=== PATIENT | female | born 1945 | race Caucasian/White ===

== ENCOUNTER → 2021-12-31 14:41 | Outpatient (CLI) | payer MEDICARE, SELFPAY ==
--- NOTE | ~2021-12-31 | MM_ITS ---
EXAMINATION: MM screening darcy BI w eulalio HISTORY: Screening TECHNIQUE: Craniocaudal and mediolateral oblique 3-D tomosynthesis images were obtained and synthetic 2-D images were generated. CAD analysis was submitted and interpreted. COMPARISON: No prior mammogram is available for comparison at this institution. BREAST PARENCHYMAL COMPOSITION: The breasts are heterogeneously dense, which may obscure small masses . FINDINGS: There are bilateral scattered asymmetries which are partially obscured by fibroglandular ti ssue. There are benign bilateral breast calcifications. No suspicious area of architectural distortio n is identified. IMPRESSION: 1. Bilateral breast asymmetries 2. Comparison to previous outside mammograms recommended to assess stability. BI-RADS Category 0: Incomplete: Needs additional imaging evaluation. Reviewed, dictated and finalized at location A.
--- NOTE | ~2021-12-31 | DEXA_ITS ---
Bone Density Report Name: FABIÁN HENRIQUEZ Age: 76 Sex: Female Ethnicity: White Date of : 1945 Indication: postmenopausal; screening for osteoporosis; height loss; hysterectomy; Referring Provider: TalAnnmarie Study: Bone densitometry was performed. Exam Date: December 31, 2021 Accession number: [id number] Bone Density: Region BMD T-score Z-score Classification AP Spine (L1-L4) 1.375 3.0 5.3 Normal Femoral Neck (Left) 0.912 0.6 2.6 Normal Total Hip (Left) 0.938 0.0 1.7 Normal Femoral Neck (Right) 1.004 1.4 3.4 Normal Total Hip (Right) 0.976 0.3 2.0 Normal Total Hip Mean 0.957 0.2 1.9 Normal World Health Organization criteria for BMD impression classify patients as: Normal (T-score at or above -1.0), Osteopenia (T-score between -1.0 and -2.5), or Osteoporosis (T-score at or below -2.5). 10-year Fracture Risk: FRAX not reported because: All T-scores for Spine Total, Hip Total, Femoral Neck at or above -1.0 Clinical Information Provided by Patient: Has the following medical conditions: Hysterectomy Patient maximum height was 70.5 Menopause Age: 30 Does not regularly consume dairy products Drinks caffeinated beverages Onset of menses at age 15 Number of children 0 Impression: The patient has normal bone mass. Discussion: BONE DENSITY IS ABOVE THE MINIMUM DESIRABLE LEVEL AT ALL SKELETAL SITES TESTED. This patient?s bone mineral density is above the minimum desirable level (T-score -1.0 or better) at all sites measured. The patient should follow a healthful lifestyle (good nutrition with adequate calcium and vitamin D, and appropriate weight-bearing exercise). Follow-Up: Consider repeating this study in 5 years or sooner if there is some new clinical indication. Reported by: GEOFFREY on 12/31/2021 3:03:00 PM. Reviewed, dictated and finalized at location AJennifer RAPP
== END ==
PROVIDERS: PCP Internal Medicine; Visit Provider Internal Medicine
DX: Z12.31 Encounter for screening mammogram for malignant neoplasm of breast (principal); Z78.0 Asymptomatic menopausal state; R92.8 Other abnormal and inconclusive findings on diagnostic imaging of breast
CPT/HCPCS: 77063; 77067; 77080

== ENCOUNTER → 2022-02-03 08:44 | Outpatient (CLI) | payer MEDICARE, SELFPAY ==
--- NOTE | ~2022-02-03 | MMUS_ITS ---
EXAMINATION: MM diagnostic darcy BI w eulalio, US breast BI complete HISTORY: Follow-up breast asymmetries TECHNIQUE: Additional 3-D tomosynthesis images of the breasts were performed and synthetic 2-D images were generated. CAD analysis was submitted and interpreted. High resolution bilateral complete breas t ultrasound was performed. COMPARISON: Comparison to multiple prior studies sequentially, with oldest reviewed study dated 09/26. BREAST PARENCHYMAL COMPOSITION: The breasts are heterogenously dense, which may obscure small masses FINDINGS: MAMMOGRAPHIC FINDINGS: There are benign bilateral breast calcifications. No suspicious masses, calcifications or architectur al distortion in either breast to suggest malignancy. ULTRASOUND: Complete bilateral US of all 4 quadrants of the breasts and retroareolar region was reviewed. Right breast: At 12:00, 5 cm from the nipple there is an oval hypoechoic mass with parallel orientati on, no posterior features and no internal vascularity measuring 3 mm, likely benign. Left breast: Normal heterogeneous echotexture without focal solid or cystic mass. IMPRESSION: 1. Probable benign right breast mass at 12:00, 5 cm from the nipple. 2. Recommend 6 month follow-up limited right breast ultrasound BI-RADS category 3, probably benign findings. Reviewed, dictated and finalized at location A. IMPRESSION: 1. Probable benign right breast mass at 12:00, 5 cm from the nipple. 2. Recommend 6 month follow-up limited right breast ultrasound BI-RADS category 3, probably benign findings.
== END ==
PROVIDERS: PCP Internal Medicine; Visit Provider Internal Medicine
DX: R92.8 Other abnormal and inconclusive findings on diagnostic imaging of breast (principal)
CPT/HCPCS: 76641; 77062; 77066; G0279

== ENCOUNTER 2022-06-10 10:19 | Emergency (ER) | payer MEDICARE, SELFPAY ==
--- NOTE | ~2022-06-10 | XR_ITS ---
EXAMINATION: XR ankle LT min 3V DATE: 06/10/2022 10:55 INDICATION: Left ankle pain. Fall. TECHNIQUE: 4 views of left ankle were obtained. COMPARISON: None. FINDINGS: Bone alignment is normal. No fracture. There is mild midfoot osteoarthritis. There is an en thesophyte at lateral aspect of calcaneal tuberosity. There is ankle soft tissue swelling. IMPRESSION: 1. No acute fracture. Reviewed, dictated and finalized at location A. NT SEARCHER IMPRESSION: 1. No acute fracture.
--- NOTE | ~2022-06-10 | XR_ITS ---
EXAMINATION: XR knee LT 3V DATE: 06/10/2022 10:55 INDICATION: Left knee injury and pain. TECHNIQUE: 3 views of left knee were obtained. COMPARISON: None. FINDINGS: Bone alignment is normal. No fracture. There is severe osteoarthritis of medial compartment and moderate osteoarthritis of lateral and patellofemoral compartments. There is a moderate-sized kn ee joint effusion. IMPRESSION: 1. Severe left knee osteoarthritis. 2. Moderate-sized left knee joint effusion. Reviewed, dictated and finalized at location A. TOR TECHNICIAN
--- NOTE | 2022-06-10 10:27 | ED.LOWEXIN ---
HPI - Extremity Injury (Lower) General Chief Complaint: Extremity Injury, Lower Stated Complaint: FALL/INJURED L KNEE/L ANKLE Time Seen by Provider: 06/10/22 11:01 Source: patient, RN notes reviewed and old records reviewed Mode of arrival: ambulatory Limitations: no limitations History of Present Illness HPI Narrative: 76-year-old female presents to the [facility] after tripping and falling with complaints of left knee and left ankle pain. Patient states that she was caring too much stuff last night about 1930 and fell onto her knee but also having pain to her ankle. No bruising noted. Minor swelling noted to the anterior knee. Decreased range of motion secondary to pain Has taken Tylenol. Has a history of diabetes, neuropathy and elevated blood pressure Related Data Home Medications Medication Instructions Recorded Confirmed metoprolol succinate 25 mg 25 mg PO DAILY 12/23/19 06/10/22 tablet,extended release 24 hr valsartan 80 mg tablet 80 mg PO DAILY 03/30/20 06/10/22 atorvastatin 20 mg tablet 20 mg DIRECTED 06/10/22 06/10/22 pantoprazole 40 mg tablet,delayed 40 mg PO DIRECTED 06/10/22 06/10/22 release Allergies Allergy/AdvReac Type Severity Reaction Status Date / Time prednisone Allergy Unknown Unknown Verified 07/08/21 09:36 Review of Systems Review of Systems: All systems reviewed & are unremarkable except as noted in HPI and below Constitutional: Constitutional: Reports no additional constitutional complaints, Denies chills and Denies fever(s) Eyes: Eyes: Reports no additional eye complaints ENT: Reports system reviewed and no additional complaints, except as documented Cardiovascular: Cardiovascular: Reports no additional cardiovascular complaints Respiratory: Respiratory: Reports no additional respiratory complaints Gastrointestinal: Gastrointestinal: Reports no additional gastrointestinal complaints Musculoskeletal: Musculoskeletal: Reports as per HPI, Reports arthralgias (Left knee, left ankle) and Reports joint swelling (Left knee, left ankle) Integumentary/Breasts: Skin/Breast: Reports system reviewed and no additional complaints, except as docu Neurologic: Reports system reviewed and no additional complaints, except as documented Psychiatric: Psychiatric: Reports no additional psychiatric complaints Allergic/Immunologic: Allergic/Immunologic: Reports no additional allergic/immunologic complaints [facility] Past Medical History Medical History (Updated 06/10/22 @ 11:14 by Tara Kim APRN) Diabetes mellitus HTN (hypertension) Family History Family History Sibling Diabetes mellitus Malignant neoplasm of prostate Mother Diabetes mellitus, Onset Age: 67 Acute myocardial infarction, Onset Age: 67 Father Diabetes mellitus, Onset Age: 71 Cerebrovascular accident, Onset Age: 71 Social History Social History Smoking status: Never smoker Alcohol intake: never Comments At the time of my signature, I reviewed and agree with the nursing past medical, surgical, social, and family history. There is no relevant family history pertinent to the patient complaint. Exam Const: General: healthy appearing, comfortable, no acute distress, well developed, alert and well nourished Nutritional Appearance: well nourished Orientation/consciousness: patient oriented x3 Limitations: no limitations HENMT: Head: normal to inspection Ears: external ears normal Eyes: General: appearance normal, both eyes and all related structures Pupils: Equal, round and reactive pupils present Neck: Neck: normal visual inspection, full ROM, no lymphadenopathy and no meningeal signs Chest: Chest palpation & inspection: normal inspection of the chest Resp: Effort & Inspection: normal respiratory effort and no use of accessory muscles Cardio: Rate: regular rate Rhy
[2022-06-10 10:33] VITALS: BP 180/86; PULSE 79; RESP 16; TEMP 36.1; O2SAT 99
== END 2022-06-10 11:30 | disposition home or self-care (01) ==
PROVIDERS: Emergency Provider Nurse Practitioner; PCP Internal Medicine
DX: M17.12 Unilateral primary osteoarthritis, left knee (principal); S93.402A Sprain of unspecified ligament of left ankle, initial encounter; M25.462 Effusion, left knee; E11.9 Type 2 diabetes mellitus without complications; I10 Essential (primary) hypertension; W01.0XXA Fall on same level from slipping, tripping and stumbling without subsequent striking against object, initial encounter
CPT/HCPCS: 73562; 73610; 99214; G0463

== ENCOUNTER 2022-09-04 05:56 | Emergency (ER) | payer MEDICARE, SELFPAY ==
[2022-09-04 05:59] VITALS: BP 122/68; PULSE 88; RESP 16; TEMP 36.7; O2SAT 98
--- NOTE | 2022-09-04 07:33 | ED.GENADULT ---
HPI - General Adult General Chief complaint: Back Pain/Injury Stated complaint: hip and back pain Time Seen by Provider: 09/04/22 07:04 History of Present Illness HPI narrative: 77-year-old female presented emerged department for evaluation of pain in her left lower back and left buttock. Patient states she is in the process of having follow-up with Ortho to have bilateral hip replacements. Patient states yesterday that she started having increased pain in her left hip. Patient did take some Tylenol for pain control but states she started to get upset stomach so she has not taken any pain since. Patient denies any specific falls or injuries. Patient denies any fevers. Patient denies any associated numbness or weakness. Patient describes a sharp pain in posterior left buttock that does radiate just down the the side of her leg. Patient denies any associated numbness or weakness of the left lower leg and denies any radiation of the pain to her feet. Patient does have a history of diabetes, hypertension and neuropathy Related Data Home Medications Medication Instructions Recorded Confirmed metoprolol succinate 25 mg 25 mg PO DAILY 12/23/19 06/10/22 tablet,extended release 24 hr valsartan 80 mg tablet 80 mg PO DAILY 03/30/20 06/10/22 atorvastatin 20 mg tablet 20 mg DIRECTED 06/10/22 06/10/22 pantoprazole 40 mg tablet,delayed 40 mg PO DIRECTED 06/10/22 06/10/22 release Allergies Allergy/AdvReac Type Severity Reaction Status Date / Time prednisone Allergy Unknown Unknown Verified 07/08/21 09:36 Review of Systems Review of Systems: CONSTITUTIONAL: Denies fever, chills, or sweats. EYES: Denies visual changes, redness, or discharge. ENT: Denies rhinorrhea, congestion, sore throat, or otalgia. CARDIOVASCULAR: Denies chest pain, palpitations, or edema. RESPIRATORY: Denies cough or dyspnea. GASTROINTESTINAL: Denies abdominal pain, nausea, vomiting, or diarrhea. GENITOURINARY: Denies dysuria or hematuria. SKIN: Denies rash or itching. MUSCULOSKELETAL: See HPI NEUROLOGIC: Denies headache, numbness, or weakness. [facility] Past Medical History Medical History (Updated 09/04/22 @ 07:39 by Braden Gutierrez MD) Diabetes mellitus HTN (hypertension) Family History Family History Sibling Diabetes mellitus Malignant neoplasm of prostate Mother Diabetes mellitus, Onset Age: 67 Acute myocardial infarction, Onset Age: 67 Father Diabetes mellitus, Onset Age: 71 Cerebrovascular accident, Onset Age: 71 Social History Social History Smoking status: Never smoker Alcohol intake: never Exam Narrative: APPEARANCE: Well appearing, no pain, no distress, well-nourished. HEAD: normocephalic, atraumatic. EYES: PERRLA/EOMI, conjunctivae clear. NOSE: Normal no drainage NECK: Supple. No adenopathy, no masses. RESPIRATORY: Airway patent, respirations nonlabored. Clear to auscultation bilaterally, no rales, rhonchi, wheezing. CARDIOVASCULAR: Regular rate and rhythm without murmurs rubs or gallops. ABDOMINAL: Soft, nontender, nondistended, normal bowel sounds MUSCULOSKELETAL: No midline spinal tenderness to palpation. Some tenderness over the left buttock. Normal strength of the left lower leg NEURO: Alert. Cranial nerves II through XII intact. Grossly intact. SKIN: Warm, dry. Normal Color Course Course Emergency Course: Suspect sciatic nerve issue. Patient will be treated with IM Toradol, p.o. Norflex and p.o. [place]. Patient and were updated on the results of the exam and plan for treatment. Patient was encouraged of close follow-up with her primary care physician as well. Patient was educated on reasons to return to the emergency room. All questions concerns were addressed. Vital Signs Vital signs: Vital Signs Temperature 98.0 F 09/04/22 05:59 Pulse Rate 88
[2022-09-04] MEDS: KETOROLAC 30 MG/ML VIAL (*BKC) IM (07:41)
[2022-09-04] MEDS: HYDROcodone/acetaminophen (*CRX) 5-325 MG TABLET 1 TAB PO (07:41)
[2022-09-04] MEDS: CYCLOBENZAPRINE HCL 10 MG TABLET PO (07:46)
== END 2022-09-04 07:54 | disposition home or self-care (01) ==
PROVIDERS: Emergency Provider Emergency Medicine; PCP Internal Medicine
DX: M54.42 Lumbago with sciatica, left side (principal); I10 Essential (primary) hypertension; E11.40 Type 2 diabetes mellitus with diabetic neuropathy, unspecified
CPT/HCPCS: 96372; 99283; A9270; J1885

== ENCOUNTER 2023-08-31 13:43 | Outpatient (CLI) | payer MEDICARE, SELFPAY ==
--- NOTE | ~2023-08-31 | MR_ITS ---
MRI of the lumbar spine Clinical History: Spinal stenosis Technique: Axial T2-weighted images, and sagittal T1-weighted, T2-weighted, and and T2 fat-sat images were acquired. Findings: There is no fracture or subluxation lumbar spine. There is straightening of the normal lumb ar lordosis. There is an intraosseous hemangioma of the L3 vertebral body. No suspicious marrow signa l abnormality seen. At L1-L2, there is diffuse disc bulge and moderate to advanced facet arthropathy. There is minimal ce ntral canal stenosis. There is moderate to advanced bilateral neural foraminal narrowing. At L2-L3, there is degenerative disc narrowing. Mild disc bulge and severe facet arthropathy result m inimal central canal stenosis. There is mild right neural foraminal narrowing. Left neural foramen pr eserved. At L3-L4, there is degenerative disc narrowing. Disc bulge and severe facet arthropathy result in mil d to moderate central canal stenosis. There is moderate left neural foraminal narrowing. Right neural foramen preserved. At L4-L5, there is degenerative disc narrowing with mild disc bulge and severe facet arthropathy. The re is mild central canal stenosis. There is minimal right neural foraminal narrowing. Left neural for amen preserved. At L5-S1, there is severe degenerative disc narrowing. There is disc osteophyte complex and moderate to advanced facet arthropathy, with mild to moderate central canal stenosis. There is mild left neura l foraminal narrowing. Right neural foramen preserved. Paravertebral soft tissues are unremarkable. Impression: Moderate degenerative spondylosis, as above. Reviewed, dictated and finalized at location . RACTIVE MARKETING STRATEGIST Impression: Moderate degenerative spondylosis, as above.
== END 2023-08-31 13:44 ==
PROVIDERS: PCP Orthopaedic Surgery; Visit Provider Orthopaedic Surgery
DX: M48.07 Spinal stenosis, lumbosacral region (principal); M43.06 Spondylolysis, lumbar region; M47.817 Spondylosis without myelopathy or radiculopathy, lumbosacral region
CPT/HCPCS: 72148

== ENCOUNTER 2024-03-30 09:58 | Outpatient (CLI) | payer MEDICARE, SELFPAY ==
--- NOTE | 2024-03-30 11:00 | NEURO_ITS ---
Impression: # Complains of numbness of right hand. # Severe right Carpal Tunnel Syndrome. # No ulnar neuropathy. # Needle/EMG exam mildly abnormal in right APB. Nerve Conduction Studies Anti Sensory Summary Table Stim Site NR Peak (ms) P-T Amp (?V) Site1 Site2 Delta-P (ms) Dist (cm) Yasmani (m/s) Left Median Anti Sensory (2-3nd Digit) Wrist 3.7 48.8 Wrist 2-3nd Digit 3.7 14.0 38 Wrist 3.7 63.7 Wrist 2-3nd Digit 3.7 14.0 38 Right Median Anti Sensory (2-3nd Digit) Wrist 6.4 8.1 Wrist 2-3nd Digit 6.4 14.0 22 Wrist 8.8 32.8 Wrist 2-3nd Digit 6.4 14.0 22 Left Radial Anti Sensory (Base 1st Digit) Wrist 2.8 18.6 Wrist Base 1st Digit 2.8 0.0 Right Radial Anti Sensory (Base 1st Digit) Wrist 2.6 21.0 Wrist Base 1st Digit 2.6 0.0 Left Ulnar Anti Sensory (5th Digit) Wrist 2.7 25.2 Wrist 5th Digit 2.7 14.0 52 Right Ulnar Anti Sensory (5th Digit) Wrist 2.8 21.6 Wrist 5th Digit 2.8 14.0 50 Motor Summary Table Stim Site NR Onset (ms) O-P Amp (mV) Site1 Site2 Delta-0 (ms) Dist (cm) Yasmani (m/s) Left Median Motor (Abd Poll Brev) Wrist 4.1 3.2 Elbow Wrist 5.6 33.0 59 Elbow 9.7 3.7 Right Median Motor (Abd Poll Brev) Wrist 8.4 5.1 Elbow Wrist 5.7 31.0 54 Elbow 14.1 4.7 Left Ulnar Motor (Abd Dig Minimi) Wrist 2.6 4.9 A Elbow Wrist 5.4 31.0 57 A Elbow 8.0 4.4 Right Ulnar Motor (Abd Dig Minimi) Wrist 2.8 5.2 A Elbow Wrist 5.7 32.0 56 A Elbow 8.5 3.8 F Wave Studies NR F-Lat (ms) L-R F-Lat (ms) Left Median (Mrkrs) (Abd Poll Brev) 29.53 3.80 Right Median (Mrkrs) (Abd Poll Brev) 33.33 3.80 Left Ulnar (Mrkrs) (Abd Dig Min) 29.77 1.17 Right Ulnar (Mrkrs) (Abd Dig Min) 28.60 1.17 EMG Side Muscle Nerve Root Ins Act Fibs Amp Dur Recrt Comment Right 1stDorInt Ulnar C8-T1 Nml Nml Nml Nml Nml Right Ext Indicis Radial (Post Int) C7-8 Nml Nml Nml Nml Nml Right Ext Digitorum Radial (Post Int) C7-8 Nml Nml Nml Nml Nml Right PronatorTeres Median C6-7 Nml Nml Nml Nml Nml Right ABD Dig Min Ulnar C8-T1 Nml Nml Nml Nml Nml Left Ext Indicis Radial (Post Int) C7-8 Nml Nml Nml Nml Nml Left Ext Digitorum Radial (Post Int) C7-8 Nml Nml Nml Nml Nml Left BrachioRad Radial C5-6 Nml Nml Nml Nml Nml Left PronatorTeres Median C6-7 Nml Nml Nml Nml Nml Right Abd Poll Brev Median C8-T1 Nml Nml Nml >12ms +1 MTDD
== END 2024-03-30 09:59 | disposition home or self-care (01) ==
PROVIDERS: PCP Internal Medicine; Visit Provider Orthopaedic Surgery
DX: G56.01 Carpal tunnel syndrome, right upper limb (principal)
CPT/HCPCS: 95886; 95911

== ENCOUNTER 2024-05-05 00:24 | Day surgery (SDC) | payer MEDICARE, SELFPAY ==
[2024-04-28 14:33] VITALS: BMI 23.9
--- NOTE | 2024-04-28 14:41 | PC.NURSE ---
Report to the Outpatient Waiting Room, entrance under the green pavilion located off [facility], at time _0930_ on date _[id number]_. Planned Procedure Time: _1130_.? Time changes happen often and if your time is changed the preop area will call you the afternoon before. - You and your visitor will be asked to self-screen and do not enter if you have any COVID symptoms. Please call surgeon if you need to reschedule. - A mask is optional within the hospital at this time. Patients may have clear liquids (water, carbonated beverages, clear teas, apple juice) until 3 hours prior to surgery with a maximum of 20 ounces. - No food from midnight until time of surgery and no smoking Take only the following medications with a SIP of water on the morning of surgery: __Metoprolol and Pregabalin DO NOT STOP ANY OF YOUR OTHER PRESCRIPTION MEDICATIONS PRIOR TO SURGERY EXCEPT THE FOLLOWING Medications to discontinue per physician __Probiotic stop 05-02-2024, Eliquis stop [phone] Please no make-up, nail kinyarwanda, hairspray, perfume, deodorant, or body powder the day of surgery.? No jewelry (including any body piercings) or valuables the day of surgery, leave them at home.? Please take a shower or bath the night before, or the morning of, surgery with an antibacterial soap.? Wear comfortable, loose fitting clothing.? - Jewelry must be removed prior to entering the operating room.? Rings and piercings that are not removed may be cut off. - The hospital will not accept responsibility for valuables.? - Please leave all valuables, including medications, at home the day of surgery. If you are going home after surgery, a licensed car pick up driver must drive you home.? - NO public transportation without another adult if you receive anesthesia. - We recommend that an adult stay with you for 24 hours following discharge. - We also recommend that you do not drive, make important decision, drink alcoholic beverages, or take any drugs that were not prescribed by your health care provider for at least 24 hours after your discharge time. Follow any additional instructions given to you from your surgeon. Telephone instructions given to __Emmy___and asked if any additional questions and then verbalized understanding. Patient advised to call surgeon office or pre surgery nurse liaison [phone] if any additional questions.
--- NOTE | 2024-05-02 12:27 | PM.IMHP ---
H&P: HPI History of Present Illness Date/Time: 05/02/24 12:27 Chief Complaint: Right carpal tunnel syndrome Narrative: 78-year-old female who presents today for a right carpal tunnel release. She has been having symptoms in the right hand that started in September or October of this year. Patient been waking up at night with her hand sleep. She has also been experiencing numbness through the day. Her numbness predominantly affects the thumb index and long finger. She is having no numbness in the 5th finger. 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 At this point patient has continued symptoms in the hand. Option of surgical release was discussed with her and patient would like to proceed with that. Review of Systems Review of Systems: All systems reviewed & are unremarkable except as noted in HPI and below PMFSH Past Medical History Medical History A-fib Diabetes mellitus History of myocardial infarction HTN (hypertension) Surgical History Surgical History H/O: hysterectomy History of back surgery Family History Family History (Updated 02/17/24 @ 16:11 by Kristin Colbert [facility]) Sibling Diabetes mellitus Malignant neoplasm of prostate Mother Diabetes mellitus, Onset Age: 67 Acute myocardial infarction, Onset Age: 67 Father Diabetes mellitus, Onset Age: 71 Cerebrovascular accident, Onset Age: 71 Social History Social History (Updated 04/04/24 @ 14:38 by Stefanie Fan CMA) Smoking status: Never smoker Second hand tobacco smoke exposure: Yes Alcohol intake: current Substance use: never Substance use type: does not use Do You Feel Safe in your Home?: Yes Lack of Transportation: No Lack of Food: Never True Current Housing: I Have Housing Concerned About Future Housing: No Difficulty Paying Gas/Electric Bills: No Difficulty Paying for Meds: No Currently Unemployed: No Education: Bachelor's Degree Difficulty w/ Childcare or Family Care: No Living arrangements: with family Occupation/Education: retired 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 Gender identity (if verbalized by the patient): Female Spiritual care concerns: No Meds Home Medications and Allergies Home Medications Medication Instructions Recorded Confirmed Type metoprolol succinate 25 mg 25 mg PO DAILY 12/23/19 04/28/24 History tablet,extended release 24 hr pregabalin 150 mg capsule 150 mg PO TID #90 caps 08/12/21 04/28/24 Rx pantoprazole 40 mg tablet,delayed 40 mg PO DIRECTED 06/10/22 04/28/24 History release acetaminophen 500 mg capsule 500 mg PO Q6H PRN Pain 02/17/24 04/28/24 History apixaban 5 mg tablet (Eliquis) 5 mg PO BID 02/17/24 04/28/24 History atorvastatin 40 mg tablet 40 mg PO DAILY 02/17/24 04/28/24 History famotidine 20 mg tablet 20 mg PO BID 02/17/24 04/28/24 History glipizide 5 mg tablet 5 mg PO DAILY 02/17/24 04/28/24 History valsartan 320 1 tablet PO DAILY 02/17/24 04/28/24 History mg-hydrochlorothiazide 12.5 mg tablet Lactobacillus 40-Bifidobact 1 cap PO DAILY 04/28/24 04/28/24 History 3-S.thermophilus 100 billion cell capsule (Probiotic) magnesium 500 mg tablet 500 mg PO BID 04/28/24 04/28/24 History Allergies Allergy/AdvReac Type Severity Reaction Status Date / Time prednisone AdvReac Intermediate Unknown Verified 04/28/24 14:28 pneumonia vaccine AdvReac Intermediate Swelling Uncoded 04/28/24 14:28 Exam Narrative: 78-year-old female alert pleasant. She has full range of motion of the right wrist fingers and elbow. She has a very positive Tinel's over the median nerve which causes or tingling in the long finger. There is normal thenar eminence in bulk. Normal interosseous strength. 2+ radial pulse. Positive carpal t
[2024-05-05] VITALS (9 sets, daily range): BP systolic 114–146; BP diastolic 62–86; PULSE 65–69; RESP 12–20; TEMP 36.3; O2SAT 99–100
[2024-05-05] MEDS: ACETAMINOPHEN 500 MG TABLET 1000 MG PO (10:27)
[2024-05-05] MEDS: LACTATED RINGERS 1,000 ML 30 ML IV CONT (10:45)
[2024-05-05 10:49] LABS: Glucose Point of Care 125 mg/dl (65-105)
[2024-05-05] MEDS: KETOROLAC 15 MG/ML VIAL (*BKC) IV PUSH (11:19)
--- NOTE | 2024-05-05 11:47 | WPDHPUPDATE1 ---
History and Physical Update Update Date/Time: 05/05/24 11:47 History and Physical has been reviewed, including an updated exam of the patient. There are NO changes in the patient's condition. Risks, benefits, and alternatives have been discussed and questions answered. Patient agrees to proceed with procedure.
--- NOTE | 2024-05-05 12:03 | P.PNAN_ITS ---
Anes - Eval Final PreProcedure Day of Procedure 05/05/24 12:03 Patient weight: normal Heart: regular rate and rhythm Lungs: clear to auscultation and normal air movement Airway: Mallampati scale class III Neurological: alert and oriented Last oral intake: >/= 8 hours ASA classification: III Emergent: no Anesthetic plan: proceed Anesthesia type and monitoring: general LMA Results Review: All pre-operative results and documents have been reviewed as part of the pre- operative evaluation. Informed Consent: The patient's anesthetic plan and its attendant risks and benefits were discussed with the patient/family/POA. Questions were solicited and answers provided to the satisfaction of the patient/family/POA.
--- NOTE | 2024-05-05 12:03 | WPDANESEPPF ---
Anes - Initial Pre Proc Eval Procedure: Operation Date: 05/05/24 11:30 Proposed Procedures p Right Carpal Tunnel Release - Steffen Ceballos MD Date/Time: 05/05/24 12:03 Surgeon: Steffen Ceballos MD Pre Op Diagnosis: right carpal tunnel syndrome Patient Data Age: 78 Gender: F Height: 1.77 m Weight: 76.7 kg Last Vital Signs Temp 36.3 C L 05/05/24 10:59 Pulse 65 05/05/24 10:59 Resp 16 05/05/24 10:59 BP 137/70 05/05/24 10:59 Pulse Ox 100 05/05/24 10:59 O2 Del Method Room Air 05/05/24 10:59 Allergies Allergy/AdvReac Type Severity Reaction Status Date / Time prednisone AdvReac Intermediate Unknown Verified 05/05/24 10:59 pneumonia vaccine AdvReac Intermediate Swelling Uncoded 05/05/24 10:59 Home Medications Medication Instructions Recorded Confirmed Type metoprolol succinate 25 mg 25 mg PO DAILY 12/23/19 04/28/24 History tablet,extended release 24 hr pregabalin 150 mg capsule 150 mg PO TID #90 caps 08/12/21 04/28/24 Rx pantoprazole 40 mg tablet,delayed 40 mg PO DIRECTED 06/10/22 04/28/24 History release acetaminophen 500 mg capsule 500 mg PO Q6H PRN Pain 02/17/24 04/28/24 History apixaban 5 mg tablet (Eliquis) 5 mg PO BID 02/17/24 04/28/24 History atorvastatin 40 mg tablet 40 mg PO DAILY 02/17/24 04/28/24 History famotidine 20 mg tablet 20 mg PO BID 02/17/24 04/28/24 History glipizide 5 mg tablet 5 mg PO DAILY 02/17/24 04/28/24 History valsartan 320 1 tablet PO DAILY 02/17/24 04/28/24 History mg-hydrochlorothiazide 12.5 mg tablet Lactobacillus 40-Bifidobact 1 cap PO DAILY 04/28/24 04/28/24 History 3-S.thermophilus 100 billion cell capsule (Probiotic) magnesium 500 mg tablet 500 mg PO BID 04/28/24 04/28/24 History Laboratory Tests 05/05/24 10:46 POC Capillary Glucose 125 H mg/dl (65-105) Patient hx anesthesia problems: none Family hx anesthesia problems: none Results Review: All pre-operative results and documents have been reviewed as part of the pre-operative evaluation. [facility] Past Medical History Medical History A-fib Diabetes mellitus History of myocardial infarction HTN (hypertension) Surgical History Surgical History H/O: hysterectomy History of back surgery Family History Family History Sibling Diabetes mellitus Malignant neoplasm of prostate Mother Diabetes mellitus, Onset Age: 67 Acute myocardial infarction, Onset Age: 67 Father Diabetes mellitus, Onset Age: 71 Cerebrovascular accident, Onset Age: 71 Social History Social History Smoking status: Never smoker Second hand tobacco smoke exposure: Yes Alcohol intake: current Substance use: never Substance use type: does not use Do You Feel Safe in your Home?: Yes Lack of Transportation: No Lack of Food: Never True Current Housing: I Have Housing Concerned About Future Housing: No Difficulty Paying Gas/Electric Bills: No Difficulty Paying for Meds: No Currently Unemployed: No Education: Bachelor's Degree Difficulty w/ Childcare or Family Care: No Living arrangements: with family Occupation/Education: retired 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
[2024-05-05] MEDS: ceFAZolin 2 GM/D5W 50 ML 2 GM/50 ML BAG IVPB (12:14)
[2024-05-05] MEDS: LIDOCAINE HCL 1% LOCAL INJ 10 ML VIAL INFILTRATE (12:14)
--- NOTE | 2024-05-05 12:54 | W.PM.PROC2 ---
Procedure Note - Detailed Date of Procedure 05/05/24 Pre-op Diagnosis right carpal tunnel syndrome Post-op Diagnosis Same Procedure Performed Right carpal tunnel release Surgeon Steffen Ceballos MD [employer] Director Cruz Souza Anesthesia General Description of Procedure Patient was brought to the operating room and general anesthesia was administered. The right arm was prepped draped usual fashion. She received 2 g of Ancef preoperatively. Limb was exsanguinated and tourniquet elevated to 220 mmHg. Local anesthesia was administered with 5 cc of 1% plain lidocaine A 2 cm longitudinal incision was made at the base of the palm in line with the radial border of the 4th ray. Dissection was carried down through the superficial palmar fascia to the transverse carpal ligament which was longitudinally incised. Complete release was achieved distally. Proximally a subcutaneous fat was elevated off the distal volar forearm fascia and a [place] elevator pass underneath the fascia to from the underlying nerve the fascia was split for a distance of 3 cm proximal to the flexor crease of the wrist completed decompression. The nerve was inspected. It was somewhat hyperemic and I perceived a slight indentation corresponding to the level of the transverse carpal ligament. Tourniquet was released and hemostasis was achieved wound irrigated with saline and closed with 5 0 nylon suture soft bulky dressing applied the patient transferred postop recovery room stable condition. Estimated Blood Loss 1 [facility] Billing Surgery - Charge Forward: Surgery Billing (Right carpal tunnel release)
[2024-05-05 13:09] LABS: Glucose Point of Care 97 mg/dl (65-105)
== END 2024-05-05 14:34 | disposition home or self-care (01) ==
PROVIDERS: PCP Internal Medicine; Visit Provider Orthopaedic Surgery
PROC: (CPT 64721; principal; 2024-05-05 11:30)
DX: G56.01 Carpal tunnel syndrome, right upper limb (principal); I10 Essential (primary) hypertension; E11.9 Type 2 diabetes mellitus without complications; I48.91 Unspecified atrial fibrillation; I25.2 Old myocardial infarction; Z79.01 Long term (current) use of anticoagulants; Z79.84 Long term (current) use of oral hypoglycemic drugs; Z98.890 Other specified postprocedural states; Z98.1 Arthrodesis status; Z80.42 Family history of malignant neoplasm of prostate; Z82.49 Family history of ischemic heart disease and other diseases of the circulatory system
CPT/HCPCS: 64721; 82948; A9270; J0690; J1100; J1596; J1885; J2003; J2405; J2704; J3010; J7120

== ENCOUNTER 2024-11-24 08:44 | Outpatient (NON) | payer MEDICARE, SELFPAY ==
--- OUTSIDE RECORDS SUMMARY | 2024-11-25 08:48 | XMS_ITS | Encounter Summary ---
Author Organization [facility] Address [address] [place] [address] Care Team Providers Care Process Development Engineer Name Role Phone Jose Maria Hernandez MD Primary Care Provider [phone] Annmarie Parada MD Primary Care Provider [phone] Madison Oakley RN Unavailable [phone] Encounter Details Date Type Department Care Team (Late st Contact Info) Description 09/25/2021 Abstract [facility], [address] [address] Abner Yin MA Social History Tobacco Use Types Packs/Day Years Used Date Smoking Tobacco: Never Smokeless Tobacco: Never Alcohol Use Standard Drinks/Week Comments Yes 1 (1 standard drink = 0.6 oz pur e alcohol) PHQ-2 Answer Date Recorded PHQ-2 Score - If the patient scores above 3, please move on to questions 3-9 0 09/26/2021 Comments Unknown Sex and Gender Information Value Date Recorded Sex Assigned at Female 09/23/2024 11:35 AM CRAWLER TRACTOR OPERATOR Legal Sex Female 1:27 PM CDT Gender Identity Female 09/23/2024 11:35 AM CRAWLER TRACTOR OPERATOR Sexual Orientation Straight 09/23/2024 11 :35 AM CRAWLER TRACTOR OPERATOR COVID-19 Exposure Response Date Recorded In the last 10 days, have yo u been in contact with someone who was confirmed or suspected to have Coronavirus/COVID-19? No / Unsure 09/25/2021 3:11 PM CRAWLER TRACTOR OPERATOR documented as of this encounter Plan of Treatment Upcoming Encounters Date Type Department Care Team (Late st Contact Info) Description 04/07/2025 9:00 AM CDT Office Visit [facility] Multispecialty Care [place] [address] [place] [address] [address] [place] [address] Annmarie Parada MD [address] [facility] [address] [place] [address] 06/19/2025 11:45 AM CRAWLER TRACTOR OPERATOR Office Visit [facility] [place] [address] Slim Florence MD Three [facility], [address] [place] [address] documented as of this encounter Procedures Procedure Name Priority Date/Time Associated Diagnosis Comments COMPREHENSIVE METABOLIC PANEL Routine 05/28/2021 documented in this encounter Results * COMPREHENSIVE METABOLIC PANEL (05/28/2021) SODIUM S/P/B 143 POTASSIUM S/P/B 4.8 CHLORIDE S/P/B 107 CALCIUM S/P/B 8.2 BUN 12 CREATININE S/P/B 0.6 0.5 - 1.0 ALKALINE PHOSPHATASE S/P/B 117 ALT 11 AST 13 BILIRUBIN TOTAL S/P/B 0.6 ALBUMIN S/P/B 3.8 3.5 - 5.0 TOTAL PROTEIN S/P/B 6.3 05/28/2021 us Doc [facility] Abstract LABORATORY Final Result documented in this encounter Visit Diagnoses Not on filedocumented in this encounter Care Teams Process Development Engineer Relationship Specialty Start Date End Date Jose Maria Hernandez MD [address] [place] [address] PCP - General INTERNAL MEDICINE 05/01/21 09/25/21 Annmarie Parada MD [address] [facility] [address] [place] [address] PCP - General INTERNAL MEDICINE 09/26/21 Madison Oakley, RN [address] [place] [address] Digital Composer (Ambulatory) REGISTERED NURSE 03/05/23 04/05/23 documented as of this encounter
--- OUTSIDE RECORDS SUMMARY | 2024-11-25 08:48 | XMS_ITS | Encounter Summary ---
Author Organization [facility] Address [facility] [place] [address] Care Team Providers Care Monogram And Letter Paster Name Role Phone Annmarie Parada MD Primary Care Provider [phone] Encounter Details Date Type Department Care Team (Late st Contact Info) Description 12/23/2023 Busap Message Enc [facility] - [address] [place] [address] [facility] Provider 6-Month Follow Up Social History Tobacco Use Types Packs/Day Years Used Date Smoking Tobacco: Never Smokeless Tobacco: Never Comments:counseled by Dr Doris owens Alcohol Use Standard Drinks/Week Comments Yes 1 (1 standard drink = 0.6 oz pur e alcohol) weekly PHQ-2 Answer Date Recorded PHQ-2 Score - If the patient scores above 3, please move on to questions 3-9 0 05/09/2022 Comments No Sex and Gender Information Value Date Recorded Sex Assigned at Female 09/23/2024 11:35 AM MACHINE SNELLER Legal Sex Female 1:27 PM CDT Gender Identity Female 09/23/2024 11:35 AM MACHINE SNELLER Sexual Orientation Straight 09/23/2024 11 :35 AM MACHINE SNELLER documented as of this encounter Plan of Treatment Upcoming Encounters Date Type Department Care Team (Late st Contact Info) Description 04/07/2025 9:00 AM CDT Office Visit [facility] - [place] [address] [address] [place] [address] Annmarie Parada MD [facility] [address] 06/19/2025 11:45 AM MACHINE SNELLER Office Visit [facility] [address] Slim Florence MD [facility], [address] [place] [address] documented as of this encounter Visit Diagnoses Not on filedocumented in this encounter Additional Health Concerns Assessment Noted Time PHQ-9 Depression Total Score: 0 09/27/19 22 8:56 AM MACHINE SNELLER documented as of this encounter Care Teams Monogram And Letter Paster Relationship Specialty Start Date End Date Annmarie Parada MD [address] [place] [address] PCP - General INTERNAL MEDICINE 09/26/21 documented as of this encounter
--- OUTSIDE RECORDS SUMMARY | 2024-11-25 08:48 | XMS_ITS | Encounter Summary ---
Author Organization [facility] Address [facility] [place] [address] Care Team Providers Care Aeronautical Inspector Name Role Phone Annmarie Parada MD Primary Care Provider [phone] Madison Oakley RN Unavailable [phone] Encounter Details Date Type Department Care Team (Late st Contact Info) Description 10/30/2022 Prep for Procedure [facility] [address] [place] [address] Dennys Lara MD [address] [place] [id number] Social History Tobacco Use Types Packs/Day Years [...] Sex Assigned at Female 09/23/2024 11:35 AM PROCUREMENT MANAGER Legal Sex Female 1:27 PM CDT Gender Identity Female 09/23/2024 11:35 AM PROCUREMENT MANAGER Sexual Orientation Straight 09/23/2024 11 :35 AM PROCUREMENT MANAGER COVID-19 Exposure Response Date Recorded In the last 10 days, have yo u been in contact with someone who was confirmed or suspected to have Coronavirus/COVID-19? No / Unsure 10/30/2022 2:57 PM CDT documented as of this encounter Plan of Treatment Upcoming Encounters Date Type Department Care Team (Late st Contact Info) Description 04/07/2025 9:00 AM CDT Office Visit [facility] Multispecialty Care - [address] [place] [address] Annmarie Parada MD [address] [facility] [address] [place], [place] [address] 06/19/2025 11:45 AM PROCUREMENT MANAGER Office Visit [facility] [address] [place] [address] [address] [place], [place] [id number] Slim Florence MD [facility], [address] [place] [address] documented as of this encounter Results * ECG 12-Lead (10/30/2022 3:19 PM CDT) 10/30/2022 3:19 PM CDT Narrative [facility] ([facility]) RAD - 10/30/2022 9:01 PM CDT [facility] Test Date: 2022-10-30 Pat Name: FABIÁN BILLINGS Department: 85 Room: Gender: Female Coin Wrapping Machine Operator: : 1945 Requested By: DENNYS LARA Order Number: [id number] Jeff BALTAZAR: Blake Langston Measurements Intervals [place] Rate: 66 P: 47 NC: 113 QRS: 34 QRSD: 97 T: 28 QT: 410 QTc: 432 Interpretive Statements SINUS RHYTHM WITH SHORT NC INTERVAL Compared to ECG 06/03/2021 13:16:44 Short NC interval now present Sinus arrhythmia no longer present Procedure Note Blake Langston MD - 10/30/2022 [facility] Test Date: 2022-10-30 Pat Name: FABIÁN BILLINGS Department: 85 Room: Gender: Female Coin Wrapping Machine Operator: : 1945 Requested By: DENNYS LARA Order Number: [id number] Reading MD: Blake Langston Measurements Intervals [place] Rate: 66 P: 47 NC: 113 QRS: 34 QRSD: 97 T: 28 QT: 410 QTc: 432 Interpretive Statements SINUS RHYTHM WITH SHORT NC INTERVAL Compared to ECG 06/03/2021 13:16:44 Short NC interval now present Sinus arrhythmia no longer present us Dennys Lara MD ECG ORDERABLES Final Result [facility]) [facility] documented in this encounter Visit Diagnoses Diagnosis Preop testing- Primary Preoperative examination, unspecified Preop testing Preoperative examination, unspecified documented in this encounter Additional Health Concerns Assessment Noted Time PHQ-9 Depression Total Score: 0 09/27/19 22 8:56 AM PROCUREMENT MANAGER documented as of this encounter Care Teams Aeronautical Inspector Relationship Specialty Start Date End Date Annmarie Parada MD [address] [facility] [address] [place] [address] PCP - General INTERNAL MEDICINE 09/26/21 Madison Oakley, RN [address] [place] [address] Auto Finance Sales Rep (Ambulatory) REGISTERED NURSE 03/05/23 documented as of this encounter
--- OUTSIDE RECORDS SUMMARY | 2024-11-25 08:48 | XMS_ITS | Encounter Summary ---
Author Organization [facility] Address [address] [place] [address] Care Team Providers Care Geriatric Physical Therapist Name Role Phone Annmarie Parada MD Primary Care Provider [phone] Madison Oakley RN Unavailable [phone] Encounter Details Date Type Department Care Team (Latest Contact Info) Description 05/02/2022 GlycoPurehart Message Enc [facility] Medical Group Multispecialty Care - [place] [address] [address] [place] [address] Annmarie Parada MD [address] [place] [address] [address] [place] [address] Feosol iron tablets Social History Tobacco Use Types Packs/Day Years Used Date Smoking Tobacco: Never Smokeless Tobacco: Never Comments:counseled by Dr Doris owens Alcohol Use Standard Drinks/Week Comments Yes 1 (1 standard drink = 0.6 oz pur e alcohol) PHQ-2 Answer Date Recorded PHQ-2 Score - If the patient scores above 3, please move on to questions 3-9 0 09/26/2021 Comments No Sex and Gender Information Value Date Recorded Sex Assigned at Female 09/23/2024 11:35 AM PHOTOGRAPHER'S MODEL Legal Sex Female 1:27 PM CDT Gender Identity Female 09/23/2024 11:35 AM PHOTOGRAPHER'S MODEL Sexual Orientation Straight 09/23/2024 11 :35 AM PHOTOGRAPHER'S MODEL COVID-19 Exposure Response Date Recorded In the last 10 days, have yo u been in contact with someone who was confirmed or suspected to have Coronavirus/COVID-19? No / Unsure 05/05/2022 11:02 AM CDT documented as of this encounter Plan of Treatment Upcoming Encounters Date Type Department Care Team (Late st Contact Info) Description 04/07/2025 9:00 AM CDT Office Visit [facility] Multispecialty Care - [place] [address] [address] [place] [address] Annmarie Parada MD [address] [place] [address] 06/19/2025 11:45 AM PHOTOGRAPHER'S MODEL Office Visit [facility] [address] Slim Florence MD [facility], [address] [place] [address] documented as of this encounter Visit Diagnoses Not on filedocumented in this encounter Additional Health Concerns Assessment Noted Time PHQ-9 Depression Total Score: 0 09/27/19 22 8:56 AM PHOTOGRAPHER'S MODEL documented as of this encounter Care Teams Geriatric Physical Therapist Relationship Specialty Start Date End Date Annmarie Parada MD [address] [place] [address] PCP - General INTERNAL MEDICINE 09/26/21 Madison Oakley, RN [address] [place] [address] Fur Tanner (Ambulatory) REGISTERED NURSE 03/05/23 documented as of this encounter
--- OUTSIDE RECORDS SUMMARY | 2024-11-25 08:48 | XMS_ITS | Encounter Summary ---
Author Organization [facility] Address [address] [place] [address] Phone Care Team Providers Care Fish And Game Club Manager Name Role Phone Jose Maria Hernandez MD Primary Care Provide r Encounter Details Date Type Department Care Team (Latest Contact Info) Description 07/10/2020 Orders Only [facility] Scanning, Provider Social History Tobacco Use Types Packs/Day Years Used Date Smoking Tobacco: Never Smokeless Tobacco: Never Alcohol Use Standard Drinks/Week Comments Yes 0 (1 standard drink = 0.6 oz pur e alcohol) Comments Unknown Sex and Gender Information Value Date Recorded Sex Assigned at Not on file Legal Sex Female 11:31 PM PRODUCT PROMOTER SALES PERSON Gender Identity Female 11/10/2019 9:28 AM CDT Sexual Orientation Not on file documented as of this encounter Progress Notes * Lorena Rowe MD - 07/10/2020 11:59 PM CST I am resent the same copy of labs that is still not all legible. My comments are same as 07/09: Labs are not all legible. She should discuss the results with Dr. Hernandez who may have a more legible copy. UCT PROMOTER SALES PERSON * Tara Wallace RN - 07/10/2020 11:59 PM CST 2/: spoke w/ pt informing her. She will discuss w/ PCP. UCT PROMOTER SALES PERSON documented in this encounter Plan of Treatment Not on file documented as of this encounter Procedures Procedure Name Priority Date/Time Associated Diagnosis Comments SCAN - LABS 07/10/2020 documented in this encounter Results * SCAN - LABS (07/10/2020) us Provider Scanning Final Result documented in this encounter Visit Diagnoses Not on filedocumented in this encounter Care Teams Fish And Game Club Manager Relationship Specialty Start Date End Date Jose Maria Hernandez MD [address] [place] [address] PCP - General 11/10/16 documented as of this encounter
--- OUTSIDE RECORDS SUMMARY | 2024-11-25 08:48 | XMS_ITS | Clinical Summary ---
Author Organization [facility] Address [address] [place] [address] Care Team Providers Care Machine Try Out Setter Name Role Phone Jose Maria Hernandez MD Primary Care Provide r Allergies No known active allergies Medications meloxicam (MOBIC) 7.5 mg tablet take 1 tablet (7.5MG) by oral route every day 0 3 Active Additional Information Patient not taking.Reported on 11/14/2019 allopurinol (ZYLOPRIM) 100 mg tablet take 1 tablet (100MG) by oral route 3 times every day 0 3 Active Additional Information Patient not taking.Reported on 11/14/2019 colchicine (COLCRYS) 0.6 mg tablet take 2 tablet (1.2MG) by oral route initially, then take 1 tablet in 1 hour 0 3 Active Additional Information Patient not taking.Reported on 02/16/2020 pregabalin (LYRICA) 150 mg capsule Take 1 capsule (150 mg total) by mouth 3 (three) times a day. 90 capsule 7 Active aspirin 81 mg tablet Take 1 tablet by mouth daily. 1 8 Active metFORMIN (GLUCOPHAGE) 500 mg tablet Take 1 tablet by mouth 2 (two) times a day. 1 8 Active traMADol (ULTRAM) 50 mg tablet Take 100 mg by mouth nightly. 1 8 Active hydroCHLOROthiaz eliza (HYDRODIURIL) 25 mg tablet TAKE 1 TABLET BY MOUTH DAILY 90 tablet 1 9 Active Additional Information Patient not taking.Reported on 11/14/2019 Lactobacillus acidophilus (PROBIOTIC ORAL) Take by mouth Active isosorbide mononitrate ER (IMDUR) 30 mg 24 hr tabletIndication s:prevention of anginal pain in coronary artery disease Take 1 tablet (30 mg total) by mouth daily 30 tablet 11 0 Active nitroglycerin (Nitrostat) 0.4 mg SL tabletIndication s:acute episode of anginal pain Place 1 tablet (0.4 mg total) under the tongue every 5 (five) minutes as needed for chest pain Up to 3 times , if pain persists call 911 50 tablet 1 0 Active metoprolol XL (TOPROL-XL) 25 mg extended release tablet Take 1 tablet (25 mg total) by mouth daily 90 tablet 1 Active valsartan (DIOVAN) 80 mg tablet TAKE 1 TABLET BY MOUTH EVERY DAY 30 tablet 1 Active atorvastatin (LIPITOR) 80 mg tablet Take 1 tablet (80 mg total) by mouth daily 30 tablet 1 1 Active Active Problems Problem Noted Date Diagnosed Date Dyspnea 02/16/2020 Coronary artery disease invo lving [place] coronary artery of [place] heart without angina pectoris 02/16/2020 Sensorineural hearing loss ( SNHL) of left ear with restricted hearing of right ear 10/15/2018 Mixed conductive and sensori neural hearing loss of right ear with restricted hearing of left ear 10/15/2018 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 Lumbosacral radiculopathy 12/10/2012 Overview (10/23/2016): Lumbosacral radiculopathy Hyperlipidemia 10/13/2010 Hypertension 10/13/2010 Medical History Medical History Date Comments Personal history of other sp ecified conditions History of fibrocystic disea se of breast - (Added by TW Conv) Benign neoplasm of breast Fibroa denoma of breast - (Added by TW Conv) Hyperuricemia without signs of inflammatory arthritis and tophaceous disease Asymptomatic hyperuricemia - (Added by TW Conv) 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 - (Added by TW Conv) Female climacteric state [place] mehnaz symptoms - (Added by TW Conv) HL (hearing loss) Family History Medical History Relation Name Comments Diabetes Brother 1 Diabetes Mellit us - (Added by TW Conv) Diabetes Brother 2 Diabetes Mellit us - (Added by TW Conv) Coronary artery disease Father Marcell nary Artery Disease - (Added by TW Conv) Diabetes Father Diabetes mellit us; /Diabetes Mellitus - (Added by TW Conv) Hypertension Father Hypertension - (Added by TW Conv) Stroke Father Stroke Syndrome - (Added by TW Conv) Coronary artery disease Mother Marcell nary Artery Disease - (Added by TW Conv) Diabetes Mother Diabetes mellit us; /Diabetes Mellitus - (Added by TW Conv) Heart attack Mother Family history of heart attack - (Added by TW Conv) Hypertension Mother Hypertension - (Added by TW Conv) Sudden Cardiac Mother Family history of sudden cardiac - (Added by TW Conv) Diabetes Other 1 Diabetes Mellit us - (Added by TW Conv) Hypertension Other 2 Hypertension - (Added by TW Conv) Coronary artery disease Other 3 Marcell nary Artery Disease - (Added by TW Conv) Stroke Other 4 Stroke Syndrome - (Added by TW Conv) Diabetes Sister Diabetes Mellit us - (Added by TW Conv) Relation Name Status Comments Brother 1 Brother 2 Father Mother Other 1 Other 2 Other 3 Other 4 Sister Social History Tobacco Use Types Packs/Day Years Used Date Smoking Tobacco: Never Smokeless Tobacco: Never Alcohol Use Standard Drinks/Week Comments Yes 0 (1 standard drink = 0.6 oz pur e alcohol) Comments Unknown Sex and Gender Information Value Date Recorded Sex Assigned at Not on file Legal Sex Female 11:31 PM SAFETY ADMINISTRATOR Gender Identity Female 11/10/2019 9:28 AM CDT Sexual Orientation Not on file Obstetrics History Last Filed Vital Signs Vital Sign Reading Time Taken Comments Blood Pressure 131/68 07/17/2020 11:24 AM SAFETY ADMINISTRATOR Pulse 73 07/17/2020 11:24 AM SAFETY ADMINISTRATOR Temperature 36.3 C (97.3 F) 02/16/2020 9:49 AM CDT Respiratory Rate - - Oxygen Saturation 100% 02/16/2020 9:49 AM CDT Inhaled Oxygen Concentration - - Weight 76.7 kg (169 lb) 07/17/2020 11:24 AM SAFETY ADMINISTRATOR Height 180.3 cm (5' 11 ) 07/17/2020 11:24 AM SAFETY ADMINISTRATOR Body Mass Index 23.57 07/17/2020 11:24 AM SAFETY ADMINISTRATOR Plan of Treatment Not on file Insurance [facility] MEDICARE ADVANTAGE [facility] MEDIC[facility] Address: [address] [place], [place] [id number] [facility] MEDICARE ADVANTAGE [facility]IC[facility] Address: [address] [place] [address] Care Teams Machine Try Out Setter Relationship Specialty Start Date End Date Jose Maria Hernandez MD [address] [place] [address] PCP - General 11/10/16
--- OUTSIDE RECORDS SUMMARY | 2024-11-25 08:48 | XMS_ITS | Clinical Summary ---
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 Documents Scanned SCANNING Final Result from Last 3 Months or Most Recently Relevant to Health Maintenance Insurance [employer] Care Teams Instructional Design Technologist Relationship Specialty Start Date End Date Annmarie Parada MD [address] [facility] [address] [place] [address] PCP - General INTERNAL MEDICINE 09/26/21
--- OUTSIDE RECORDS SUMMARY | 2024-11-25 08:48 | XMS_ITS | Encounter Summary ---
Author Organization [facility] - [facility] Address [facility] [place] [address] Care Team Providers Care Aviation Technician Aircraft Name Role Phone Annmarie Parada MD Primary Care Provider [phone] Madison Oakley RN Unavailable [phone] Encounter Details Date Type Department Care Team (Late st Contact Info) Description 04/29/2022 LaunchKey Message Enc [facility] Medical Group Multispecialty Care - [address] [place] [address] Gecko TVt, [facility] Provider Lab Results Social History Tobacco Use Types Packs/Day Years [...] Sex Assigned at Female 09/23/2024 11:35 AM RECREATION THERAPY AIDE Legal Sex Female 1:27 PM CDT Gender Identity Female 09/23/2024 11:35 AM RECREATION THERAPY AIDE Sexual Orientation Straight 09/23/2024 11 :35 AM RECREATION THERAPY AIDE COVID-19 Exposure Response Date Recorded In the last 10 days, have yo u been in contact with someone who was confirmed or suspected to have Coronavirus/COVID-19? No / Unsure 04/28/2022 8:58 AM CDT documented as of this encounter Plan of Treatment Upcoming Encounters Date Type Department Care Team (Late st Contact Info) Description 04/07/2025 9:00 AM CDT Office Visit [facility] Medical Group Multispecialty Care - [address] [address] [address] [place] [address] Annmarie Parada MD [address] [place] [address] 06/19/2025 11:45 AM RECREATION THERAPY AIDE Office Visit [facility] [address] lSim Florence MD [facility], [address] [place] [address] documented as of this encounter Visit Diagnoses Not on filedocumented in this encounter Additional Health Concerns Assessment Noted Time PHQ-9 Depression Total Score: 0 09/27/19 22 8:56 AM RECREATION THERAPY AIDE documented as of this encounter Care Teams Aviation Technician Aircraft Relationship Specialty Start Date End Date Annmarie Parada MD [address] [place] [address] PCP - General INTERNAL MEDICINE 09/26/21 Madison Oakley, RN [address] [place] [address] Shorer (Ambulatory) REGISTERED NURSE 03/05/23 documented as of this encounter
--- OUTSIDE RECORDS SUMMARY | 2024-11-25 08:48 | XMS_ITS | Referral Summary ---
Author Organization [facility] Address [address] [place] [address] Care Team Providers Care Surgical Supplies Sterilizer Name Role Phone Jose Maria Hernandez MD [...] Dyspnea 02/16/2020 Coronary artery disease invo lving [place] coronary artery of [place] heart without angina pectoris 02/16/2020 Sensorineural hearing loss ( SNHL) of left ear with restricted hearing of right ear 10/15/2018 Mixed conductive and sensori neural hearing loss of right ear with restricted hearing of left ear 10/15/2018 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 Lumbosacral radiculopathy 12/10/2012 Overview (10/23/2016): Lumbosacral radiculopathy Hyperlipidemia 10/13/2010 Hypertension 10/13/2010 Social History Tobacco Use Types Packs/Day Years Used Date Smoking Tobacco: Never Smokeless Tobacco: Never Alcohol Use Standard Drinks/Week Comments Yes 0 (1 standard drink = 0.6 oz pur e alcohol) Comments Unknown Sex and Gender Information Value Date Recorded Sex Assigned at Not on file Legal Sex Female 11:31 PM STATUE CARVER Gender Identity Female 11/10/2019 9:28 AM CDT Sexual Orientation Not on file Last Filed Vital Signs Vital Sign Reading Time Taken Comments Blood Pressure 131/68 07/17/2020 11:24 AM STATUE CARVER Pulse 73 07/17/2020 11:24 AM STATUE CARVER Temperature 36.3 C (97.3 F) 02/16/2020 9:49 AM CDT Respiratory Rate - - Oxygen Saturation 100% 02/16/2020 9:49 AM CDT Inhaled Oxygen Concentration - - Weight 76.7 kg (169 lb) 07/17/2020 11:24 AM STATUE CARVER Height 180.3 cm (5' 11 ) 07/17/2020 11:24 AM STATUE CARVER Body Mass Index 23.57 07/17/2020 11:24 AM STATUE CARVER Plan of Treatment Not on file Insurance * Guarantor: Fabián Billings Account Type Relation to Patient Date of Phone Billing Address Personal/Family Self 1945 [id number] MEDICARE ADVANTAGE [facility] MEDICARE ADVANTAGE Care Teams Surgical Supplies Sterilizer Relationship Specialty Start Date End Date Jose Maria Hernandez MD [address] [place] [address] PCP - General 11/10/16
--- OUTSIDE RECORDS SUMMARY | 2024-11-25 08:48 | XMS_ITS | Encounter Summary ---
Author Organization [facility] - [facility] Address [facility] [place] [address] Care Team Providers Care Tribal Judge Name Role Phone Annmarie Parada MD Primary Care Provider [phone] Madison Oakley RN Unavailable [phone] Encounter Details Date Type Department Care Team (Late st Contact Info) Description 01/10/2022 REGEN Energy Message Enc [facility] Medical Group Multispecialty Care - [address] [place] [address] Neuralieve, [facility] Provider Test Result Social History Tobacco Use Types Packs/Day Years [...] Sex Assigned at Female 09/23/2024 11:35 AM INSIDE SOLAR SALES CONSULTANT Legal Sex Female 1:27 PM CDT Gender Identity Female 09/23/2024 11:35 AM INSIDE SOLAR SALES CONSULTANT Sexual Orientation Straight 09/23/2024 11 :35 AM INSIDE SOLAR SALES CONSULTANT COVID-19 Exposure Response Date Recorded In the last 10 days, have yo u been in contact with someone who was confirmed or suspected to have Coronavirus/COVID-19? No / Unsure 01/06/2022 9:52 AM CDT documented as of this encounter Plan of Treatment Upcoming Encounters Date Type Department Care Team (Late st Contact Info) Description 04/07/2025 9:00 AM CDT Office Visit [facility] Medical Group Multispecialty Care - [address] [address] [address] [place] [address] Annmarie Parada MD [address] [place] [address] 06/19/2025 11:45 AM INSIDE SOLAR SALES CONSULTANT Office Visit [facility] [address] Slim Florence MD [facility], [address] [place] [address] documented as of this encounter Visit Diagnoses Not on filedocumented in this encounter Additional Health Concerns Assessment Noted Time PHQ-9 Depression Total Score: 0 09/27/19 22 8:56 AM INSIDE SOLAR SALES CONSULTANT documented as of this encounter Care Teams Tribal Judge Relationship Specialty Start Date End Date Annmarie Parada MD [address] [place] [address] PCP - General INTERNAL MEDICINE 09/26/21 Madison Oakley, RN [address] [place] [address] Early Childhood Education Specialist (Ambulatory) REGISTERED NURSE 03/05/23 documented as of this encounter
--- OUTSIDE RECORDS SUMMARY | 2024-11-25 08:48 | XMS_ITS | Encounter Summary ---
Author Organization [facility] - [facility] Address [facility] [place] [address] Care Team Providers Care Woodyard Operator Name Role Phone Annmarie Parada MD Primary Care Provider [phone] Madison Oakley RN Unavailable [phone] Encounter Details Date Type Department Care Team (Late st Contact Info) Description 01/08/2022 Vinveli Message Enc [facility] Medical Group Multispecialty Care - [address] [place] [address] Stat Doctors, [facility] Provider test results Social History Tobacco Use Types Packs/Day Years [...] Sex Assigned at Female 09/23/2024 11:35 AM SCANNING CLERK Legal Sex Female 1:27 PM CDT Gender Identity Female 09/23/2024 11:35 AM SCANNING CLERK Sexual Orientation Straight 09/23/2024 11 :35 AM SCANNING CLERK COVID-19 Exposure Response Date Recorded In the last 10 days, have yo u been in contact with someone who was confirmed or suspected to have Coronavirus/COVID-19? No / Unsure 01/06/2022 9:52 AM CDT documented as of this encounter Plan of Treatment Upcoming Encounters Date Type Department Care Team (Late st Contact Info) Description 04/07/2025 9:00 AM CDT Office Visit [facility] Medical Group Multispecialty Care - [address] [address] [address] [place] [address] Annmarie Parada MD [address] [place] [address] 06/19/2025 11:45 AM SCANNING CLERK Office Visit [facility] [address] Slim Florence MD [facility], [address] [place] [address] documented as of this encounter Visit Diagnoses Not on filedocumented in this encounter Additional Health Concerns Assessment Noted Time PHQ-9 Depression Total Score: 0 09/27/19 22 8:56 AM SCANNING CLERK documented as of this encounter Care Teams Woodyard Operator Relationship Specialty Start Date End Date Annmarie Parada MD [address] [place] [address] PCP - General INTERNAL MEDICINE 09/26/21 Madison Oakley, RN [address] [place] [address] Stock Worker And Deliverer (Ambulatory) REGISTERED NURSE 03/05/23 documented as of this encounter
--- OUTSIDE RECORDS SUMMARY | 2024-11-25 08:48 | XMS_ITS | Encounter Summary ---
Author Organization [facility] Address [facility] [place] [address] Care Team Providers Care Narcotics And/Or Vice Detective Name Role Phone Annmarie Parada MD Primary Care Provider [phone] Encounter Details Date Type Department Care Team (Late st Contact Info) Description 10/20/2024 Prep for Procedure [facility] [address] [place], [place] [id number] Dennys Lara MD [address] [place] [address] Social History Tobacco Use Types Packs/Day Years Used Date Smoking Tobacco: Never Smokeless Tobacco: Never Comments:counseled by Dr Doris owens Alcohol Use Standard Drinks/Week Comments Not Currently 0 (1 standard drink = 0.6 oz pur e alcohol) 0 PHQ-2 Answer Date Recorded Patient Health Questionnaire-2 Score 0 09/23/2024 Comments No Sex and Gender Information Value Date Recorded Sex Assigned at Female 09/23/2024 11:35 AM CONE RUNNER Legal Sex Female 1:27 PM CDT Gender Identity Female 09/23/2024 11:35 AM CONE RUNNER Sexual Orientation Straight 09/23/2024 11 :35 AM CONE RUNNER documented as of this encounter Plan of Treatment Upcoming Encounters Date Type Department Care Team (Late st Contact Info) Description 04/07/2025 9:00 AM CDT Office Visit [facility] Medical [facility] Multispecialty Care - [address] [address] [address] [place] [address] Annmarie Parada MD [address] [facility] [address] [place] [address] 06/19/2025 11:45 AM CONE RUNNER Office Visit [facility] [address] [place] [address] [address] [place] [address] Slim Florence MD [facility], [address] [place] [address] documented as of this encounter Results * ECG 12-Lead (10/21/2024 1:37 PM CDT) 10/21/2024 1:37 PM CDT Narrative [facility] RAD - 10/24/2024 10:59 AM CDT [facility] Test Date: 2024-10-21 Pat Name: FABIÁN BILLINGS Department: 85 Room: Gender: Female Lard Maker: : 1945 Requested By: DENNYS LARA Order Number: [id number] Reading MD: Uli Way Measurements Intervals Brogue Rate: 51 P: 87 HI: 192 QRS: 40 QRSD: 91 T: 49 QT: 426 QTc: 396 Interpretive Statements SINUS BRADYCARDIA WITH SINUS ARRHYTHMIA Compared to ECG 04/04/2024 11:53:07 Sinus bradycardia is present Procedure Note Uli Way MD - 10/24/2024 [facility] Test Date: 2024-10-21 Pat Name: FABIÁN BILLINGS Department: 85 Room: Gender: Female Lard Maker: : 1945 Requested By: DENNYS LARA Order Number: [id number] Reading MD: Uli Way Measurements Intervals Brogue Rate: 51 P: 87 HI: 192 QRS: 40 QRSD: 91 T: 49 QT: 426 QTc: 396 Interpretive Statements SINUS BRADYCARDIA WITH SINUS ARRHYTHMIA Compared to ECG 04/04/2024 11:53:07 Sinus bradycardia is present us Dennys Lara MD ECG ORDERABLES Final Result Performing Organization Address City/[facility] Co de Phone Number [facility]) [facility] documented in this encounter Visit Diagnoses Diagnosis History of AR (myocardial infarction)- Primary Old myocardial infarction History of AR (myocardial infarction) Old myocardial infarction documented in this encounter Additional Health Concerns Assessment Noted Time PHQ-9 Depression Total Score: 0 09/24/19 25 6:57 PM CONE RUNNER documented as of this encounter Care Teams Narcotics And/Or Vice Detective Relationship Specialty Start Date End Date Annmarie Parada MD [address] [address] PCP - General INTERNAL MEDICINE 09/26/21 documented as of this encounter
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
--- OUTSIDE RECORDS SUMMARY | 2024-11-25 08:48 | XMS_ITS | Continuity of Care Document ---
Author Organization [facility] Address [address] [facility] utigil [place] [address] [place] [id number] Phone Care Team Providers Care Band Saw Operator Name Role Phone Tracy Álvarez OD Unavailable Unavailable Allergies, Adverse Reactions, Alerts Substance Reaction Status Criticality No Known Allergies Active No Inform ation Medications Medication Instructions Dosage Effective Dates (start - stop) Status Comments losartan 50 mg tablet take 1 tablet by o ral route every day 50 MG - Active metformin 500 mg tablet take 1 tablet by oral route 2 times every day with morning and evening meals 500 MG - Active tramadol 50 mg tablet take one tablet daily - Active Lyrica 150 mg capsule take 1 capsule by oral route 2 times every day 150 MG - Active lisinopril 20 mg tablet take 1 tablet by oral route every day 20 MG - Active metoprolol succinate ER 25 mg tablet,extended release 24 hr take 1 tablet by oral route every day 25 MG - Active Aspirin Low Dose 81 mg tablet,delayed release take 1 tablet (81MG) by oral route every day 81 MG - Active atorvastatin 80 mg tablet take 1 tablet (80MG) by oral route every day 80 MG - Active Procedures Procedure Date SCODI, Retina No Charge Optomap Fundus Photos Office/outpatient Visit, Est No Charge Optomap Fundus Photos SCODI, Retina Eye Exam & Treatment SCODI, Retina No Charge Optomap Fundus Photos 023 Office/outpatient Visit, Est Fundus Photography W/ Report Eye Exam & Treatment No Charge Refraction No Charge Optomap Fundus Photos 022 Eye Exam & Treatment Eye Exam & Treatment Post-op Follow-up Visit After Cataract Laser Surgery No Charge Refraction Office/outpatient Visit, Est No Charge Refraction No Charge Refraction Post-op Follow-up Visit After Cataract Laser Surgery No Charge Refraction No Charge Refraction Eye Exam & Treatment Post-op Follow-up Visit Post-op Follow-up Visit Remove Cataract, Insert Lens Post-op Follow-up Visit No Charge Refraction Post-op Follow-up Visit Remove Cataract, Insert Lens Office/outpatient Visit, Est No Charge Refraction IOLMaster IOLMaster Fundus Photography W/ Report Eye Exam & Treatment Eye Exam, New Patient Refraction Advance Directives Directive Yes / No Effective Date File Name Other Directive No N/A N/A WARNING:The information contained in this section is historical and is provided for information only and does not constitute a legal document or any assurance that the information is still accurate. Please verify the information with the cedillo of the legal document before using it for clinical purposes. Encounters Encounter Description Practice Location Reason(s) For Visit Diagnoses Date Provider Providers Copied on Encounter Office/outpa tient Visit, Est [facility], [address] [facility] [place], [place], [address], [place] tel:[phone] SEC [place] Professional Follow up visit (chief complaint) Stable hemispheric branch retinal vein occlusion (BRVO) of left eyeType 2 diabetes mellitus without complications Presence of intraocular lensCME (cystoid macular edema), left 4 Preeti OD Tracy. [address], [address], [place], [place], [address], [place]. tel:[phone] Referring Provider: Alfredo Romano, [address], [place], [address] . tel:[phone] [facility], [facility] [email or web address], [place], [place], [address], [place] [phone] SEC [facility] Professional diabetic eye exam (chief complaint) Presence of intraocular lensType 2 diabetes mellitus without complications Stable hemispheric branch retinal vein occlusion (BRVO) of left eyeVitreous degeneration, bilateralCME (cystoid macular edema), left 4 Preeti OD Tracy. [address], [address], [place], [place], [address], [place]. tel:[phone] Referring Provider: Alfredo Romano, [address], [place], [address] . tel:[phone] Office/outpa tient Visit, Est [facility], [facility] [email or web address], [place], [place], [address], [place] [phone] SEC [facility] Professional Follow up visit (chief complaint) Branch retinal vein occlusion of left eye with macular edema 3 Duarte Fuentes. [address], [address], [place], [place], [address], [place]. tel:[phone] Referring Provider: Alfredo Romano, [address], [place], [address] . tel:[phone] [facility], [facility] [email or web address], [place], [place], [address], [place] tel:[phone] SEC [place] Professional Diabetic eye exam (chief complaint) Bilateral artificial lens implantType 2 diabetes mellitus without complications Dry eye syndrome, leftHemispher ic branch retinal vein occlusion (BRVO) of left eye 3 Duarte Fuentes. [address], [address], [place], [place], [address], [place]. tel:[phone] Referring Provider: Alfredo Romano, [address], [place], [address] . tel:[phone] 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 [address], [address], [place], [place], [address], [place]. tel:[phone] Referring Provider: Alfredo Romano, [address], [place], [address] . tel:[phone] [facility], [address], [place], [place], [address], [place] tel:[phone] SEC [place] Professional No Information - 0 Rubi West. [address] [place] [address], [address] [facility], [place], [address], [place]. tel:[phone] [facility], [address], [place], [place], [address], [place] tel:[phone] SEC [place] Professional diabetic eye exam (chief complaint) Type 2 diabetes mellitus without complications Presence of intraocular lens 2 0-201 9 Rubi West. [facility], [address] [facility], [place], [address], [place]. tel:[phone] Referring Provider: Brett Crooks, [address] [place] [address] [facility], [place], [address]. tel:[phone] [facility], [address], [place], [place], [address], [place] tel:[phone] SEC Lani Rm No Information 9 Rubi OD Brett. [address] [facility], [address] [facility], [place], [address], [place]. tel:[phone] [facility], [address] [place] [address] [address], [place], [place], [address], [place] tel:[phone] [place] Professional 1 mo YAG PC PO (chief complaint) Encounter for examination following surgery 7 Emely Sánchez. [address], [place], [place], [address], [place]. tel:[phone] Referring Provider: Gonzalo Spears, [address], [place], [address] . tel:[phone] Office/outpa tient Visit, [facility], [address] [place] [address] [address], [place], [place], [address], [place] tel:[phone] [place] Professional Blurry/decr eased vision (chief complaint) No Information 7 Emely Sánchez. [address], [place], [place], [address], [place]. tel:[phone] Referring Provider: Gonzalo Spears, [address], [place], [address] . tel:[phone] [facility], [address] [place] [address] [address], [place], [place], [address], [place] [phone] [place] Professional 1 mo PO (chief complaint) No Information 6 Emely Sánchez. [address], [address] [place], [address], [place]. tel:[phone] Referring Provider: Gonzalo Spears, [address] [facility] [address], [place], [address] . tel:[phone] [facility], [address], [place], [place], [address], [place] tel:[phone] SEC [place] K[place] Professional Procedure (chief complaint) No Information Nov-0 9-201 6 Emely Sánchez. [address] [facility], [address] [place], [address], [place]. tel:[phone] Referring Provider: Gonzalo Spears, [address] [facility] [address], [place], [address] . tel:[phone] [facility], [address], [place], [place], [address], [place] tel:[phone] SEC [place] KRIST[place] Professional No Information Sep-3 0-201 6 Duarte Fuentes. [address] [facility], [address], [address], [place]. tel:[phone] [facility], [address], [place], [place], [address], [place] tel:[phone] SEC [place] K[place]ST[place] Professional diabetic eye exam (chief complaint) No Information Sep-2 7-201 6 Emely Sánchez. [address] [facility], [address], [address], [place]. tel:[phone] Referring Provider: Gonzalo Spears, [address] [facility] [address], [place], [address] . tel:[phone] [facility], [address], [place], [place], [address], [place] tel:[phone] [place] Professional 2 week post op OS (chief complaint) No Information Oct-2 9-201 5 Emely Sánchez. [address], [address], [place], [place], [address], . tel:[phone] Referring Provider: Gonzalo Spears, [address], [place], [address] . tel:[phone] [facility], [address] [address], [place], [place], [address], tel:[phone] [place] Professional 1 day post op (chief complaint) No Information Oct-1 6- 5 Duarte Fuentes. [address], [place], [place], [address], . tel:[phone] Referring Provider: Gonzalo Spears, [address], [place], [address] . tel:[phone] [facility], [address], [place], [place], [address], [place] tel:[phone] [facility] No Information Oct-1 5- 5 Hernán Kay. [address], [address], [place], [place], [address], [place]. tel:[phone] Referring Provider: Gonzalo Spears, [address], [place], [address] . tel:[phone] [facility], [address] [address], [place], [address], [place] tel:[phone] [place] Professional 2 week P/O in the right eye (chief complaint) No Information Oct-0 1-201 5 Emely Sánchez. [address], [address], [place], [address], [place]. tel:[phone] Referring Provider: Gonzalo Spears, [address], [place], [address] . tel:[phone] [facility], [address], [place], [place], [address], [place] tel:[phone] [place] Professional 1 day P/O OD (chief complaint) No Information 5 Duarte Fuentes. [address] [facility] [employer], [address], [place], [place], [address], [place]. tel:[phone] Referring Provider: Gonzalo Spears, [address] [facility], [place], [address] . tel:[phone] [facility], [address], [place], [place], [address], [place] [phone] [facility] No Information 5 Hernán Kay. [address], [address], [place], [place], [address], [place]. tel:[phone] Referring Provider: Gonzalo Spears, [address] [facility] [address], [place], [address] . tel:[phone] Office/outpa tient Visit, [facility], [address], [place], [place], [address], [place] [phone] [place] Professional Cataract Evaluation (chief complaint) No Information 5 Hernán Kay. [address], [address], [place], [place], [address], [place]. tel:[phone] Referring Provider: Gonzalo Spears, [address] [facility] [address], [place], [address] . tel:[phone] [facility], [address], [place], [place], [address], [place] [phone] SEC [place] Professional Diabetic eye exam (chief complaint) No Information 8 5 Emely Sánchez. [address] [facility], [address], [place], [place], [address], . tel:[phone] Referring Provider: Gonzalo Spears, [address] [facility] [address], [place], [address] . tel:[phone] [facility] [email or web address] [facility], [address] [address], [place], [place], [address], tel:[phone] SEC [place] [employer] No Information 5 Hernán Rahul. [facility] [address], [address], [place], [place], [address], . tel:[phone] [employer] [facility], [address] [address], [place], [place], [address], [phone] SEC [place] Professional No Information 3 Emely Sánchez. [address] [facility], [address], [place], [address], . tel:[phone] Referring Provider: Gonzalo Spears, [address] [facility] [address], [place], [address] . tel:[phone] [employer] [address] [employer] [facility], [facility] [address], [place], [place], [address], [phone] SEC [place] [employer] No Information 3 Hernán Rahul. [facility] [address], [address], [place], [place], [address], . tel:[phone] Family History Family Member Type Diagnosis Age At Onset Multiple Problem (finding) Diabetes mellitus Payers Payer name Insurance type Covered alliance party ID Authoriza tion(s) [employer] Mdcr Gold Adv Prime CI [id number] Social History Type Description Quantity Date Captured Comments Alcohol Use Details 1 drink weekly Caffeine Use Details coffee 24 oz per day Tobacco Use Status Current non-smoker Smoking Status Never smoker Non-Smoking Tobacco Use Details : No Details Available : No Details Available Sex Female Chief Complaint And Reason For Visit From encounter dated '03/08/2024 10:15'. Follow up visit (chief complaint). Description: The 78 year old patient presents for evaluation of 6 month BRVO Follow up visit in the right eye and left eye. Pt states she has been using her Amsler grid almost daily and has noticed no change. Pt denies any new floaters or flashes. Pt denies changeto vision. Reason For Referral Reason For Referral No Information Plan Of Treatment Date Type Action Status Appointment Emmy Billings BOOKED Patient Education Learning About Retinal Vein Occlusion completed Patient Education Learning About Vitreous Detachment completed Patient Education Type 2 Diabetes: Care I nstructions completed Patient Education Type 2 Diabetes: Care I nstructions completed History Of Present Illness Encounter Date Complaint History Of Prese nt Illness Follow up visit The 78 year old patient presents for evaluation of 6 month BRVO Follow up visit in the right eye and left eye. Pt states she has been using her Amsler grid almost daily and has noticed no change. Pt denies any new floaters or flashes. Pt denies change to vision. diabetic eye exam The 78 year ol d patient presents for a complete Type II diabetic exam ou. Patient is pseudo ou with yag caps ou. Patient has hx of BRVO OS. Patient doesn't check BS but last A1C was 6.8. PCP treats DM Patient denies any changes in vision ou. Patient wears reading glasses. Follow up visit The 77 year old patient presents for a 3 month follow up. Patient has hx of BRVO OS. Patient denies any changes in vision since last visit. Patient is pseudo ou with yag caps ou. Patient is a Type II diabetic and did not check BS today. Diabetic eye exam The 77 year ol d patient presents for evaluation of Diabetic eye exam in the right eye and left eye. Patient denies any changes with her VA. Patient uses an ART prn OU. Patient is a Diab, doesn't check BS, a1c 6.8, and PCP treats her diab. Complete Exam The 76 year old female presents for evaluation of Complete Exam in the right eye and left eye. Hx of PCIOL OU and YAG PC OU. Pt is NIDDM II x 6 yrs, followed by PCP, pt hasn't checked BS but A1C was 6.7 in June. Pt reports she doesn't use any gtts, OU. Pt reports she has noticed she can't see the writing that scrolls on the bottom of the TV, OU, x 6+ mos. diabetic eye exam The 73 year ol d female presents for a complete Type II diabetic eye exam ou. Patient is pseudo ou with yag caps ou. Patient doesn't check BS. Patient wears OTC reading glasses. Patient denies any changes in vision ou. 1 mo YAG PC PO The 71 year old female presents for 1 mo YAG PC PO in the right eye. Hx of PCIOL OU and YAG PC OU. Pt is NIDDM II. Pt reports VA is much better since YAG, OD. Pt reports no pain, irriation, or discomfort today OU. Pt denies any flashes of light. Pt reports she doesn't use any gtts, OU. Blurry/decreased vision The 71 y ear old female presents for a YAG PC OD evaluation. Patient c/o blurry vision OD and c/o a film over OD. Patient c/o doesn't like to drive at night due to glare. 1 mo PO The 70 year old female presents for 1 mo PO after Yag PC in the left eye. Pt states no VA, pain or discomfort complaints OU. Procedure The 70 year old female presents for a YAG PC OS. Patient c/o harder to read small print. diabetic eye exam The 70 year ol d female presents for diabetic eye exam. Patient has hx of PCIOL OU, NIDDMII. She states that she does not check BS daily but last AIC was 6.3. Patient states that she is having difficulty with near VA OU. Patient denies flashes and floaters OU. She denies pain, discomfort or irritation OU. 2 week post op OS The 69 year ol d female presents for evaluation of 2 week post op in the OS. (phaco w/IOL) Patient states she is doing great, VA is wonderful. Patient occ sees an image of rays on the side of her VA. Patient still using Pred as I directed. 1 day post op The 69 year old female presents for 1 day post op Phaco w/IOL OS. Patient has no complaints. Post op instructions discussed with patient. Patient will start Pred QID OS, Poly QID OS and Diclofenac TID OS today. 2 week P/O in the right eye The 69 year old female presents for a 2 week P/O in the right eye. Patient states VA is really good with OD, patient scheduled to have OS done. C/O with OS is difficulties doing very fine close up work and some trouble seeing road signs at a distance. 1 day P/O OD The 69 year old female presents for a 1 day P/O in the right eye. (phaco w/IOL) Patient states she is doing good no problems with the right eye. Patient came in with gtts Poly, Pred, and Dic to use as directed. Cataract Evaluation The 69 year old female presents for Cataract Evaluation. Patient Hx Type II Diabetes and Moderate Nuclear Sclerosis OU. Patient reports OU vision has gradually been getting more cloudy. Patient is having difficult seeing the words on the television and has to use a magnifying glass to thread a needle. Patient has also recently been bothered by glare while driving at night. Diabetic eye exam The 69 year ol d female presents for Complete Exam. 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 Pt recently has tearing that she thinks is from pollen. Pt has problems with road signs and threading a needle. Pt has not checked DM BS recently. Functional Status Date Functional Assessmen t No Information Instructions Date Instruction Additional Infor lillian Impression/Plan Impression/Plan Impression/Plan Impression/Plan Impression/Plan Impression/Plan Follow up - Return in 1 year Impression/Plan - Go od result after YAG, will continue to monitor pt. Return to clinic in 1 year for complete DM exam or sooner with any problems. Presence of intraocu lar lens - Educational material given Related to Presence of intraocular lens Follow up - Return i n 1 month with Gonzalo Han M.D. for post op exam. Impression/Plan - Di scussed diagnosis in detail with patient. IOL's in good position, pcf OD, open OS. Patient tolerated procedure well, open pc. Return to clinic in 1 month for post op visit or sooner with any problems. Follow up - Return i n 1 year with Gonzalo Han M.D. for Complete Exam. Impression/Plan - Go od result after YAG, will continue to monitor pt. Return to clinic in 1 year for complete diabetic exam or sooner with any problems. After-cataract of le ft eye with vision obscured - Educational material given Related to After-cataract of left eye with vision obscured Impression/Plan - Pr oceed with Yag PC as scheduled. Patient tolerated procedure well. Return to clinic in 1 months for post op visit or sooner with any problems. Follow up - Return i n 1 month with Gonzalo Han M.D. for post op exam. Impression/Plan - IO L's in good position. Discussed PCF formation with pt, discussed YAG PC for treatment. R/a/b explained. Pt understands and will schedule. Diabetes type II: no background retinopathy, no signs of neovascularization noted. Discussed ocular and systemic benefits of blood sugar control. DM letter sent to Dr Hernandez. Schedule Yag PC OS Follow up - Schedule Yag PC OS Bilateral artificial lens implant - Educational material given Related to Bilateral artificial lens implant Impression/Plan - Go od post op results after CE OS. Taper post op drops. Return in 6 months for IOL check or sooner with any problems. Related to Encounter for examination following surgery Follow up - Return i n 6 months with Gonzalo Han M.D. for IOL Check. Related to Encounter for examination following surgery Impression/Plan - On e day s/p phaco with IOL OS. IOL in good position. Medication instillation and post op instructions reviewed. Pt understands shield use. Pt will call the office immediately with any symptoms of flashes and floaters. RTC as scheduled or sooner if problems. Follow up - RTC as scheduled Proceed with CE OS Related to Po stoperative visit Impression/Plan - Go od post op results after CE OD, Continue to taper post op drops. Proceed with CE OS Related to Postoperative visit Follow up - Proceed with CE OS R elated to Postoperative visit Follow up - RTC as s cheduled or sooner if problems. Impression/Plan - On e day s/p phaco with IOL OD. IOL in good position. Trace edema; 2+ cell. Medication instillation and post op instructions reviewed. Pt understands shield use. RTC as scheduled or sooner if problems. - Cataracts account for the patient's complaints. Discussed all risks, benefits, procedures and recovery. Patient understands changing glasses will not improve vision. Patient desires to have surgery, recommend phacoemulsification with intraocular lens. No diabetic changes in either eye. Rec good blood sugar control. Discussed lifestyle IOLs and the tendency for these to be inaccurate when her blood sugars fluctuate. 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 Related to SENILE NUCLEAR CATARACT - Diabetes, no backg round retinopathy, no signs of neovascularization noted. Discussed ocular and systemic benefits of blood sugar control. DM letter sent to Dr Hernandez. Cataracts account for the patient's complaints. Discussed all risks, benefits, procedures and recovery. Patient understands changing glasses will not improve vision. Patient desires to have surgery, schedule cataract evaluation. Related to See list of assessments above - schedule cataract evaluation R elated to See list of assessments above SENILE NUCLEAR CATAR ACT - Educational material given Related to SENILE NUCLEAR CATARACT - 1yr Related to Diabe elisa Mellitus Type 2, Uncomplicated no comber setter - Educational materials provided to patient.dm letter Related to Diabetes Mellitus Type 2, Uncomplicated early nsc ou - observation Relat ed to SENILE NUCLEAR CATARACT Assessments Type Assessment Date assessment Stable hemispheric b ranch retinal vein occlusion (BRVO) of left eye assessment Type 2 diabetes mellitus without complications assessment Presence of intraocular lens Feb assessment CME (cystoid macular edema), lef t Patient Care Teams Name Effective Dates (start - stop) Status Members No Information
--- OUTSIDE RECORDS SUMMARY | 2024-11-25 08:48 | XMS_ITS | Encounter Summary ---
Author Organization [facility] Address [facility] [place] [address] Care Team Providers Care Production Cost Estimator Name Role Phone Annmarie Parada MD Primary Care Provider [phone] Encounter Details Date Type Department Care Team (Late st Contact Info) Description 02/22/2024 Zivity Message Enc [address] [place] [address] [place], [facility] Provider lab results Social History Tobacco Use Types Packs/Day Years Used Date Smoking Tobacco: Never Smokeless Tobacco: Never Comments:counseled by Dr Doris owens Alcohol Use Standard Drinks/Week Comments Yes 1 (1 standard drink = 0.6 oz pur e alcohol) weekly PHQ-2 Answer Date Recorded Patient Health Questionnaire-2 Score 0 02/15/2024 Comments No Sex and Gender Information Value Date Recorded Sex Assigned at Female 09/23/2024 11:35 AM OPEN HEARTH STOCKYARD SUPERVISOR Legal Sex Female 1:27 PM CDT Gender Identity Female 09/23/2024 11:35 AM OPEN HEARTH STOCKYARD SUPERVISOR Sexual Orientation Straight 09/23/2024 11 :35 AM OPEN HEARTH STOCKYARD SUPERVISOR documented as of this encounter Plan of Treatment Upcoming Encounters Date Type Department Care Team (Late st Contact Info) Description 04/07/2025 9:00 AM CDT Office Visit [address] [place] [address] Annmarie Parada MD [address] [address] 06/19/2025 11:45 AM OPEN HEARTH STOCKYARD SUPERVISOR Office Visit [facility] [address] [address] Slim Florence MD Three [facility], [address] [place] [address] documented as of this encounter Visit Diagnoses Not on filedocumented in this encounter Additional Health Concerns Assessment Noted Time PHQ-9 Depression Total Score: 0 02/15/20 24 6:18 PM CDT documented as of this encounter Care Teams Production Cost Estimator Relationship Specialty Start Date End Date Annmarie Parada MD [address] [place] [address] PCP - General INTERNAL MEDICINE 09/26/21 documented as of this encounter
--- OUTSIDE RECORDS SUMMARY | 2024-11-25 08:48 | XMS_ITS | Encounter Summary ---
Author Organization [facility] Address [facility] [place] [address] Care Team Providers Care Steel Loader Name Role Phone Annmarie Parada MD Primary Care Provider [phone] Encounter Details Date Type Department Care Team (Late st Contact Info) Description 02/18/2024 Plyfe Message Enc [address] [place] [address] [facility] Provider results Social History Tobacco Use Types Packs/Day [...] Sex Assigned at Female 09/23/2024 11:35 AM API ARCHITECT Legal Sex Female 1:27 PM CDT Gender Identity Female 09/23/2024 11:35 AM API ARCHITECT Sexual Orientation Straight 09/23/2024 11 :35 AM API ARCHITECT documented as of this encounter Plan of Treatment Upcoming Encounters Date Type Department Care Team (Late st Contact Info) Description 04/07/2025 9:00 AM CDT Office Visit [address] [place] [address] Annmarie Parada MD [address] [address] 06/19/2025 11:45 AM API ARCHITECT Office Visit [facility] [address] [address] Slim Florence MD Three [facility], [address] [place] [address] documented as of this encounter Visit Diagnoses Not on filedocumented in this encounter Additional Health Concerns Assessment Noted Time PHQ-9 Depression Total Score: 0 02/15/20 24 6:18 PM CDT documented as of this encounter Care Teams Steel Loader Relationship Specialty Start Date End Date Annmarie Parada MD [address] [address] PCP - General INTERNAL MEDICINE 09/26/21 documented as of this encounter
== END 2024-11-24 08:45 | disposition home or self-care (01) ==
PROVIDERS: PCP Internal Medicine; Visit Provider Plastic Surgery
DX: C44.712 Basal cell carcinoma of skin of right lower limb, including hip (principal)
CPT/HCPCS: 88305

== ENCOUNTER 2025-02-06 11:15 | Inpatient (IN) | payer MEDICARE, SELFPAY ==
[2025-02-06] VITALS (33 sets, daily range): BP systolic 93–151; BP diastolic 49–100; PULSE 57–102; RESP 13–31; TEMP 35.6–36.9; O2SAT 86–100; BMI 24.7
--- NOTE | ~2025-02-06 | XR_ITS ---
EXAMINATION: XR chest 1V portable 02/06/2025 12:36 INDICATION: Shortness of breath and leg weakness. PROCEDURE: AP portable chest COMPARISON: 04/30/2011 FINDINGS: The lungs are clear. The cardiomediastinal silhouette is within normal limits. There are no pleural effusions. There is no pneumothorax suspected. There are degenerative changes of the isaiah ulders with multiple corticated ossific densities inferior to the left glenohumeral joint, consistent with synovial osteochondromatosis. IMPRESSION: 1: NO ACUTE CARDIOPULMONARY DISEASE. Reviewed, dictated and finalized at location A.
--- NOTE | ~2025-02-06 | US_ITS ---
EXAMINATION:US venous doppler LE BI INDICATION:Bilateral lower extremity edema TECHNIQUE: Multiple grayscale, color flow and Doppler images of the right and left lower extremity de ep venous systems were obtained and reviewed. COMPARISON:No prior studies for comparison. FINDINGS: The common femoral, superficial femoral and popliteal veins demonstrate normal respiratory variation, augmentation and compressibility. Color flow is also seen within the posterior tibial, pe roneal, greater saphenous and profunda veins. IMPRESSION: 1: No lower extremity deep venous thrombosis. Reviewed, dictated and finalized at location A.
--- OUTSIDE RECORDS SUMMARY | 2025-02-06 11:17 | XMS_ITS | Encounter Summary ---
Author Organization [facility] Address [facility] [place] [address] Care Team Providers Care Pens And Pencils Dipper Name Role Phone Annmarie Parada MD Primary Care Provider [phone] Encounter Details Date Type Department Care Team (Late st Contact Info) Description 12/23/2023 Skyscanner Message Enc [facility] - [address] [place] [address] [place] [facility] Provider 6-Month Follow Up Social History Tobacco [...] Sex Assigned at Female 09/23/2024 11:35 AM CHEMIST INTERNSHIP Legal Sex Female 1:27 PM CDT Gender Identity Female 09/23/2024 11:35 AM CHEMIST INTERNSHIP Sexual Orientation Straight 09/23/2024 11 :35 AM CHEMIST INTERNSHIP documented as of this encounter Plan of Treatment Upcoming Encounters Date Type Department Care Team (Late st Contact Info) Description 04/07/2025 9:00 AM CDT Office Visit [facility] - [place] [address] [address] [place] [address] Annmarie Parada MD Count includes the [facility] [address] 06/19/2025 11:45 AM CHEMIST INTERNSHIP Office Visit [facility] [address] Slim Florence MD [facility], [address] [place] [address] documented as of this encounter Visit Diagnoses Not on filedocumented in this encounter Additional Health Concerns Assessment Noted Time PHQ-9 Depression Total Score: 0 09/27/19 22 8:56 AM CHEMIST INTERNSHIP documented as of this encounter Care Teams Pens And Pencils Dipper Relationship Specialty Start Date End Date Annmarie Parada MD [address] [place] [address] PCP - General INTERNAL MEDICINE 09/26/21 documented as of this encounter
--- OUTSIDE RECORDS SUMMARY | 2025-02-06 11:17 | XMS_ITS | Encounter Summary ---
Author Organization [facility] Address [facility] [place] [address] Care Team Providers Care Toucher Up Name Role Phone Annmarie Parada MD Primary Care Provider [phone] Encounter Details Date Type Department Care Team (Late st Contact Info) Description 01/12/2025 Recoup [address] [address] [place], [facility] Provider Labs Social History Tobacco Use Types Packs/Day Years [...] Sex Assigned at Female 09/23/2024 11:35 AM YARN SORTER Legal Sex Female 1:27 PM CDT Gender Identity Female 09/23/2024 11:35 AM YARN SORTER Sexual Orientation Straight 09/23/2024 11 :35 AM YARN SORTER documented as of this encounter Plan of Treatment Upcoming Encounters Date Type Department Care Team (Late st Contact Info) Description 04/07/2025 9:00 AM CDT Office Visit [facility] Care [address] [place] [address]32 Annmarie Parada MD [address] [address] 06/19/2025 11:45 AM YARN SORTER Office Visit [facility] [address] Slim Florence MD [facility], [address] [place] [address] documented as of this encounter Visit Diagnoses Not on filedocumented in this encounter Additional Health Concerns Assessment Noted Time PHQ-9 Depression Total Score: 0 09/24/19 25 6:57 PM YARN SORTER documented as of this encounter Care Teams Toucher Up Relationship Specialty Start Date End Date Annmarie Parada MD [address] [place] [address] PCP - General INTERNAL MEDICINE 09/26/21 documented as of this encounter
--- OUTSIDE RECORDS SUMMARY | 2025-02-06 11:17 | XMS_ITS | Encounter Summary ---
Author Organization [facility] Address [address] [place] [address] Phone Care Team Providers Care Stitch Separator Name Role Phone Jose Maria Hernandez MD [...] on file Legal Sex Female 11:31 PM CANCER PROGRAM CONSULTANT Gender Identity Female 11/10/2019 9:28 AM CDT [...] who may have a more legible copy. ER PROGRAM CONSULTANT * Tara Wallace RN - 07/10/2020 11:59 PM CST 2/: spoke w/ pt informing her. She will discuss w/ PCP. ER PROGRAM CONSULTANT documented in this encounter Plan of Treatment Not on file documented as of this encounter Procedures Procedure Name Priority Date/Time Associated Diagnosis Comments SCAN - LABS 07/10/2020 documented in this encounter Results * SCAN - LABS (07/10/2020) us Provider Scanning Final Result documented in this encounter Visit Diagnoses Not on filedocumented in this encounter Care Teams Stitch Separator Relationship Specialty Start Date End Date Jose Maria Hernandez MD [address] [place] [address] PCP - General 11/10/16 documented as of this encounter
--- OUTSIDE RECORDS SUMMARY | 2025-02-06 11:18 | XMS_ITS | Referral Summary ---
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 02/16/2020 Sensorineural hearing [...] on file Legal Sex Female 11:31 PM CARBURETOR SPECIALIST Gender Identity Female 11/10/2019 9:28 AM CDT Sexual Orientation Not on file Last Filed Vital Signs Vital Sign Reading Time Taken Comments Blood Pressure 131/68 07/17/2020 11:24 AM CARBURETOR SPECIALIST Pulse 73 07/17/2020 11:24 AM CARBURETOR SPECIALIST Temperature 36.3 C (97.3 F) 02/16/2020 9:49 AM CDT Respiratory Rate - - Oxygen Saturation 100% 02/16/2020 9:49 AM CDT Inhaled Oxygen Concentration - - Weight 76.7 kg (169 lb) 07/17/2020 11:24 AM CARBURETOR SPECIALIST Height 180.3 cm (5' 11) 07/17/2020 11:24 AM CARBURETOR SPECIALIST Body Mass Index 23.57 07/17/2020 11:24 AM CARBURETOR SPECIALIST Plan of Treatment Not on file Insurance * Guarantor: Fabián Billings Account Type Relation to Patient Date of Phone Billing Address Personal/Family Self 1945 [id number] MEDICARE ADVANTAGE [facility] MEDICARE ADVANTAGE Care Teams Pay Station Collector Relationship Specialty Start Date End Date Jose Maria Hernandez MD [address] [place] [address] PCP - General 11/10/16
--- OUTSIDE RECORDS SUMMARY | 2025-02-06 11:18 | XMS_ITS | Encounter Summary ---
Author Organization [facility] Address [facility] [place] [address] Care Team Providers Care Health Inspector Food Name Role Phone Annmarie Parada MD Primary Care Provider [phone] Madison Oakley RN Unavailable [phone] Encounter Details Date Type Department Care Team (Late st Contact Info) Description 10/30/2022 Prep for Procedure [facility] [address] [place] [address] Dennys Lara MD [address] [place] [address] Social History Tobacco Use Types Packs/Day [...] Sex Assigned at Female 09/23/2024 11:35 AM PAN DUMPER Legal Sex Female 1:27 PM CDT Gender Identity Female 09/23/2024 11:35 AM PAN DUMPER Sexual Orientation Straight 09/23/2024 11 :35 AM PAN DUMPER COVID-19 Exposure Response Date Recorded In the last 10 days, have yo u been in contact with someone who was confirmed or suspected to have Coronavirus/COVID-19? No / Unsure 10/30/2022 2:57 PM CDT documented as of this encounter Plan of Treatment Upcoming Encounters Date Type Department Care Team (Late st Contact Info) Description 04/07/2025 9:00 AM CDT Office Visit [facility] - [address] [place] [address] Annmarie Parada MD [address] [facility] 157 [place], [place] [address] 06/19/2025 11:45 AM PAN DUMPER Office Visit [facility] [facility] [address] [place] [address] [address] [place], [place] [address] Slim Florence MD [facility], [address] [place] [address] documented as of this encounter Results * ECG 12-Lead (10/30/2022 3:19 PM CDT) 10/30/2022 3:19 PM CDT Narrative [facility] ([facility] RAD - 10/30/2022 9:01 PM CDT [facility] Test Date: 2022-10-30 Pat Name: FABIÁN BILLINGS Department: 85 Room: Gender: Female Radio Division Lieutenant: : 1945 Requested By: DENNYS LARA Order Number: [id number] Jeff BALTAZAR: Blake Langston Measurements Intervals [place] Rate: 66 P: 47 VT: 113 QRS: 34 QRSD: 97 T: 28 QT: 410 QTc: 432 Interpretive Statements SINUS RHYTHM WITH SHORT VT INTERVAL Compared to ECG 06/03/2021 13:16:44 Short VT interval now present Sinus arrhythmia no longer present Procedure Note Blake Langston MD - 10/30/2022 [facility] Test Date: 2022-10-30 Pat Name: FABIÁN BILLINGS Department: 85 Room: Gender: Female Radio Division Lieutenant: : 1945 Requested By: DENNYS LARA Order Number: [id number] Reading MD: Blake Langston Measurements Intervals [place] Rate: 66 P: 47 VT: 113 QRS: 34 QRSD: 97 T: 28 QT: 410 QTc: 432 Interpretive Statements SINUS RHYTHM WITH SHORT VT INTERVAL Compared to ECG 06/03/2021 13:16:44 Short VT interval now present Sinus arrhythmia no longer present us Dennys Lara MD ECG ORDERABLES Final Result [facility] documented in this encounter Visit Diagnoses Diagnosis Preop testing- Primary Preoperative examination, unspecified Preop testing Preoperative examination, unspecified documented in this encounter Additional Health Concerns Assessment Noted Time PHQ-9 Depression Total Score: 0 09/27/19 22 8:56 AM PAN DUMPER documented as of this encounter Care Teams Health Inspector Food Relationship Specialty Start Date End Date Annmarie Parada MD [address] [facility] [address] [place] [address] PCP - General INTERNAL MEDICINE 09/26/21 Madison Oakley, RN [address] [place] [address] Surfacing Technician (Ambulatory) REGISTERED NURSE 03/05/23 documented as of this encounter
--- OUTSIDE RECORDS SUMMARY | 2025-02-06 11:18 | XMS_ITS | Encounter Summary ---
Author Organization [facility] Address [facility] [place] [address] Care Team Providers Care Turf Manager Name Role Phone Annmarie Parada MD Primary Care Provider [phone] Madsion Oakley RN Unavailable [phone] Encounter Details Date Type Department Care Team (Late st Contact Info) Description 01/10/2022 Eventioz Message Enc [facility] Multispecialty Care - [address] [place] [address] [employer], [facility] Provider Test Result Social History Tobacco Use [...] Sex Assigned at Female 09/23/2024 11:35 AM WOOD ROUTER Legal Sex Female 1:27 PM CDT Gender Identity Female 09/23/2024 11:35 AM WOOD ROUTER Sexual Orientation Straight 09/23/2024 11 :35 AM WOOD ROUTER COVID-19 Exposure Response Date Recorded In the last 10 days, have yo u been in contact with someone who was confirmed or suspected to have Coronavirus/COVID-19? No / Unsure 01/06/2022 9:52 AM CDT documented as of this encounter Plan of Treatment Upcoming Encounters Date Type Department Care Team (Late st Contact Info) Description 04/07/2025 9:00 AM CDT Office Visit [facility] Multispecialty Care - [place] [address] [address] [place] [address] Annmarie Parada MD [address] [place] [address] 06/19/2025 11:45 AM WOOD ROUTER Office Visit [facility] [address] Slim Florence MD [facility], [address] [place] [address] documented as of this encounter Visit Diagnoses Not on filedocumented in this encounter Additional Health Concerns Assessment Noted Time PHQ-9 Depression Total Score: 0 09/27/19 22 8:56 AM WOOD ROUTER documented as of this encounter Care Teams Turf Manager Relationship Specialty Start Date End Date Annmarie Parada MD [address] [place] [address] PCP - General INTERNAL MEDICINE 09/26/21 Madison Oakley, RN [address] [place] [address] Technical Advisor (Ambulatory) REGISTERED NURSE 03/05/23 documented as of this encounter
--- OUTSIDE RECORDS SUMMARY | 2025-02-06 11:18 | XMS_ITS | Continuity of Care Document ---
Author Organization [employer] [facility] Address [address] [facility] [address] [place] [address] Phone Care Team Providers Care Hotel Controller Name Role Phone Preeti BROWNING Tracy Unavailable Unavailable Allergies, Adverse Reactions, Alerts Substance Reaction Status Criticality No Known Allergies Active No Inform ation Medications Medication Instructions Dosage Effective Dates (start - stop) Status Comments tramadol 50 mg tablet take one tablet daily - Active losartan 50 mg tablet take 1 tablet by o ral route every day 50 MG - Active Lyrica 150 mg capsule take 1 capsule by oral route 2 times every day 150 MG - Active glipizide 5 mg tablet take 1 tablet by o ral route 2 times every day before meals 5 MG - Active lisinopril 20 mg tablet take 1 tablet by oral route every day 20 MG - Active metoprolol succinate ER 25 mg tablet,extended release 24 hr take 1 tablet by oral route every day 25 MG - Active atorvastatin 80 mg tablet take 1 tablet (80MG) by oral route every day 80 MG - Active Aspirin Low Dose 81 mg tablet,delayed release take 1 tablet (81MG) by oral route every day 81 MG - Active Procedures Procedure Date SCODI, Retina No Charge Optomap Fundus Photos 025 Eye Exam & Treatment SCODI, Retina No Charge Optomap Fundus Photos 024 Office/outpatient Visit, Est No Charge Optomap Fundus Photos 024 SCODI, Retina Eye Exam & Treatment SCODI, [...] Treatment Post-op Follow-up Visit Post-op Follow-up Visit Apr- Remove Cataract, Insert Lens Post-op Follow-up Visit No Charge Refraction Post-op Follow-up Visit Remove Cataract, Insert Lens Office/outpatient Visit, Est No Charge Refraction IOLMaster IOLMaster Fundus Photography W/ Report Eye Exam & Treatment Eye Exam, New Patient Refraction Advance Directives Directive Yes / No Effective Date File Name No Information Encounters Encounter Description Practice Location Reason(s) For Visit Diagnoses Date Provider Providers Copied on Encounter [facility], [address], [place], [place], [address], [place] tel:[phone] SEC Gorge [place] Professional diabetic eye exam (chief complaint) Stable hemispheric branch retinal vein occlusion (BRVO) of left eyeType 2 diabetes mellitus without complications CME (cystoid macular edema), leftBilateral artificial lens implantVitreo us degeneration, bilateral 5 Preeti OD Tracy. [facility] [employer], [address], [place], [place], [address], [place]. tel:[phone] Referring Provider: Alfredo Romano, [address] [facility] [address], [place], [address] . tel:[phone] Office/outpa tient Visit, [facility], [address] [place], [place] [address], [place], [place], [address], [place] tel:[phone] SEC [place] Professional Follow up visit (chief complaint) Stable hemispheric branch retinal vein occlusion (BRVO) of left eyeType 2 diabetes mellitus without complications Presence of intraocular lensCME (cystoid macular edema), left 4 Preeti OD Tracy. [facility] [employer], [address], [place], [place], [address], [place]. tel:[phone] Referring Provider: Alfredo Romano, [address] [facility] [address], [place], [address] . tel:[phone] [facility], [facility] [address], [place], [place], [address], [place] tel:[phone] [place] Professional diabetic eye exam (chief complaint) Presence of intraocular lensType 2 diabetes mellitus without complications Stable hemispheric branch retinal vein occlusion (BRVO) of left eyeVitreous degeneration, bilateralCME (cystoid macular edema), left 4 Preeti OD Tracy. [facility] [employer], [address], [place], [place], [address], [place]. tel:[phone] Referring Provider: Alfredo Romano, [address] [facility] [address], [place], [address] . tel:[phone] Office/outpa tient Visit, [facility], [facility] [address], [place], [place], [address], [place] tel:[phone] [place] Professional Follow up visit (chief complaint) Branch retinal vein occlusion of left eye with macular edema 3 Duarte Fuentes. [address], [place], [place], [address], [place]. tel:[phone] Referring Provider: Alfredo Romano, [address], [place], [address] . tel:[phone] [facility], [address] [place] [address] [address], [place], [place], [address], [place] tel:[phone] [place] Professional Diabetic eye exam (chief complaint) Bilateral artificial lens implantType 2 diabetes mellitus without complications Dry eye syndrome, leftHemispher ic branch retinal vein occlusion (BRVO) of left eye 3 Duarte Fuentes. [address], [place], [place], [address], [place]. tel:[phone] Referring Provider: Alfredo Romano, [address], [place], [address] . tel:[phone] [facility], [address] [place] [address] [address], [place], [place], [address], [place] tel:[phone] [place] Professional Complete Exam (chief complaint) Presence of intraocular lensType 2 diabetes mellitus without complications Dry eye syndrome of left lacrimal gland 2 Duarte Fuentes. [address], [place], [place], [address], [place]. tel:[phone] Referring Provider: Alfredo Romano, [address], [place], [address] . tel:[phone] [facility], [address] [place] [address] [address], [place], [place], [address], [place] tel:[phone] SEC Gorge [place] Professional No Information 0 Rubi West. [address] [facility] [facility], [place], [address], [place]. tel:[phone] [facility], [address], [place], [place], [address], [place] tel:[phone] SEC Gorge [place] Professional diabetic eye exam (chief complaint) Type 2 diabetes mellitus without complications Presence of intraocular lens 9 Rubi OD Brett. [address] [facility], [address] [place] [address], [place], [address], [place]. tel:[phone] Referring Provider: Brett Venegas OD R, [address] [place] [address], [address]. tel:[phone] [facility], [address] [place] [address] [address], [place], [place], [address], [place] [phone] SEC Lani Rm No Information 9 Rubi OD Brett. [address] [place] [address], [address] [place] [address], [place], [address], [place]. tel:[phone] [facility], [address], [place], [place], [address], [place] tel:[phone] SEC Gorge [place] Professional 1 mo YAG PC PO (chief complaint) Encounter for examination following surgery 7 Emely Sánchez. [address], [place], [place], [address], [place]. tel:[phone] Referring Provider: Gonzalo Spears, [address], [place], [address] . tel:[phone] Office/outpa tient Visit, Est [facility], [address], [place], [place], [address], [place] tel:[phone] [place] Professional Blurry/decr eased vision (chief complaint) No Information 7 Emely Sánchez. [address] [facility], [address] [place], [address], . tel:[phone] Referring Provider: Gonzalo Spears, [address] [facility] [address], [place], [address] . tel:[phone] [facility], [address], [place], [place], [address], tel:[phone] [place] Professional 1 mo PO (chief complaint) No Information Dec-0 9-201 6 Emely Sánchez. [address] [facility], [address] [place], [address], . tel:[phone] Referring Provider: Gonzalo Spears, [address] [facility] [place], [address] . tel:[phone] [facility], [address], [place], [place], [address], tel:[phone] [place] Professional Procedure (chief complaint) No Information Nov-0 9-201 6 Emely Sánchez. [address] [facility], [address] [place], [address], . tel:[phone] Referring Provider: Gonzalo Spears, [address] [facility] [place], [address] . tel:[phone] [facility], [address], [place], [place], [address], [place] tel:[phone] [place] Professional No Information Sep-3 0-201 6 Duarte Fuentes. [address] [facility], [address] [place], [address], . tel:[phone] [facility], [address], [place], [place], [address], [place] tel:[phone] [place] Professional diabetic eye exam (chief complaint) No Information Mar- 7-201 6 Xavinedra Sánchez. [address], [address], [place], [place], [address], [place]. tel:[phone] Referring Provider: Gonzalo Spears, [address] [facility] [address], [place], [address] . tel:[phone] [facility], [address], [place], [place], [address], [place] tel:[phone] SEC Gorge [place] Professional 2 week post op OS (chief complaint) No Information 5 Xavinedra Sánchez. [address] [facility], [address], [place], [place], [address], [place]. tel:[phone] Referring Provider: Gonzalo Spears, [address] [facility] [address], [place], [address] . tel:[phone] [facility], [address], [place], [place], [address], [place] [phone] SEC [place]orge [place] Professional 1 day post op (chief complaint) No Information 6-201 5 Duarte Fuentes. [address] [facility], [address], [place], [place], [address], [place]. tel:[phone] Referring Provider: Gonzalo Spears, [address] [facility] [address], [place], [address] . tel:[phone] [facility], [address], [place], [place], [address], [place] [phone] [facility] No Information Apr- 5-201 5 Hernán Kay. [address], [address], [place], [place], [address], [place]. tel:[phone] Referring Provider: Gonzalo Spears, [address], [place], [address] . tel:[phone] [facility], [address], [place], [place], [address], [place] tel:[phone] [place] Professional 2 week P/O in the right eye (chief complaint) No Information Apr-0 5 Emely Sánchez. [address], [address], [place], [place], [address], [place]. tel:[phone] Referring Provider: Gonzalo Spears, [address] [facility] [address], [place], [address] . tel:[phone] [facility], [address], [place], [place], [address], tel:[phone] [place] Professional 1 day P/O OD (chief complaint) No Information 5 Duarte Fuentes. [address], [place], [place], [address], . tel:[phone] Referring Provider: Gonzalo Spears, [address] [facility] [address], [place], [address] . tel:[phone] [facility], [address], [place], [place], [address], [place] tel:[phone] [facility] No Information 5 Hernán Kay. [address], [address], [place], [place], [address], [place]. tel:[phone] Referring Provider: Gonzalo Spears, [address] [facility] [address], [place], [address] . tel:[phone] Office/outpa tient Visit, Est [facility], [address], [place], [place], [address], [place] tel:[phone] SEC Gorge [place] Professional Cataract Evaluation (chief complaint) No Information 5 Hernán Kay. [address] [place], [place] [address] [employer], [address], [place], [place], [address], . tel:[phone] Referring Provider: Gonzalo Spears, [address] [facility] [address], [place], [address] . tel:[phone] [facility], [address] [place] [address] [address], [place], [place], [address], tel:[phone] SEC Gorge [place] Professional Diabetic eye exam (chief complaint) No Information 5 Emely Sánchez. [address] [facility], [address] [place], [address], . tel:[phone] Referring Provider: Gonzalo Spears, [address] [facility] [address], [place], [address] . tel:[phone] [facility], [address] [place] [address] [address], [place], [place], [address], tel:[phone] [place] [facility] No Information 5 [place] Rahul. [address] [place], [place] [address] [facility], [address], [place], [place], [address], . tel:[phone] [facility], [address] [place] [address] [address], [place], [place], [address], tel:[phone] SEC Gorge [place] Professional No Information 3 Emely Sánchez. [address] [facility], [address] [place], [address], . tel:[phone] Referring Provider: Gonzalo Spears, [address] [facility] [place], [address] . tel:[phone] [facility], [address] [place], [place] [address], [place], [place], [address], [place] tel:[phone] SEC Lani Rm No Information 3 Hernán Kay. [address] [facility] [address], [address], [place], [place], [address], [place]. tel:[phone] Family History Family Member Type Diagnosis Age At Onset Multiple Problem (finding) Diabetes mellitus Payers Payer name Insurance type Covered libertarian ID Authoriza tipita(s) [employer] Mdcr Gold Adv Prime CI [id number] Social History Type Description Quantity Date Captured Comments Alcohol Use Details 1 drink weekly Caffeine Use Details coffee 24 oz per day Tobacco Use Status Current non-smoker Smoking Status Never smoker Non-Smoking Tobacco Use Details : No Details Available : No Details Available Sex Female Chief Complaint And Reason For Visit From encounter dated '12/14/2024 13:30'. diabetic eye exam (chief complaint). Description: The 79 year old patient presents for a complete Type II diabetic exam ou. Patient is pseudo ou with yag caps ou. Patient has hx of BRVO OS. Patient states her last A1C was 7. PCP treats DM. Patient denies any changes in vision ou. Reason For Referral Reason For Referral No Information Plan Of Treatment Date Type Action Status Appointment Emmy Billings BOOKED Patient Education Learning About Vitreous Detachment completed Patient Education Learning About Retinal Vein Occlusion completed Patient Education Learning About Vitreous Detachment completed Patient Education Type 2 Diabetes: Care I nstructions completed Patient Education Type 2 Diabetes: Care I nstructions completed History Of Present Illness Encounter Date Complaint History Of Prese nt Illness diabetic eye exam The 79 year ol d patient presents for a complete Type II diabetic exam ou. Patient is pseudo ou with yag caps ou. Patient has hx of BRVO OS. Patient states her last A1C was 7. PCP treats DM. Patient denies any changes in vision ou. Follow up visit The 78 year old [...] presents for Complete Exam. 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 Pt recently has tearing that she thinks is from pollen. Pt has problems with road signs and threading a needle. Pt has not checked DM BS recently. Functional Status Date Functional Assessmen t No Information Instructions Date Instruction Additional Infor lillian Impression/Plan Impression/Plan Impression/Plan Impression/Plan Impression/Plan Impression/Plan Impression/Plan Follow [...] Gonzalo Han M.D. for post op exam. Follow up - Schedule Yag PC OS Bilateral artificial lens implant - Educational material given Related to Bilateral artificial lens implant Impression/Plan - IO L's in good position. Discussed PCF formation with pt, discussed YAG PC for treatment. R/a/b explained. Pt understands and will schedule. Diabetes type II: no background retinopathy, no signs of neovascularization noted. Discussed ocular and systemic benefits of blood sugar control. DM letter sent to Dr Hernandez. 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
--- OUTSIDE RECORDS SUMMARY | 2025-02-06 11:18 | XMS_ITS | Encounter Summary ---
Author Organization [facility] Address [facility] [place] [address] Care Team Providers Care Car Sweeper Name Role Phone Annmarie Parada MD Primary Care Provider [phone] Madison Oakley RN Unavailable [phone] Encounter Details Date Type Department Care Team (Latest Contact Info) Description 05/02/2022 [employer] Message Enc [facility] - [place] [address] [address] [place] [address] Annmarie Parada MD [address] [place] [address] [address] [place] [address] Feosol iron tablets Social History [...] Sex Assigned at Female 09/23/2024 11:35 AM TELEPHONE SWITCHBOARD OPERATOR Legal Sex Female 1:27 PM CDT Gender Identity Female 09/23/2024 11:35 AM TELEPHONE SWITCHBOARD OPERATOR Sexual Orientation Straight 09/23/2024 11 :35 AM TELEPHONE SWITCHBOARD OPERATOR COVID-19 Exposure Response Date Recorded In the last 10 days, have yo u been in contact with someone who was confirmed or suspected to have Coronavirus/COVID-19? No / Unsure 05/05/2022 11:02 AM CDT documented as of this encounter Plan of Treatment Upcoming Encounters Date Type Department Care Team (Late st Contact Info) Description 04/07/2025 9:00 AM CDT Office Visit [facility] [place] [address] [address] [place] [address] Annmarie Parada MD [address] [place] [address] 06/19/2025 11:45 AM TELEPHONE SWITCHBOARD OPERATOR Office Visit [facility] [address] Slim Florence MD [facility], [address] [place] [address] documented as of this encounter Visit Diagnoses Not on filedocumented in this encounter Additional Health Concerns Assessment Noted Time PHQ-9 Depression Total Score: 0 09/27/19 22 8:56 AM TELEPHONE SWITCHBOARD OPERATOR documented as of this encounter Care Teams Car Sweeper Relationship Specialty Start Date End Date Annmarie Parada MD [address] [place] [address] PCP - General INTERNAL MEDICINE 09/26/21 Madison Oakley, RN [address] [place] [address] Bariatric Program Coordinator (Ambulatory) REGISTERED NURSE 03/05/23 documented as of this encounter
--- OUTSIDE RECORDS SUMMARY | 2025-02-06 11:18 | XMS_ITS | Encounter Summary ---
Author Organization [facility] Address [facility] [place] [address] Care Team Providers Care Tube Winder Hand Name Role Phone Annmarie Parada MD Primary Care Provider [phone] Encounter Details Date Type Department Care Team (Late st Contact Info) Description 02/18/2024 [employer] Message Enc [address] [place] [address] [facility] Provider results Social History Tobacco Use Types [...] Sex Assigned at Female 09/23/2024 11:35 AM TERRITORY MANAGER GENERAL SALES Legal Sex Female 1:27 PM CDT Gender Identity Female 09/23/2024 11:35 AM TERRITORY MANAGER GENERAL SALES Sexual Orientation Straight 09/23/2024 11 :35 AM TERRITORY MANAGER GENERAL SALES documented as of this encounter Plan of Treatment Upcoming Encounters Date Type Department Care Team (Late st Contact Info) Description 04/07/2025 9:00 AM CDT Office Visit [address] [place] [address] Annmarie Parada MD [address] [address] 06/19/2025 11:45 AM TERRITORY MANAGER GENERAL SALES Office Visit [facility] [address] [address] Slim Florence MD [facility], [address] [place] [address] documented as of this encounter Visit Diagnoses Not on filedocumented in this encounter Additional Health Concerns Assessment Noted Time PHQ-9 Depression Total Score: 0 02/15/20 24 6:18 PM CDT documented as of this encounter Care Teams Tube Winder Hand Relationship Specialty Start Date End Date Annmarie Parada MD [address] [address] PCP - General INTERNAL MEDICINE 09/26/21 documented as of this encounter
--- OUTSIDE RECORDS SUMMARY | 2025-02-06 11:18 | XMS_ITS | Encounter Summary ---
Author Organization [facility] Address [address] [place] [address] Care Team Providers Care Documentation Manager Name Role Phone Jose Maria Hernandez MD Primary Care Provider [phone] Annmarie Parada MD Primary Care Provider [phone] Madison Oakley RN Unavailable [phone] Encounter Details Date Type Department Care Team (Late st Contact Info) Description 09/25/2021 Abstract [facility], [address] [address] Abner Yin MA Social History Tobacco Use [...] Sex Assigned at Female 09/23/2024 11:35 AM PARTS CLASSIFIER Legal Sex Female 1:27 PM CDT Gender Identity Female 09/23/2024 11:35 AM PARTS CLASSIFIER Sexual Orientation Straight 09/23/2024 11 :35 AM PARTS CLASSIFIER COVID-19 Exposure Response Date Recorded In the last 10 days, have yo u been in contact with someone who was confirmed or suspected to have Coronavirus/COVID-19? No / Unsure 09/25/2021 3:11 PM PARTS CLASSIFIER documented as of this encounter Plan of Treatment Upcoming Encounters Date Type Department Care Team (Late st Contact Info) Description 04/07/2025 9:00 AM CDT Office Visit [facility] Mult[facility] - [place] [address] [place] [address] [address] [place] [address] Annmarie Parada MD [address] [facility] [address] [place] [address] 06/19/2025 11:45 AM PARTS CLASSIFIER Office Visit [facility] [place] [address] Slim Florence MD Three [facility], [address] [place] [address] documented as of this encounter Procedures Procedure [...] on filedocumented in this encounter Care Teams Documentation Manager Relationship Specialty Start Date End Date Jose Maria Hernandez MD [address] [place] [address] PCP - General INTERNAL MEDICINE 05/01/21 09/25/21 Annmarie Parada MD [address] [facility] [address] [place] [address] PCP - General INTERNAL MEDICINE 09/26/21 Madison Oakley, RN [address] [place] [address] Bunker Worker (Ambulatory) REGISTERED NURSE 03/05/23 04/05/23 documented as of this encounter
--- OUTSIDE RECORDS SUMMARY | 2025-02-06 11:18 | XMS_ITS | Encounter Summary ---
Author Organization [facility] - [facility] Address [facility] [place] [address] Care Team Providers Care Garage Door Service Technician Name Role Phone Annmarie Parada MD Primary Care Provider [phone] Madison Oakley RN Unavailable [phone] Encounter Details Date Type Department Care Team (Late st Contact Info) Description 01/08/2022 Core2 Group Message Enc [facility] Medical Group Multispecialty Care - [address] [place] [address] [place], [facility] Provider test results Social History Tobacco Use [...] Sex Assigned at Female 09/23/2024 11:35 AM BUSINESS MANAGEMENT CONSULTANT Legal Sex Female 1:27 PM CDT Gender Identity Female 09/23/2024 11:35 AM BUSINESS MANAGEMENT CONSULTANT Sexual Orientation Straight 09/23/2024 11 :35 AM BUSINESS MANAGEMENT CONSULTANT COVID-19 Exposure Response Date Recorded In the last 10 days, have yo u been in contact with someone who was confirmed or suspected to have Coronavirus/COVID-19? No / Unsure 01/06/2022 9:52 AM CDT documented as of this encounter Plan of Treatment Upcoming Encounters Date Type Department Care Team (Late st Contact Info) Description 04/07/2025 9:00 AM CDT Office Visit [facility] Medical Group Multispecialty Care - [place] [address] [address] [place] [address] Annmarie Parada MD [address] [place] [address] 06/19/2025 11:45 AM BUSINESS MANAGEMENT CONSULTANT Office Visit [facility] [address] Slim Florence MD [facility], [address] [place] [address] documented as of this encounter Visit Diagnoses Not on filedocumented in this encounter Additional Health Concerns Assessment Noted Time PHQ-9 Depression Total Score: 0 09/27/19 22 8:56 AM BUSINESS MANAGEMENT CONSULTANT documented as of this encounter Care Teams Garage Door Service Technician Relationship Specialty Start Date End Date Annmarie Parada MD [address] [place] [address] PCP - General INTERNAL MEDICINE 09/26/21 Madison Oakley, RN [address] [place] [address] Flight Controls Engineer (Ambulatory) REGISTERED NURSE 03/05/23 documented as of this encounter
--- OUTSIDE RECORDS SUMMARY | 2025-02-06 11:18 | XMS_ITS | Encounter Summary ---
Author Organization [facility] - [facility] Address [facility] [place] [address] Care Team Providers Care Waste Transportation Technician Name Role Phone Annmarie Parada MD Primary Care Provider [phone] Madison Oakley RN Unavailable [phone] Encounter Details Date Type Department Care Team (Late st Contact Info) Description 04/29/2022 WHMSOFT Message Enc [facility] Medical Group Multispecialty Care - [address] [place] [address] [place], [facility] Provider Lab Results Social History Tobacco Use [...] Sex Assigned at Female 09/23/2024 11:35 AM CHAIN TESTING MACHINE OPERATOR Legal Sex Female 1:27 PM CDT Gender Identity Female 09/23/2024 11:35 AM CHAIN TESTING MACHINE OPERATOR Sexual Orientation Straight 09/23/2024 11 :35 AM CHAIN TESTING MACHINE OPERATOR COVID-19 Exposure Response Date Recorded In the last 10 days, have yo u been in contact with someone who was confirmed or suspected to have Coronavirus/COVID-19? No / Unsure 04/28/2022 8:58 AM CDT documented as of this encounter Plan of Treatment Upcoming Encounters Date Type Department Care Team (Late st Contact Info) Description 04/07/2025 9:00 AM CDT Office Visit [facility] Medical Group Multispecialty Care - [place] [address] [address] [place] [address] Annmarie Parada MD [address] [place] [address] 06/19/2025 11:45 AM CHAIN TESTING MACHINE OPERATOR Office Visit [facility] [address] Slim Florence MD [facility], [address] [place] [address] documented as of this encounter Visit Diagnoses Not on filedocumented in this encounter Additional Health Concerns Assessment Noted Time PHQ-9 Depression Total Score: 0 09/27/19 22 8:56 AM CHAIN TESTING MACHINE OPERATOR documented as of this encounter Care Teams Waste Transportation Technician Relationship Specialty Start Date End Date Annmarie Parada MD [address] [place] [address] PCP - General INTERNAL MEDICINE 09/26/21 Madison Oakley, RN [address] [place] [address] Director Economic (Ambulatory) REGISTERED NURSE 03/05/23 documented as of this encounter
--- OUTSIDE RECORDS SUMMARY | 2025-02-06 11:18 | XMS_ITS | Encounter Summary ---
Author Organization [facility] Address [facility] hospital[facility] [place] [address] Care Team Providers Care Field Auto Appraiser Name Role Phone Annmarie Parada MD Primary Care Provider [phone] Encounter Details Date Type Department Care Team (Late st Contact Info) Description 02/22/2024 Vidder Message Enc [address] [place] [address] [place], [facility] Provider lab results Social History Tobacco Use [...] Sex Assigned at Female 09/23/2024 11:35 AM MACHINERY REPAIR MAINTENANCE SUPERVISOR Legal Sex Female 1:27 PM CDT Gender Identity Female 09/23/2024 11:35 AM MACHINERY REPAIR MAINTENANCE SUPERVISOR Sexual Orientation Straight 09/23/2024 11 :35 AM MACHINERY REPAIR MAINTENANCE SUPERVISOR documented as of this encounter Plan of Treatment Upcoming Encounters Date Type Department Care Team (Late st Contact Info) Description 04/07/2025 9:00 AM CDT Office Visit [address] [place] [address] Annmarie Parada MD [address] [address] 06/19/2025 11:45 AM MACHINERY REPAIR MAINTENANCE SUPERVISOR Office Visit [facility] [address] [address] Slim Florence MD Three [facility], [address] [place] [address] documented as of this encounter Visit Diagnoses Not on filedocumented in this encounter Additional Health Concerns Assessment Noted Time PHQ-9 Depression Total Score: 0 02/15/20 24 6:18 PM CDT documented as of this encounter Care Teams Field Auto Appraiser Relationship Specialty Start Date End Date Annmarie Parada MD [address] [place] [address] PCP - General INTERNAL MEDICINE 09/26/21 documented as of this encounter
--- OUTSIDE RECORDS SUMMARY | 2025-02-06 11:18 | XMS_ITS | Encounter Summary ---
Author Organization [facility] Address [facility] [place] [address] Care Team Providers Care Deputy Clerk Of Court Name Role Phone Annmarie Parada MD Primary Care Provider [phone] Encounter Details Date Type Department Care Team (Late st Contact Info) Description 10/20/2024 Prep for Procedure [facility] [address] [place], [place] [id number] Dennys Lara MD [address] [place] [address] Social History Tobacco Use Types Packs/Day Years [...] Sex Assigned at Female 09/23/2024 11:35 AM MANUSCRIPT READER Legal Sex Female 1:27 PM CDT Gender Identity Female 09/23/2024 11:35 AM MANUSCRIPT READER Sexual Orientation Straight 09/23/2024 11 :35 AM MANUSCRIPT READER documented as of this encounter Plan of Treatment Upcoming Encounters Date Type Department Care Team (Late st Contact Info) Description 04/07/2025 9:00 AM CDT Office Visit [facility] Medical Group Multispecialty Care - [place] [address] [facility] [address] [place] [address] Annmarie Parada MD [address] [facility] [address] [place] [address] 06/19/2025 11:45 AM MANUSCRIPT READER Office Visit [facility] [address] [place] [address] [address] [place] [address] Slim Florence MD Three [facility], [address] [place] [address] documented as of this encounter Results * ECG 12-Lead (10/21/2024 1:37 PM CDT) 10/21/2024 1:37 PM CDT Narrative [facility] ([facility]) RAD - 10/24/2024 10:59 AM CDT [facility] Test Date: 2024-10-21 Pat Name: FABIÁN BILLINGS Department: 85 Room: Gender: Female Phys Ther: : 1945 Requested By: DENNYS LARA Order Number: [id number] Reading MD: Uli Way Measurements Intervals King Rate: 51 P: 87 DE: 192 QRS: 40 QRSD: 91 T: 49 QT: 426 QTc: 396 Interpretive Statements SINUS BRADYCARDIA WITH SINUS ARRHYTHMIA Compared to ECG 04/04/2024 11:53:07 Sinus bradycardia is present Procedure Note Uli Way MD - 10/24/2024 [facility] Test Date: 2024-10-21 Pat Name: FABIÁN BILLINGS Department: 85 Room: Gender: Female Phys Ther: : 1945 Requested By: DENNYS LARA Order Number: [id number] Reading MD: Uli Way Measurements Intervals King Rate: 51 P: 87 DE: 192 QRS: 40 QRSD: 91 T: 49 QT: 426 QTc: 396 Interpretive Statements SINUS BRADYCARDIA WITH SINUS ARRHYTHMIA Compared to ECG 04/04/2024 11:53:07 Sinus bradycardia is present us Dennys Lara MD ECG ORDERABLES Final Result Performing Organization Address City/[facility] Co de Phone Number [facility] ([facility]) [facility] documented in this encounter Visit Diagnoses Diagnosis History of VA (myocardial infarction)- Primary Old myocardial infarction History of VA (myocardial infarction) Old myocardial infarction documented in this encounter Additional Health Concerns Assessment Noted Time PHQ-9 Depression Total Score: 0 09/24/19 25 6:57 PM MANUSCRIPT READER documented as of this encounter Care Teams Deputy Clerk Of Court Relationship Specialty Start Date End Date Annmarie Parada MD [address] [address] PCP - General INTERNAL MEDICINE 09/26/21 documented as of this encounter
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
--- OUTSIDE RECORDS SUMMARY | 2025-02-06 11:18 | XMS_ITS | Clinical Summary ---
Author Organization [facility] Address [address] [place] [address] Care Team Providers Care Circulator Name Role Phone Annmarie Parada MD Primary Care Provider [phone] Allergies Active Allergy Reactions Criticality Noted Date [...] 100 mg by mouth daily. 3 Active traMADol (ULTRAM) 50 MG tabletIndicatio ns:Chronic Pain Take 1-2 tablets (50-100 mg total) by mouth 2 (two) times daily as needed. Indications : Chronic Pain 60 tablet 4 Active magnesium oxide (MAG-OX) 400 MG tablet Take 1 tablet (400 mg total) by mouth 2 (two) times daily. 60 tablet 1 4 Active Finerenone (KERENDIA) 10 MG TabIndications: Stage 3 chronic kidney disease, unspecified whether stage 3a or 3b CKD (CMS/HCC) Take 10 mg by mouth daily. 90 tablet 1 5 Active glipiZIDE (GLUCOTROL) 5 MG tabletIndicatio ns:Type 2 diabetes mellitus with hyperglycemia, without long-term current use of insulin (CMS/HCC HHS/HCC) Take 1 tablet (5 mg total) by mouth every morning before breakfast. 90 tablet 1 5 Active pantoprazole EC (PROTONIX) 40 MG tabletIndicatio ns:Dysphagia, unspecified type,Gastroesop hageal reflux disease without esophagitis Take 1 tablet (40 mg total) by mouth daily. 90 tablet 1 5 Active pregabalin (LYRICA) 150 MG capsuleIndicati ons:Polyneuropa thy, unspecified Take 1 capsule (150 mg total) by mouth 3 (three) times daily. 270 capsule 1 5 Active valsartan-hydro CHLOROthiazide (DIOVAN-HCT) 320-12.5 MG tabletIndicatio ns:Hypertension associated with chronic kidney disease due to type 2 diabetes mellitus (CMS/HCC HHS/HCC) Take 1 tablet by mouth daily. 90 tablet 1 5 Active dilTIAZem ER 240 MG 24 hr capsuleIndicati ons:Atrial fibrillation, unspecified type (CMS/HCC HHS/HCC),Hypert ension associated with type 2 diabetes mellitus (CMS/HCC HHS/HCC) Take 1 capsule (240 mg total) by mouth daily. 90 capsule 1 5 Active atorvastatin (LIPITOR) 40 MG tabletIndicatio ns:Hyperlipidem ia associated with type 2 diabetes mellitus (CMS/HCC HHS/HCC) TAKE 1 TABLET BY MOUTH NIGHTLY AT BEDTIME. 90 tablet 5 Active ELIQUIS 5 MG tabletIndicatio ns:Atrial fibrillation, unspecified type (CMS/HCC HHS/HCC) TAKE 1 TABLET BY MOUTH TWICE A DAY 180 tablet 5 Active apixaban (ELIQUIS) 5 MG tabletIndicatio ns:Atrial fibrillation, unspecified type (CMS/HCC HHS/HCC) Take 1 tablet (5 mg total) by mouth 2 (two) times daily. 180 tablet 5 025 Discontinued Active Problems Problem Noted Date Diagnosed Date Branch retinal vein occlusio n of left eye, unspecified complication status 09/23/2024 Stage 3b chronic kidney disease 09/23/2024 Dysphagia, unspecified type 09/02/2024 Gastroesophageal reflux disease without esophagi tis 02/13/2024 Elevated alkaline phosphatase level 02/13/2024 Polyneuropathy, unspecified 02/13/2024 Hypertension associated with chronic kidney disease due to type 2 diabetes mellitus ([facility]) 02/13/2024 Esophageal dysphagia 05/28/2022 Overview (05/28/2022): Added automatically from request for surgery [id number] Chronic kidney disease, stage III (moderate) 04/2022 Diabetes ([facility]) 01/06/2022 Chronic pain of both knees 09/26/2021 Postmenopausal 09/26/2021 Precordial pain 09/23/[address] (myocardial infarction) 09/23/2021 Coronary artery disease invo lving chilkoot coronary 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 angina pectoris 02/16/2020 Dyspnea 02/16/2020 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 Hyperlipidemia associated wi th type 2 diabetes mellitus ([facility]) 10/13/2010 Essential (primary) hypertension 10/13/2010 Encounters Date Type Department Care Team Description 02/02/2025 Telephone [facility], [address] [address] Diana Shah ANP- Concerns 01/12/2025 Catapulter Message [address] [address] Mychart, [facility] Provider Labs 01/12/2025 Patient Outreach [facility] Medical Group Multispecialty Care - [address] [place] [address] Gist, Edmund Zheng MA Other (AETNA) 11/24/2024 Scan HEALTH INFO SRVCS Scanned, Doc [facility] Pathology (SCAN) 11/18/2024 Scan MG HEALTH INFO SRVCS Scanned, [facility] from Last 3 Months Immunizations Immunization Administration [...] Sex Assigned at Female 09/23/2024 11:35 AM RAILWAY SIGNALLING ENGINEER Legal Sex Female 1:27 PM CDT Gender Identity Female 09/23/2024 11:35 AM RAILWAY SIGNALLING ENGINEER Sexual Orientation Straight 09/23/2024 11 :35 AM RAILWAY SIGNALLING ENGINEER Last Filed Vital Signs Vital Sign Reading [...] 11:12 AM CDT Height 177.8 cm (5' 10) 11/04/2024 11:12 AM CDT Body Mass Index 25 11/04/2024 11:12 AM CDT Plan of Treatment Upcoming Encounters Date Type Department Care Team (Late st Contact Info) Description 04/07/2025 9:00 AM CDT Office Visit [facility] Medical Group Multispecialty Care - [address] [place] [address] Annmarie Parada MD [address] [facility] [address] [place] [address] 06/19/2025 11:45 AM RAILWAY SIGNALLING ENGINEER Office Visit [facility] [address] [facility] [address] [place] [address] Slim Florence MD Three [facility], [address] [place] [address] Health Maintenance Due Date Last Done Comments Zoster Vaccines (1 of 2) 1997 RSV Immunization or 60+ Years (1 - 1-dose 75+ series) 2022 COVID-19 Vaccine ( - 2023- season) 2024 10/05/2020, 09/14/2020 Kidney Health Evaluation 02/14/2025 02/15/2024 Annual Medicare Wellness Visit 03/08/2025 Postponed from 2012 (Patient Refused) Hemoglobin A1C 03/26/2025 09/23/2024, 01/18, 07/06/2023, Additional history exists Diabetes: Retinopathy Eye Exam 09/08/2025 09/08/2023, 08/11/2022, 08/12/2021 Lipid Panel 09/23/2025 09/23/2024, 01/18, 07/06/2023, Additional history exists DTaP, Tdap and Td Vaccines (2 - Td or Tdap) 09/27/2031 09/26/2021 Colorectal Cancer Screening Colonoscopy (10 Years) Discontinued 01/15/2017 Hepatitis C Completed 09/26/2021 Dexa Scan (General) Completed 12/31/2021, 3 AAA SCREENING Completed 03/03/2023, 02/17, 03/03/2023, Additional history exists PHQ-2 (Physician Hodges) Completed 09/23/2024 Meningococcal B Vaccine Aged Out No l onger eligible based on patient's age to complete this topic Meningococcal Vaccine Aged Out No pedro joe eligible based on patient's age to complete this topic RSV Immunizations Under 20 Months Aged Out No longer eligible based on patient's age to complete this topic Procedures Procedure Name Priority Date/Time Associated Diagnosis Comments PATHOLOGY GENERIC (SCAN ORDER) 11/24/2024 LIPID PANEL Routine 09/23/2024 12:31 PM RAILWAY SIGNALLING ENGINEER Drug therapy HEMOGLOBIN, GLYCOSYLATED Routine 09/23/2024 12:31 PM RAILWAY SIGNALLING ENGINEER Drug therapy DIABETIC RETINOPATHY EXAM (NEGATIVE)(SCAN ORDER) Routine 09/08/2023 CT CHEST+ABD+PEL W CON STAT 03/03/2023 1:57 PM CDT BONE DENSITY GENERIC (SCAN ORDER) 12/31/2021 HEPATITIS C ANTIBODY Routine 09/26/2021 10:07 AM RAILWAY SIGNALLING ENGINEER Annual physical exam Encounter for medical examination to establish care General medical exam Encounter for hepatitis C screening test for low risk patient COLONOSCOPY GENERIC (SCAN ORDER) 01/15/2017 from Last 3 Months or Most Recently Relevant to Health Maintenance Results * PATHOLOGY GENERIC (SCAN ORDER) (11/24/2024) 11/24/2024 us [facility] Scanned SCANNING Final Resu lt * (ABNORMAL) HEMOGLOBIN, GLYCOSYLATED (09/23/2024 12:31 PM RAILWAY SIGNALLING ENGINEER) HGB A1C 6.7(H) 4.5 - 6.2 % 09/24/2024 10:07 AM RAILWAY SIGNALLING ENGINEER [facility] ESTIMATED AVG GLUCOSE 146(H) 74 - 106 MG/DL 09/24/2024 10:07 AM RAILWAY SIGNALLING ENGINEER [facility] 09/23/2024 12:3 1 PM RAILWAY SIGNALLING ENGINEER us Annmarie Parada MD LABORATORY Final Result MARCUS GODDARD [address] [place] [address], * (ABNORMAL) LIPID PANEL (09/23/2024 12:31 PM RAILWAY SIGNALLING ENGINEER) CHOLESTEROL 155 <200 MG/DL 09/23/2024 8:01 PM RAILWAY SIGNALLING ENGINEER [facility] TRIGLYCERIDES 182(H) <150 MG/DL 09/23/2024 8:01 PM [facility] HDL 43 >40 MG/DL 09/23/2024 8:01 PM RAILWAY SIGNALLING ENGINEER [facility] LDL-C 76 <100 MG/DL 09/23/2024 8:01 PM RAILWAY SIGNALLING ENGINEER [facility] VLDL CALCULATION 36(H) 5 - 28 MG/DL 09/23/2024 8:01 PM RAILWAY SIGNALLING ENGINEER [facility] CHOL/HDL RATIO 3.6 0.0 - 4.0 09/23/2024 8:01 PM [facility] LDL/HDL 1.8 0.41 - 2.13 09/23/2024 8:01 PM RAILWAY SIGNALLING ENGINEER [facility] NON HDL CHOLESTEROL 112 <140 MG/DL 09/23/2024 8:01 PM [facility] 09/23/2024 12:3 1 PM RAILWAY SIGNALLING ENGINEER Annmarie Parada MD LABORATORY Final Result Performing Organization Address City/[facility]/ZIP Co de Phone Number [facility] [address] [place] [address], * DIABETIC RETINOPATHY EXAM (NEGATIVE) (09/08/2023) [facility] Scanned SCANNING Final Resu lt [facility] ON[facility] * CT CHEST+ABD+PEL W CON (03/03/2023 [...] both hips without fracture. Procedure Note Danilo Hrap MD - 03/03/2023 IMAGING STUDIES: CT CHEST+ABD+PEL [...] * HEPATITIS C ANTIBODY (09/26/2021 10:07 AM RAILWAY SIGNALLING ENGINEER) HEPATITIS C AB NON-REACTI VE NON-REACT JUANCHO 09/27/2021 2:50 PM RAILWAY SIGNALLING ENGINEER [facility] Comment: ANTIBODIES TO HCV NOT DETECTED. DOES NOT EXCLUDE THE POSSIBILITY OF EXPOSURE TO HCV. 09/26/2021 10:0 7 AM RAILWAY SIGNALLING ENGINEER Annmarie Parada MD LABORATORY Final Result Performing Organization Address City/State/[facility] Co de Phone Number [facility] [address] [place] [address], [id number] * COLONOSCOPY GENERIC (01/15/2017) 01/15/2017 Narrative 01/15/2017 Ordered by an unspecified provider. us Documents Scanned SCANNING Final Result from Last 3 Months or Most Recently Relevant to Health Maintenance Insurance [employer] Care Teams Circulator Relationship Specialty Start Date End Date Annmarie Parada MD [address] [facility] [address] [place] [address] PCP - General INTERNAL MEDICINE 09/26/21
--- OUTSIDE RECORDS SUMMARY | 2025-02-06 11:18 | XMS_ITS | Clinical Summary ---
Author Organization [facility] Address [address] [place] [address] Care Team Providers Care Pharmacist Aide Name Role Phone Jose Maria Hernandez MD [...] Dyspnea 02/16/2020 Coronary artery disease invo lving [place] coronary artery of [place] heart without angina pectoris 02/16/2020 Sensorineural hearing [...] on file Legal Sex Female 11:31 PM HOPPER ATTENDANT Gender Identity Female 11/10/2019 9:28 AM CDT Sexual Orientation Not on file Obstetrics History Last Filed Vital Signs Vital Sign Reading Time Taken Comments Blood Pressure 131/68 07/17/2020 11:24 AM HOPPER ATTENDANT Pulse 73 07/17/2020 11:24 AM HOPPER ATTENDANT Temperature 36.3 C (97.3 F) 02/16/2020 9:49 AM CDT Respiratory Rate - - Oxygen Saturation 100% 02/16/2020 9:49 AM CDT Inhaled Oxygen Concentration - - Weight 76.7 kg (169 lb) 07/17/2020 11:24 AM HOPPER ATTENDANT Height 180.3 cm (5' 11) 07/17/2020 11:24 AM HOPPER ATTENDANT Body Mass Index 23.57 07/17/2020 11:24 AM HOPPER ATTENDANT Plan of Treatment Not on file Insurance [facility] MEDICARE [facility] MEDICARE Address: [address] [place], [place] [id number] [facility] MEDICARE [facility] MEDICARE Address: [address] [place] [address] Care Teams Pharmacist Aide Relationship Specialty Start Date End Date Jose Maria Hernandez MD [address] [place] [address] PCP - General 11/10/16
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
--- NOTE | 2025-02-06 11:27 | ECG_ITS ---
Test Date: 2025-02-06 11:38:53 Measurements Intervals [place] Rate: 66 P: 0 MN: 0 QRS: 19 QRSD: 90 T: 56 QT: 402 QTc: 423 Interpretive Statements ATRIAL FIBRILLATION LOW QRS VOLTAGE IN PRECORDIAL LEADS [QRS DEFLECTION < 1.0 mV IN CHEST LEADS] ABNORMAL RHYTHM ECG No previous ECG available for comparison Electronically Signed On 02-06-2025 15:21:08 CDT by Reza Damian M.D.
--- OUTSIDE RECORDS SUMMARY | 2025-02-06 12:15 | XMS_ITS | Encounter Summary ---
Author Organization [facility] Address [address] [place] [address] Phone Care Team Providers Care Branch Assistant Name Role Phone Jose Maria Hernandez MD [...] on file Legal Sex Female 11:31 PM STUDIO GRIP Gender Identity Female 11/10/2019 9:28 AM CDT [...] who may have a more legible copy. IO GRIP * Tara Wallace RN - 07/10/2020 11:59 PM CST 2/: spoke w/ pt informing her. She will discuss w/ PCP. IO GRIP documented in this encounter Plan of Treatment Not on file documented as of this encounter Procedures Procedure Name Priority Date/Time Associated Diagnosis Comments SCAN - LABS 07/10/2020 documented in this encounter Results * SCAN - LABS (07/10/2020) us Provider Scanning Final Result documented in this encounter Visit Diagnoses Not on filedocumented in this encounter Care Teams Branch Assistant Relationship Specialty Start Date End Date Jose Maria Hernandez MD [address] [place] [address] PCP - General 11/10/16 documented as of this encounter
--- OUTSIDE RECORDS SUMMARY | 2025-02-06 12:15 | XMS_ITS | Encounter Summary ---
Author Organization [facility] Address [facility] [place] [address] Care Team Providers Care Copy Technician Name Role Phone Annmarie Parada MD Primary Care Provider [phone] Encounter Details Date Type Department Care Team (Late st Contact Info) Description 02/18/2024 ShoeDazzle Message Enc [address] [place] [address] [facility] Provider results Social History Tobacco Use [...] Sex Assigned at Female 09/23/2024 11:35 AM HOT STONE SETTER Legal Sex Female 1:27 PM CDT Gender Identity Female 09/23/2024 11:35 AM HOT STONE SETTER Sexual Orientation Straight 09/23/2024 11 :35 AM HOT STONE SETTER documented as of this encounter Plan of Treatment Upcoming Encounters Date Type Department Care Team (Late st Contact Info) Description 04/07/2025 9:00 AM CDT Office Visit [address] [place] [address] Annmarie Parada MD [address] [address] 06/19/2025 11:45 AM HOT STONE SETTER Office Visit [facility] [address] [address] Slim Florence MD [facility], [address] [place] [address] documented as of this encounter Visit Diagnoses Not on filedocumented in this encounter Additional Health Concerns Assessment Noted Time PHQ-9 Depression Total Score: 0 02/15/20 24 6:18 PM CDT documented as of this encounter Care Teams Copy Technician Relationship Specialty Start Date End Date Annmarie Parada MD [address] [address] PCP - General INTERNAL MEDICINE 09/26/21 documented as of this encounter
--- OUTSIDE RECORDS SUMMARY | 2025-02-06 12:15 | XMS_ITS | Encounter Summary ---
Author Organization [facility] Address [facility] [place] [address] Care Team Providers Care Biochemical Development Engineer Name Role Phone Annmarie Parada MD Primary Care Provider [phone] Madison Oakley RN Unavailable [phone] Encounter Details Date Type Department Care Team (Late st Contact Info) Description 01/08/2022 HapBoo Message Enc [facility] Medical Group Multispecialty Care - [address] [place] [address] [facility], [facility] Provider test results Social History [...] Sex Assigned at Female 09/23/2024 11:35 AM STENCIL MACHINE OPERATOR Legal Sex Female 1:27 PM CDT Gender Identity Female 09/23/2024 11:35 AM STENCIL MACHINE OPERATOR Sexual Orientation Straight 09/23/2024 11 :35 AM STENCIL MACHINE OPERATOR COVID-19 Exposure Response Date Recorded In the last 10 days, have yo u been in contact with someone who was confirmed or suspected to have Coronavirus/COVID-19? No / Unsure 01/06/2022 9:52 AM CDT documented as of this encounter Plan of Treatment Upcoming Encounters Date Type Department Care Team (Late st Contact Info) Description 04/07/2025 9:00 AM CDT Office Visit [facility] Medical Group Multispecialty Care - [place] [address] [address] [place] [address] Annmarie Parada MD [address] [place] [address] 06/19/2025 11:45 AM STENCIL MACHINE OPERATOR Office Visit [facility] [address] Slim Florence MD [facility], [address] [place] [address] documented as of this encounter Visit Diagnoses Not on filedocumented in this encounter Additional Health Concerns Assessment Noted Time PHQ-9 Depression Total Score: 0 09/27/19 22 8:56 AM STENCIL MACHINE OPERATOR documented as of this encounter Care Teams Biochemical Development Engineer Relationship Specialty Start Date End Date Annmarie Parada MD [address] [place] [address] PCP - General INTERNAL MEDICINE 09/26/21 Madison Oakley, RN [address] [place] [address] Water Chaser (Ambulatory) REGISTERED NURSE 03/05/23 documented as of this encounter
--- OUTSIDE RECORDS SUMMARY | 2025-02-06 12:15 | XMS_ITS | Encounter Summary ---
Author Organization [facility] Address [facility] [place] [address] Care Team Providers Care Button Broacher Name Role Phone Annmarie Parada MD Primary Care Provider [phone] Encounter Details Date Type Department Care Team (Late st Contact Info) Description 10/20/2024 Prep for Procedure [facility] Day Services [address] [place], [place] [id number] Dennys Lara MD [address] [place] [address] Social History Tobacco Use Types Packs/Day Years [...] Sex Assigned at Female 09/23/2024 11:35 AM TEA LEAF READER Legal Sex Female 1:27 PM CDT Gender Identity Female 09/23/2024 11:35 AM TEA LEAF READER Sexual Orientation Straight 09/23/2024 11 :35 AM TEA LEAF READER documented as of this encounter Plan of Treatment Upcoming Encounters Date Type Department Care Team (Late st Contact Info) Description 04/07/2025 9:00 AM CDT Office Visit [facility] Medical [facility] Multispecialty Care - [place] [address] [facility] [address] [place] [address] Annmarie Parada MD [address] [facility] [address] [place] [address] 06/19/2025 11:45 AM TEA LEAF READER Office Visit [facility] [address] [place] [address] [address] [place] [address] Slim Florence MD [facility], [address] [place] [address] documented as of this encounter Results * ECG 12-Lead (10/21/2024 1:37 PM CDT) 10/21/2024 1:37 PM CDT Narrative [facility] RAD - 10/24/2024 10:[address] [facility] Test Date: 2024-10-21 Pat Name: FABIÁN BILLINGS Department: 85 Room: Gender: Female Chha: : 1945 Requested By: DENNYS LARA Order Number: [id number] Reading MD: Uli Way Measurements Intervals [place] Rate: 51 P: 87 [place]: 192 QRS: 40 QRSD: 91 T: 49 QT: 426 QTc: 396 Interpretive Statements SINUS BRADYCARDIA WITH SINUS ARRHYTHMIA Compared to ECG 04/04/2024 11:53:07 Sinus bradycardia is present Procedure Note Uli Way MD - 10/24/2024 [facility] Test Date: 2024-10-21 Pat Name: FABIÁN BILLINGS Department: 85 Room: Gender: Female Chha: : 1945 Requested By: DENNYS LARA Order Number: [id number] Reading MD: Uli Way Measurements Intervals [place] Rate: 51 P: 87 [place]: 192 QRS: 40 QRSD: 91 T: 49 QT: 426 QTc: 396 Interpretive Statements SINUS BRADYCARDIA WITH SINUS ARRHYTHMIA Compared to ECG 04/04/2024 11:53:07 Sinus bradycardia is present us Dennys Lara MD ECG ORDERABLES Final Result Performing Organization Address City/[facility] Co de Phone Number [facility] documented in this encounter Visit Diagnoses Diagnosis History of PA (myocardial infarction)- Primary Old myocardial infarction History of PA (myocardial infarction) Old myocardial infarction documented in this encounter Additional Health Concerns Assessment Noted Time PHQ-9 Depression Total Score: 0 09/24/19 25 6:57 PM TEA LEAF READER documented as of this encounter Care Teams Button Broacher Relationship Specialty Start Date End Date Annmarie Parada MD [address] [address] PCP - General INTERNAL MEDICINE 09/26/21 documented as of this encounter
--- OUTSIDE RECORDS SUMMARY | 2025-02-06 12:15 | XMS_ITS | Encounter Summary ---
Author Organization [facility] Address On license of [facility] [place] [address] Care Team Providers Care Case Management Social Worker Name Role Phone Annmarie Parada MD Primary Care Provider [phone] Madison Oakley RN Unavailable [phone] Encounter Details Date Type Department Care Team (Late st Contact Info) Description 10/30/2022 Prep for Procedure [facility] One Day Services [address] [place] [address] Dennys Lara MD [address] [place] [address] Social History Tobacco Use Types Packs/Day [...] Sex Assigned at Female 09/23/2024 11:35 AM TIMBER TRIMMER Legal Sex Female 1:27 PM CDT Gender Identity Female 09/23/2024 11:35 AM TIMBER TRIMMER Sexual Orientation Straight 09/23/2024 11 :35 AM TIMBER TRIMMER COVID-19 Exposure Response Date Recorded In the last 10 days, have yo u been in contact with someone who was confirmed or suspected to have Coronavirus/COVID-19? No / Unsure 10/30/2022 2:57 PM CDT documented as of this encounter Plan of Treatment Upcoming Encounters Date Type Department Care Team (Late st Contact Info) Description 04/07/2025 9:00 AM CDT Office Visit [facility] Medical Group Multispecialty Care - [address] [place] [address] Annmarie Parada MD [address] [facility] [address] [place], [place] [id number] 06/19/2025 11:45 AM TIMBER TRIMMER Office Visit [facility] [address] [place] [address] [address] [place], [place] [id number] Slim Florence MD [facility], [address] [place] [address] documented as of this encounter Results * ECG 12-Lead (10/30/2022 3:19 PM CDT) 10/30/2022 3:19 PM CDT Narrative [facility] RAD - 10/30/2022 9:01 PM CDT [facility] Test Date: 2022-10-30 Pat Name: FABIÁN BILLINGS Department: 85 Room: Gender: Female Certified Prosthetist Vice President: : 1945 Requested By: DENNYS LARA Order Number: [id number] Jeff BALTAZAR: Blake Langston Measurements Intervals [place] Rate: 66 P: 47 OK: 113 QRS: 34 QRSD: 97 T: 28 QT: 410 QTc: 432 Interpretive Statements SINUS RHYTHM WITH SHORT OK INTERVAL Compared to ECG 06/03/2021 13:16:44 Short OK interval now present Sinus arrhythmia no longer present Procedure Note Blake Langston MD - 10/30/2022 [facility] Test Date: 2022-10-30 Pat Name: FABIÁN BILLINGS Department: 85 Room: Gender: Female Certified Prosthetist Vice President: : 1945 Requested By: DENNYS LARA Order Number: [id number] Reading MD: Blake Langston Measurements Intervals [place] Rate: 66 P: 47 [place]: 113 QRS: 34 QRSD: 97 T: 28 QT: 410 QTc: 432 Interpretive Statements SINUS RHYTHM WITH SHORT OK INTERVAL Compared to ECG 06/03/2021 13:16:44 Short OK interval now present Sinus arrhythmia no longer present us Dennys Lara MD ECG ORDERABLES Final Result [facility] documented in this encounter Visit Diagnoses Diagnosis Preop testing- Primary Preoperative examination, unspecified Preop testing Preoperative examination, unspecified documented in this encounter Additional Health Concerns Assessment Noted Time PHQ-9 Depression Total Score: 0 09/27/19 22 8:56 AM TIMBER TRIMMER documented as of this encounter Care Teams Case Management Social Worker Relationship Specialty Start Date End Date Annmarie Parada MD [address] [facility] [address] [place] [address] PCP - General INTERNAL MEDICINE 09/26/21 Madison Oakley, RN [address] [place] [address] Cnmt (Ambulatory) REGISTERED NURSE 03/05/23 documented as of this encounter
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
--- OUTSIDE RECORDS SUMMARY | 2025-02-06 12:15 | XMS_ITS | Referral Summary ---
Author Organization [facility] Address [address] [place] [address] Care Team Providers Care Commercial Account Executive Name Role Phone Jose Maria Hernandez MD [...] Dyspnea 02/16/2020 Coronary artery disease invo lving [place] coronary artery of [place] heart without angina pectoris 02/16/2020 Sensorineural hearing [...] on file Legal Sex Female 11:31 PM NETWORK CABLER Gender Identity Female 11/10/2019 9:28 AM CDT Sexual Orientation Not on file Last Filed Vital Signs Vital Sign Reading Time Taken Comments Blood Pressure 131/68 07/17/2020 11:24 AM NETWORK CABLER Pulse 73 07/17/2020 11:24 AM NETWORK CABLER Temperature 36.3 C (97.3 F) 02/16/2020 9:49 AM CDT Respiratory Rate - - Oxygen Saturation 100% 02/16/2020 9:49 AM CDT Inhaled Oxygen Concentration - - Weight 76.7 kg (169 lb) 07/17/2020 11:24 AM NETWORK CABLER Height 180.3 cm (5' 11) 07/17/2020 11:24 AM NETWORK CABLER Body Mass Index 23.57 07/17/2020 11:24 AM NETWORK CABLER Plan of Treatment Not on file Insurance * Guarantor: Fabián Billings Account Type Relation to Patient Date of Phone Billing Address Personal/Family Self 1945 [address] MEDICARE ADVANTAGE [facility] Address: [address] [address] [place] [address] [facility] MEDICARE ADVANTAGE [facility] Address: [address] [address] [place] [address] Care Teams Commercial Account Executive Relationship Specialty Start Date End Date Jose Maria Hernandez MD [address] [place] [address] PCP - General 11/10/16
--- OUTSIDE RECORDS SUMMARY | 2025-02-06 12:15 | XMS_ITS | Encounter Summary ---
Author Organization [facility] - [facility] Address [facility] [place] [address] Care Team Providers Care Second Helper Name Role Phone Annmarie Parada MD Primary Care Provider [phone] Madison Oakley RN Unavailable [phone] Encounter Details Date Type Department Care Team (Late st Contact Info) Description 01/10/2022 [place] Learning Message Enc [facility] Medical Group Multispecialty Care - [address] [place] [address] [place], [facility] Provider Test Result Social History Tobacco Use [...] Sex Assigned at Female 09/23/2024 11:35 AM PBX INSPECTOR Legal Sex Female 1:27 PM CDT Gender Identity Female 09/23/2024 11:35 AM PBX INSPECTOR Sexual Orientation Straight 09/23/2024 11 :35 AM PBX INSPECTOR COVID-19 Exposure Response Date Recorded In the last 10 days, have yo u been in contact with someone who was confirmed or suspected to have Coronavirus/COVID-19? No / Unsure 01/06/2022 9:52 AM CDT documented as of this encounter Plan of Treatment Upcoming Encounters Date Type Department Care Team (Late st Contact Info) Description 04/07/2025 9:00 AM CDT Office Visit [facility] Medical Group Multispecialty Care - [address] [address] [address] [place] [address] Annmarie Parada MD [address] [place] [address] 06/19/2025 11:45 AM PBX INSPECTOR Office Visit [facility] [address] Slim Florence MD [facility], [address] [place] [address] documented as of this encounter Visit Diagnoses Not on filedocumented in this encounter Additional Health Concerns Assessment Noted Time PHQ-9 Depression Total Score: 0 09/27/19 22 8:56 AM PBX INSPECTOR documented as of this encounter Care Teams Second Helper Relationship Specialty Start Date End Date Annmarie Parada MD [address] [place] [address] PCP - General INTERNAL MEDICINE 09/26/21 Madison Oakley, RN [address] [place] [address] Crystal Slicer (Ambulatory) REGISTERED NURSE 03/05/23 documented as of this encounter
--- OUTSIDE RECORDS SUMMARY | 2025-02-06 12:15 | XMS_ITS | Encounter Summary ---
Author Organization [facility] - [facility] Address [facility] [place] [address] Care Team Providers Care Brand Advocate Name Role Phone Annmarie Parada MD Primary Care Provider [phone] Encounter Details Date Type Department Care Team (Late st Contact Info) Description 12/23/2023 SkillPages Message Enc [facility] - [address] [place] [address] Eugene [facility] Provider 6-Month Follow Up Social History Tobacco [...] Sex Assigned at Female 09/23/2024 11:35 AM WASH DRILLER HELPER Legal Sex Female 1:27 PM CDT Gender Identity Female 09/23/2024 11:35 AM WASH DRILLER HELPER Sexual Orientation Straight 09/23/2024 11 :35 AM WASH DRILLER HELPER documented as of this encounter Plan of Treatment Upcoming Encounters Date Type Department Care Team (Late st Contact Info) Description 04/07/2025 9:00 AM CDT Office Visit [facility] Multispecialty Care - [address] [address] [address] [place] [address] Annmarie Parada MD [facility] [address] 06/19/2025 11:45 AM WASH DRILLER HELPER Office Visit [facility] [address] Slim Florence MD [facility], [address] [place] [address] documented as of this encounter Visit Diagnoses Not on filedocumented in this encounter Additional Health Concerns Assessment Noted Time PHQ-9 Depression Total Score: 0 09/27/19 22 8:56 AM WASH DRILLER HELPER documented as of this encounter Care Teams Brand Advocate Relationship Specialty Start Date End Date Annmarie Parada MD [address] [place] [address] PCP - General INTERNAL MEDICINE 09/26/21 documented as of this encounter
--- OUTSIDE RECORDS SUMMARY | 2025-02-06 12:15 | XMS_ITS | Continuity of Care Document ---
Author Organization [facility] Address [address] [facility] [address] [place] [address] Phone Care Team Providers Care Brusher Hand Name Role Phone Preeti BROWNING Tracy Unavailable Unavailable Allergies, Adverse Reactions, Alerts Substance Reaction Status Criticality No Known Allergies Active No Inform ation Medications Medication Instructions Dosage Effective Dates (start - stop) Status Comments losartan 50 mg tablet take 1 tablet by o ral route every day 50 MG - Active tramadol 50 mg tablet [...] Diagnoses Date Provider Providers Copied on Encounter [facility], [address], [place], [place], [address], [place] tel:[phone] SEC Gorge [place] Professional diabetic eye exam (chief complaint) Stable hemispheric branch retinal vein occlusion (BRVO) of left eyeType 2 diabetes mellitus without complications CME (cystoid macular edema), leftBilateral artificial lens implantVitreo us degeneration, bilateral 5 Preeti OD Tracy. [facility] [address], [address], [place], [place], [address], [place]. tel:[phone] Referring Provider: Alfredo Romano, [address] [facility] [address], [place], [address] . tel:[phone] Office/outpa tient Visit, [facility], [address] [place], [place] [address], [place], [place], [address], [place] tel:[phone] SEC [place] Professional Follow up visit (chief complaint) Stable hemispheric branch retinal vein occlusion (BRVO) of left eyeType 2 diabetes mellitus without complications Presence of intraocular lensCME (cystoid macular edema), left 4 Preeti OD Tracy. [facility] [address], [address], [place], [place], [address], [place]. tel:[phone] Referring Provider: Alfredo Romano, [address] [facility] [address], [place], [address] . tel:[phone] [facility], [facility] [address], [place], [place], [address], [place] tel:[phone] SEC [place] Professional diabetic eye exam (chief complaint) Presence of intraocular lensType 2 diabetes mellitus without complications Stable hemispheric branch retinal vein occlusion (BRVO) of left eyeVitreous degeneration, bilateralCME (cystoid macular edema), left 4 Preeti OD Tracy. [facility] [address], [address], [place], [place], [address], [place]. tel:[phone] Referring Provider: Alfredo Romano, [address] [facility] [address], [place], [address] . tel:[phone] Office/outpa tient Visit, [facility], [facility] [address], [place], [place], [address], [place] tel:[phone] SEC [place] Professional Follow up visit (chief complaint) Branch retinal vein occlusion of left eye with macular edema 3 Duarte Fuentes. [address], [place], [place], [address], [place]. tel:[phone] Referring Provider: Alfredo Romano, [address], [place], [address] . tel:[phone] [facility], [address] [place] [address] [address], [place], [place], [address], [place] tel:[phone] SEC [place] Professional Diabetic eye exam (chief complaint) Bilateral artificial lens implantType 2 diabetes mellitus without complications Dry eye syndrome, leftHemispher ic branch retinal vein occlusion (BRVO) of left eye 3 Duarte Fuentes. [address], [address], [place], [address], [place]. tel:[phone] Referring Provider: Alfredo Romano, [address], [place], [address] . tel:[phone] [facility], [address] [place] [address] [address], [place], [place], [address], [place] tel:[phone] SEC [place] Professional Complete Exam (chief complaint) Presence of intraocular lensType 2 diabetes mellitus without complications Dry eye syndrome of left lacrimal gland 2 Duarte Fuentes. [address], [address], [place], [place], [address], [place]. tel:[phone] Referring Provider: Alfredo Romano, [address], [place], [address] . tel:[phone] [facility], [address] [place] [address] [address], [place], [place], [address], [place] tel:[phone] SEC Gorge KRISTINE Professional No Information 0 Rubi West. [address] [facility], [address] [facility], [place], [address], [place]. tel:[phone] [facility], [address], [place], [place], [address], [place] tel:[phone] SEC Gorge [place]MON[place] Professional diabetic eye exam (chief complaint) Type 2 diabetes mellitus without complications Presence of intraocular lens 9 Rubi OD Brett. [address] [facility], [address] [place] [address], [place], [address], [place]. tel:[phone] Referring Provider: Brett Venegas OD R, [address] [place] [address], [address]. tel:[phone] [facility], [address] [place] [address] [address], [place], [place], [address], [place] [phone] SEC Lani Rm No Information 9 Rubi OD Brett. [address] [place] [address], [address] [place] [address], [place], [address], [place]. tel:[phone] [facility], [address], [place], [place], [address], [place] tel:[phone] SEC Gorge CARMON[place] Professional 1 mo YAG PC PO (chief complaint) Encounter for examination following surgery 7 Emely Sánchez. [address], [address], [place], [place], [address], [place]. tel:[phone] Referring Provider: Gonzalo Spears, [address], [place], [address] . tel:[phone] Office/outpa tient Visit, Est [facility], [address], [place], [place], [address], [place] tel:[phone] SEC [place] Professional Blurry/decr eased vision (chief complaint) No Information 7 Emely Sánchez. [address] [facility], [address] [place], [address], . tel:[phone] Referring Provider: Gonzalo Spears, [address] [facility] [address], [place], [address] . tel:[phone] [facility], [address], [place], [place], [address], tel:[phone] SEC [place] Professional 1 mo PO (chief complaint) No Information Dec-0 9-201 6 Emely Sánchez. [address] [facility], [address] [place], [address], . tel:[phone] Referring Provider: Gonzalo Spears, [address] [facility] [place], [address] . tel:[phone] [facility], [address], [place], [place], [address], tel:[phone] SEC [place] Professional Procedure (chief complaint) No Information Nov-0 9-201 6 Emely Sánchez. [address] [facility], [address] [place], [address], . tel:[phone] Referring Provider: Gonzalo Spears, [address] [facility] [place], [address] . tel:[phone] [facility], [address], [place], [place], [address], [place] tel:[phone] SEC [place] Professional No Information Sep-3 0-201 6 Duarte Fuentes. [address] [facility], [address] [place], [address], . tel:[phone] [facility], [address], [place], [place], [address], [place] tel:[phone] SEC [place] Professional diabetic eye exam (chief complaint) No Information Mar- 7-201 6 Xavinedra Sánchez. [address], [address], [place], [place], [address], [place]. tel:[phone] Referring Provider: Gonzalo Spears, [address] [facility] [address], [place], [address] . tel:[phone] [facility], [address], [place], [place], [address], [place] tel:[phone] SEC Gorge [place] Professional 2 week post op OS (chief complaint) No Information 5 Xavinedra Sánchez. [address] [facility], [address], [place], [place], [address], [place]. tel:[phone] Referring Provider: Gonzalo Spears, [address] [facility] [address], [place], [address] . tel:[phone] [facility], [address], [place], [place], [address], [place] [phone] SEC Gorge CAR[place] Professional 1 day post op (chief complaint) No Information 6-201 5 Duarte Fuentes. [address] [facility], [address], [place], [place], [address], [place]. tel:[phone] Referring Provider: Gonzalo Spears, [address] [facility] [address], [place], [address] . tel:[phone] [facility], [address], [place], [place], [address], [place] [phone] Shadi [facility] No Information Apr- 5-201 5 Hernán Kay. [address], [address], [place], [place], [address], [place]. tel:[phone] Referring Provider: Gonzalo Spears, [address], [place], [address] . tel:[phone] [facility], [address], [place], [place], [address], [place] tel:[phone] SEC [place] Professional 2 week P/O in the right eye (chief complaint) No Information Apr-0 5 Emely Sánchez. [address], [address], [place], [place], [address], [place]. tel:[phone] Referring Provider: Gonzalo Spears, [address] [facility] [address], [place], [address] . tel:[phone] [facility], [address], [place], [place], [address], tel:[phone] SEC [place] Professional 1 day P/O OD (chief complaint) No Information 5 Duarte Fuentes. [address], [address], [place], [place], [address], . tel:[phone] Referring Provider: Gonzalo Spears, [address] [facility] [address], [place], [address] . tel:[phone] [facility], [address], [place], [place], [address], [place] tel:[phone] [facility] No Information 5 Hernán Kay. [address], [address], [place], [place], [address], [place]. tel:[phone] Referring Provider: Gonzalo Spears, [address] [facility] [address], [place], [address] . tel:[phone] Office/outpa tient Visit, Est [facility], [address], [place], [place], [address], [place] tel:[phone] SEC Gorge [place] Professional Cataract Evaluation (chief complaint) No Information 5 Hernán Kay. [address] [place], [place] [address]crest [employer] [address], [place], [place], [address], . tel:[phone] Referring Provider: Gonzalo Spears, [address] [facility] [address], [place], [address] . tel:[phone] [email or web address], [address] [place] [address] [address], [place], [place], [address], tel:[phone] SEC Gorge CAR[place] Professional Diabetic eye exam (chief complaint) No Information 5 Emely Sánchez. [address] [facility], [address] [place], [address], . tel:[phone] Referring Provider: Gonzalo Spears, [address] [facility] [address], [place], [address] . tel:[phone] [email or web address], [address] [place] [address] [address], [place], [place], [address], tel:[phone] [address] [place] [facility] [facility] No Information 5 Orleans Rahul. [address] [place], [place] [address] [facility], [address], [place], [place], [address], . tel:[phone] [email or web address], [address] [place] [address] [address], [place], [place], [address], tel:[phone] SEC Gorge CARMON[place] Professional No Information 3 Emely Sánchez. [address] [facility], [address] [place], [address], . tel:[phone] Referring Provider: Gonzalo Spears, [address] [facility] [place], [address] . tel:[phone] [facility], [address] [place], [place] [address], [place], [place], [address], [place] tel:[phone] SEC Lani Rm No Information 3 Hernán Kay. [address] [facility] [address], [address], [place], [place], [address], [place]. tel:[phone] Family History Family Member Type Diagnosis Age At Onset Multiple Problem (finding) Diabetes mellitus Payers Payer name Insurance type Covered green party ID Authoriza tipita(s) [employer] Mdcr Gold Adv Prime CI [id number] Social History Type Description Quantity Date Captured [...] presents for Complete Exam. HX DM no CHILD DEVELOPMENT SPECIALIST and Cataracts OU. Pt recently has tearing [...] diabetic exam or sooner with any problems. Follow up - Return i n 1 month with Gonzalo Han M.D. for post op exam. Impression/Plan - Pr oceed with Yag PC as scheduled. Patient tolerated procedure well. Return to clinic in 1 months for post op visit or sooner with any problems. After-cataract of le ft eye with vision obscured - Educational material given Related to After-cataract of left eye with vision obscured Follow up - Schedule Yag PC OS [...] for examination following surgery Follow up - RTC as scheduled Impression/Plan - On e day s/p phaco with IOL OS. IOL in good position. Medication instillation and post op instructions reviewed. Pt understands shield use. Pt will call the office immediately with any symptoms of flashes and floaters. RTC as scheduled or sooner if problems. Proceed with CE OS Related to Po stoperative visit Follow up - Proceed with CE OS R elated to Postoperative visit Impression/Plan - Go od post op results after CE OD, Continue to taper post op drops. Proceed with CE OS Related to Postoperative visit Follow up - RTC as s cheduled or sooner if problems. Impression/Plan - On e day s/p phaco with IOL OD. IOL in good position. Trace edema; 2+ cell. Medication instillation and post op instructions reviewed. Pt understands shield use. RTC as scheduled or sooner if problems. SENILE NUCLEAR CATAR ACT - Surgery advised; risks, benefits, alternatives discussed. Related to SENILE NUCLEAR CATARACT - sched CE OD 1st Related to See list of assessments above - Cataracts account for the patient's complaints. [...] given Related to SENILE NUCLEAR CATARACT - schedule cataract evaluation R elated to See list of assessments above - Diabetes, no backg round retinopathy, no signs of neovascularization noted. Discussed ocular and systemic benefits of blood sugar control. DM letter sent to Dr Hernandez. Cataracts account for the patient's complaints. Discussed all risks, benefits, procedures and recovery. Patient understands changing glasses will not improve vision. Patient desires to have surgery, schedule cataract evaluation. Related to See list of assessments above - 1yr Related to Diabe elisa Mellitus Type 2, Uncomplicated no string studies director - Educational materials provided to patient.dm letter [...]
--- OUTSIDE RECORDS SUMMARY | 2025-02-06 12:15 | XMS_ITS | Clinical Summary ---
Author Organization [facility] Address [address] [place] [address] Care Team Providers Care Regulatory Submissions Associate Name Role Phone Jose Maria Hernanedz MD Primary Care Provide r Allergies No [...] Dyspnea 02/16/2020 Coronary artery disease invo lving [place] coronary artery of [place] heart without angina pectoris 02/16/2020 Sensorineural hearing [...] on file Legal Sex Female 11:31 PM MILLER SUPERVISOR Gender Identity Female 11/10/2019 9:28 AM CDT Sexual Orientation Not on file Obstetrics History Last Filed Vital Signs Vital Sign Reading Time Taken Comments Blood Pressure 131/68 07/17/2020 11:24 AM MILLER SUPERVISOR Pulse 73 07/17/2020 11:24 AM MILLER SUPERVISOR Temperature 36.3 C (97.3 F) 02/16/2020 9:49 AM CDT Respiratory Rate - - Oxygen Saturation 100% 02/16/2020 9:49 AM CDT Inhaled Oxygen Concentration - - Weight 76.7 kg (169 lb) 07/17/2020 11:24 AM MILLER SUPERVISOR Height 180.3 cm (5' 11) 07/17/2020 11:24 AM MILLER SUPERVISOR Body Mass Index 23.57 07/17/2020 11:24 AM MILLER SUPERVISOR Plan of Treatment Not on file Insurance [facility] MEDICARE ADVANTAGE [facility] MEDICARE ADVANTAGE Care Teams Regulatory Submissions Associate Relationship Specialty Start Date End Date Jose Maria Hernandez MD [address] [place] [address] PCP - General 11/10/16
--- OUTSIDE RECORDS SUMMARY | 2025-02-06 12:15 | XMS_ITS | Clinical Summary ---
Author Organization [facility] Address [address] [place] [address] Care Team Providers Care Capacitor Pack Press Operator Name Role Phone Annmarie Parada MD Primary Care Provider [phone] Allergies Active Allergy Reactions Criticality Noted Date [...] disease due to type 2 diabetes mellitus ([facility]) 02/13/2024 Esophageal dysphagia 05/28/2022 Overview (05/28/2022): Added automatically from request for surgery [id number] Chronic kidney disease, stage III (moderate) 04/2022 Diabetes ([facility]) 01/06/2022 Chronic pain of both knees 09/26/2021 Postmenopausal 09/26/2021 Precordial pain 09/23/2021 History of [place] (myocardial infarction) 09/23/2021 Coronary artery disease invo lving soboba coronary artery of soboba heart with other form of angina pectoris 02/16/2020 Dyspnea 02/16/2020 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 Hyperlipidemia associated wi th type 2 diabetes mellitus ([facility]) 10/13/2010 Essential (primary) hypertension 10/13/2010 Encounters Date Type Department Care Team Description 02/02/[address] [facility] THREE [facility], [address] [address] Diana Shah ANP- Concerns 01/12/2025 [employer] Message [address] [address] Mychart, [facility] Provider Labs 01/12/2025 Patient Outreach [facility] Multispecialty Care - [address] [place] [address] Gist, Edmund Zheng MA Other [...] Sex Assigned at Female 09/23/2024 11:35 AM HOSPITAL MEDICINE DIRECTOR Legal Sex Female 1:27 PM CDT Gender Identity Female 09/23/2024 11:35 AM HOSPITAL MEDICINE DIRECTOR Sexual Orientation Straight 09/23/2024 11 :35 AM HOSPITAL MEDICINE DIRECTOR Last Filed Vital Signs Vital Sign Reading [...] Description 04/07/2025 9:00 AM CDT Office Visit [facility] Multispecialty Care - [address] [place] [address] Annmarie Parada MD [address] [facility] [address] [place] [address] 06/19/2025 11:45 AM HOSPITAL MEDICINE DIRECTOR Office Visit [facility] [address] [facility] [address] [place] [address] Slim Florence MD Three [facility], [address] [place] [address] Health Maintenance Due Date Last Done Comments [...] 02/17, 03/03/2023, Additional history exists PHQ-2 (Physician [place]) Completed 09/23/2024 Meningococcal B Vaccine Aged Out [...] 11/24/2024 LIPID PANEL Routine 09/23/2024 12:31 PM HOSPITAL MEDICINE DIRECTOR Drug therapy HEMOGLOBIN, GLYCOSYLATED Routine 09/23/2024 12:31 PM HOSPITAL MEDICINE DIRECTOR Drug therapy DIABETIC RETINOPATHY EXAM (NEGATIVE)(SCAN ORDER) Routine 09/08/2023 CT CHEST+ABD+PEL W CON STAT 03/03/2023 1:57 PM CDT BONE DENSITY GENERIC (SCAN ORDER) 12/31/2021 HEPATITIS C ANTIBODY Routine 09/26/2021 10:07 AM HOSPITAL MEDICINE DIRECTOR Annual physical exam Encounter for medical examination to establish care General medical exam Encounter for hepatitis C screening test for low risk patient COLONOSCOPY GENERIC (SCAN ORDER) 01/15/2017 from Last 3 Months or Most Recently Relevant to Health Maintenance Results * PATHOLOGY GENERIC (SCAN ORDER) (11/24/2024) 11/24/2024 [facility] Scanned SCANNING Final Resu lt * (ABNORMAL) HEMOGLOBIN, GLYCOSYLATED (09/23/2024 12:31 PM HOSPITAL MEDICINE DIRECTOR) HGB A1C 6.7(H) 4.5 - 6.2 % 09/24/2024 10:07 AM HOSPITAL MEDICINE DIRECTOR [facility] ESTIMATED AVG GLUCOSE 146(H) 74 - 106 MG/DL 09/24/2024 10:07 AM HOSPITAL MEDICINE DIRECTOR [facility] 09/23/2024 12:3 1 PM HOSPITAL MEDICINE DIRECTOR us Annmarie Parada MD LABORATORY Final Result [facility] [address] [place] [address], * (ABNORMAL) LIPID PANEL (09/23/2024 12:31 PM HOSPITAL MEDICINE DIRECTOR) CHOLESTEROL 155 <200 MG/DL 09/23/2024 8:01 PM HOSPITAL MEDICINE DIRECTOR [facility] TRIGLYCERIDES 182(H) <150 MG/DL 09/23/2024 8:01 PM [facility] HDL 43 >40 MG/DL 09/23/2024 8:01 PM HOSPITAL MEDICINE DIRECTOR [facility] LDL-C 76 <100 MG/DL 09/23/2024 8:01 PM HOSPITAL MEDICINE DIRECTOR [facility] VLDL CALCULATION 36(H) 5 - 28 MG/DL 09/23/2024 8:01 PM HOSPITAL MEDICINE DIRECTOR [facility] CHOL/HDL RATIO 3.6 0.0 - 4.0 09/23/2024 8:01 PM [facility] LDL/HDL 1.8 0.41 - 2.13 09/23/2024 8:01 PM HOSPITAL MEDICINE DIRECTOR [facility] NON HDL CHOLESTEROL 112 <140 MG/DL 09/23/2024 8:01 PM [facility] 09/23/2024 12:3 1 PM HOSPITAL MEDICINE DIRECTOR Annmarie Parada MD LABORATORY Final Result Performing Organization Address City/[facility]/ZIP Co de Phone Number [facility] [address] [place] [address], * DIABETIC RETINOPATHY EXAM (NEGATIVE) (09/08/2023) Doc [...] * HEPATITIS C ANTIBODY (09/26/2021 10:07 AM HOSPITAL MEDICINE DIRECTOR) HEPATITIS C AB NON-REACTI VE NON-REACT JUANCHO 09/27/2021 2:50 PM HOSPITAL MEDICINE DIRECTOR [facility] Comment: ANTIBODIES TO HCV NOT DETECTED. DOES NOT EXCLUDE THE POSSIBILITY OF EXPOSURE TO HCV. 09/26/2021 10:0 7 AM HOSPITAL MEDICINE DIRECTOR Annmarie Parada MD LABORATORY Final Result Performing Organization Address City/State/[facility] Co de Phone Number [facility] [address] [place] [address], [id number] * COLONOSCOPY GENERIC (01/15/2017) 01/15/2017 Narrative 01/15/2017 Ordered by an unspecified provider. us Documents Scanned SCANNING Final Result from Last 3 Months or Most Recently Relevant to Health Maintenance Insurance [employer] Care Teams Capacitor Pack Press Operator Relationship Specialty Start Date End Date Annmarie Parada MD [address] [facility] [address] [place] [address] PCP - General INTERNAL MEDICINE 09/26/21
--- OUTSIDE RECORDS SUMMARY | 2025-02-06 12:15 | XMS_ITS | Encounter Summary ---
Author Organization [facility] Address [address] [place] [address] Care Team Providers Care Publishing Agent Name Role Phone Jose Maria Hernandez MD Primary Care Provider [phone] Annmarie Parada MD Primary Care Provider [phone] Madison Oakley RN Unavailable Encounter Details Date Type Department Care Team (Late st Contact Info) Description 09/25/2021 Abstract [facility], [address] [address] Abner Yin MA Social History Tobacco Use [...] Sex Assigned at Female 09/23/2024 11:35 AM ROLL HAND Legal Sex Female 1:27 PM CDT Gender Identity Female 09/23/2024 11:35 AM ROLL HAND Sexual Orientation Straight 09/23/2024 11 :35 AM ROLL HAND COVID-19 Exposure Response Date Recorded In the last 10 days, have yo u been in contact with someone who was confirmed or suspected to have Coronavirus/COVID-19? No / Unsure 09/25/2021 3:11 PM ROLL HAND documented as of this encounter Plan of Treatment Upcoming Encounters Date Type Department Care Team (Late st Contact Info) Description 04/07/2025 9:00 AM CDT Office Visit [facility] Medical Group Multispecialty Care - [place] [address] [place] [address] [address] [place] [address] Annmarie Parada MD [address] [facility] [address] [place] [address] 06/19/2025 11:45 AM ROLL HAND Office Visit [facility] [place] [address] Slim Florence MD Three [facility], [address] [place] [address] documented as of this encounter Procedures Procedure [...] on filedocumented in this encounter Care Teams Publishing Agent Relationship Specialty Start Date End Date Jose Maria Hernandez MD [address] [place] [address] PCP - General INTERNAL MEDICINE 05/01/21 09/25/21 Annmarie Parada MD [address] [facility] [address] [place] [address] PCP - General INTERNAL MEDICINE 09/26/21 Madison Oakley, RN [address] [place] [address] Machine Tack Puller (Ambulatory) REGISTERED NURSE 03/05/23 04/05/23 documented as of this encounter
--- OUTSIDE RECORDS SUMMARY | 2025-02-06 12:15 | XMS_ITS | Encounter Summary ---
Author Organization [facility] Address [facility] [place] [address] Care Team Providers Care Smog Technician Name Role Phone Annmarie Parada MD Primary Care Provider [phone] Encounter Details Date Type Department Care Team (Late st Contact Info) Description 02/22/2024 [employer] Message Enc [address] [place] [address] [place], [facility] Provider lab results Social History Tobacco Use [...] Sex Assigned at Female 09/23/2024 11:35 AM ESTATE CONSERVATOR Legal Sex Female 1:27 PM CDT Gender Identity Female 09/23/2024 11:35 AM ESTATE CONSERVATOR Sexual Orientation Straight 09/23/2024 11 :35 AM ESTATE CONSERVATOR documented as of this encounter Plan of Treatment Upcoming Encounters Date Type Department Care Team (Late st Contact Info) Description 04/07/2025 9:00 AM CDT Office Visit [address] [place] [address] Annmarie Parada MD [address] [address] 06/19/2025 11:45 AM ESTATE CONSERVATOR Office Visit [facility] [address] [address] Slim Florence MD Three [facility], [address] [place] [address] documented as of this encounter Visit Diagnoses Not on filedocumented in this encounter Additional Health Concerns Assessment Noted Time PHQ-9 Depression Total Score: 0 02/15/20 24 6:18 PM CDT documented as of this encounter Care Teams Smog Technician Relationship Specialty Start Date End Date Annmarie Parada MD [address] [place] [address] PCP - General INTERNAL MEDICINE 09/26/21 documented as of this encounter
--- OUTSIDE RECORDS SUMMARY | 2025-02-06 12:15 | XMS_ITS | Encounter Summary ---
Author Organization [facility] Address [facility] [place] [address] Care Team Providers Care Food Service Ambassador Name Role Phone Annmarie Parada MD Primary Care Provider [phone] Madison Oakley RN Unavailable [phone] Encounter Details Date Type Department Care Team (Late st Contact Info) Description 04/29/2022 [employer] Message Enc [facility] Medical Group Multispecialty Care - [address] [place] [address] Smart [employer] [place], [facility] Provider Lab Results Social History Tobacco Use [...] Sex Assigned at Female 09/23/2024 11:35 AM FINANCIAL AID OFFICER Legal Sex Female 1:27 PM CDT Gender Identity Female 09/23/2024 11:35 AM FINANCIAL AID OFFICER Sexual Orientation Straight 09/23/2024 11 :35 AM FINANCIAL AID OFFICER COVID-19 Exposure Response Date Recorded In the last 10 days, have yo u been in contact with someone who was confirmed or suspected to have Coronavirus/COVID-19? No / Unsure 04/28/2022 8:58 AM CDT documented as of this encounter Plan of Treatment Upcoming Encounters Date Type Department Care Team (Late st Contact Info) Description 04/07/2025 9:00 AM CDT Office Visit [facility] Multispecialty Care - [place] [address] [address] [place] [address] Annmarie Parada MD [address] [place] [address] 06/19/2025 11:45 AM FINANCIAL AID OFFICER Office Visit [facility] [address] Slim Florence MD [facility], [address] [place] [address] documented as of this encounter Visit Diagnoses Not on filedocumented in this encounter Additional Health Concerns Assessment Noted Time PHQ-9 Depression Total Score: 0 09/27/19 22 8:56 AM FINANCIAL AID OFFICER documented as of this encounter Care Teams Food Service Ambassador Relationship Specialty Start Date End Date Annmarie Parada MD [address] [place] [address] PCP - General INTERNAL MEDICINE 09/26/21 Madison Oakley, RN [address] [place] [address] Air Traffic Control Supervisor (Ambulatory) REGISTERED NURSE 03/05/23 documented as of this encounter
--- OUTSIDE RECORDS SUMMARY | 2025-02-06 12:15 | XMS_ITS | Encounter Summary ---
Author Organization [facility] Address [facility] [place] [address] Care Team Providers Care Feeder/Folder Name Role Phone Annmarie Parada MD Primary Care Provider [phone] Madison Oakley RN Unavailable [phone] Encounter Details Date Type Department Care Team (Latest Contact Info) Description 05/02/2022 Solyndrahart Message Enc [facility] Multispecialty Care - [place] [address] [address] [place] [address] Annmarie Parada MD [address] [place] [address] [address] [place] [address] Feosol iron tablets Social History [...] Sex Assigned at Female 09/23/2024 11:35 AM ERP MANAGER Legal Sex Female 1:27 PM CDT Gender Identity Female 09/23/2024 11:35 AM ERP MANAGER Sexual Orientation Straight 09/23/2024 11 :35 AM ERP MANAGER COVID-19 Exposure Response Date Recorded In the last 10 days, have yo u been in contact with someone who was confirmed or suspected to have Coronavirus/COVID-19? No / Unsure 05/05/2022 11:02 AM CDT documented as of this encounter Plan of Treatment Upcoming Encounters Date Type Department Care Team (Late st Contact Info) Description 04/07/2025 9:00 AM CDT Office Visit [facility] Multispecialty Care - [place] [address] [address] [place] [address] Annmarie Parada MD [address] [place] [address] 06/19/2025 11:45 AM ERP MANAGER Office Visit [facility] [address] Slim Florence MD [facility], [address] [place] [address] documented as of this encounter Visit Diagnoses Not on filedocumented in this encounter Additional Health Concerns Assessment Noted Time PHQ-9 Depression Total Score: 0 09/27/19 22 8:56 AM ERP MANAGER documented as of this encounter Care Teams Feeder/Folder Relationship Specialty Start Date End Date Annmarie Parada MD [address] [place] [address] PCP - General INTERNAL MEDICINE 09/26/21 Madison Oakley, RN [address] [place] [address] Roller Repairer (Ambulatory) REGISTERED NURSE 03/05/23 documented as of this encounter
--- OUTSIDE RECORDS SUMMARY | 2025-02-06 12:15 | XMS_ITS | Encounter Summary ---
Author Organization [facility] Address [facility] [place] [address] Care Team Providers Care Senior Mechanical Estimator Name Role Phone Annmarie Parada MD Primary Care Provider [phone] Encounter Details Date Type Department Care Team (Late st Contact Info) Description 01/12/2025 [employer] Message [address] [address] [place], [facility] Provider Labs Social History Tobacco Use Types [...] Sex Assigned at Female 09/23/2024 11:35 AM BACK TENDER PAPER MACHINE Legal Sex Female 1:27 PM CDT Gender Identity Female 09/23/2024 11:35 AM BACK TENDER PAPER MACHINE Sexual Orientation Straight 09/23/2024 11 :35 AM BACK TENDER PAPER MACHINE documented as of this encounter Plan of Treatment Upcoming Encounters Date Type Department Care Team (Late st Contact Info) Description 04/07/2025 9:00 AM CDT Office Visit [facility] Multispecialty Care [address] [place] [phone] Annmarie Parada MD [address] [address] 06/19/2025 11:45 AM BACK TENDER PAPER MACHINE Office Visit [facility] [address] Slim Florence MD [facility], [address] [place] [address] documented as of this encounter Visit Diagnoses Not on filedocumented in this encounter Additional Health Concerns Assessment Noted Time PHQ-9 Depression Total Score: 0 09/24/19 25 6:57 PM BACK TENDER PAPER MACHINE documented as of this encounter Care Teams Senior Mechanical Estimator Relationship Specialty Start Date End Date Annmarie Parada MD [address] [place] [address] PCP - General INTERNAL MEDICINE 09/26/21 documented as of this encounter
--- NOTE | 2025-02-06 12:22 | ED_ITS ---
HPI - General Adult General Chief complaint: Shortness of Breath/Dyspnea Stated complaint: shortness of breath, weakness Time Seen by Provider: 02/06/25 12:04 History of Present Illness HPI narrative: 79-year-old female with prior history of VT presents emergency department for evaluation for worsening exertional shortness of breath. Patient states that over the course of the last few weeks she has had some worsening lower extremity edema, patient denies any prior history congestive heart failure does not take a water pill. Patient reports over the last few days her shortness breath has worsened to the point where she going to take a few steps and she feels out of breath. Patient denies any associated chest pain with this. At rest patient denies any shortness of breath and had time of evaluation patient is in no distress saturating well on room air. Patient is wearing ankle compression socks but does have lower extremity edema. Patient does have history of hypertension but blood pressure is controlled in the emergency department. Patient discusses with her mental health unit lead psychologist was told to be evaluated on or Thursday but patient felt that her symptoms improved but then worsened again over the weekend. Patient is an AFib that is rate controlled. Patient does take Eliquis and diltiazem. Related Data Home Medications ?Medication ?Instructions ?Recorded ?Confirmed ?Last Taken ?Type pantoprazole 40 mg tablet,delayed 40 mg PO DIRECTED 06/10/22 02/06/25 02/06/25 History release apixaban 5 mg tablet (Eliquis) 5 mg PO .q12hr 02/17/24 02/06/25 02/06/25 History atorvastatin 40 mg tablet 40 mg PO HS 02/17/24 02/06/25 02/05/25 History glipizide 5 mg tablet 5 mg PO DAILY 02/17/24 02/06/25 02/06/25 History valsartan 320 1 tablet PO DAILY 02/17/24 02/06/25 02/06/25 History mg-hydrochlorothiazide 12.5 mg tablet Lactobacillus 40-Bifidobact 1 cap PO DAILY 04/28/24 02/06/25 02/06/25 History 3-S.thermophilus 100 billion cell capsule (Probiotic) magnesium 500 mg tablet 500 mg PO BID 04/28/24 02/06/25 02/06/25 History finerenone 10 mg tablet (Kerendia) 10 mg PO DAILY 11/21/24 02/06/25 02/06/25 History metoprolol succinate 25 mg 25 mg PO DAILY 02/06/25 02/06/25 02/06/25 History tablet,extended release 24 hr sennosides 8.6 mg tablet (senna) 8.6 mg PO DAILY 02/06/25 02/06/25 02/06/25 History Allergies Allergy/AdvReac Type Severity Reaction Status Date / Time prednisone AdvReac Intermediate Unknown Verified 02/06/25 17:10 pneumonia vaccine AdvReac Intermediate Swelling Uncoded 02/06/25 17:10 Review of Systems 2 Review of Systems: All systems reviewed & are unremarkable except as noted in HPI and below PMFSH Past Medical History Medical History (Updated 02/06/25 @ 18:05 by Collette Lombardo PA-C) Vitamin D deficiency Mixed hyperlipidemia Atrial fibrillation Hypertension Type 2 diabetes mellitus History of myocardial infarction Surgical History Surgical History (Updated 02/06/25 @ 18:04 by Collette Lombardo PA-C) History of hysterectomy History of carpal tunnel release History of back surgery Family History Family History Sibling Diabetes mellitus Malignant neoplasm of prostate Mother Diabetes mellitus, Onset Age: 67 Acute myocardial infarction, Onset Age: 67 Heart disease Father Diabetes mellitus, Onset Age: 71 Cerebrovascular accident, Onset Age: 71 Social History Social History (Updated 02/06/25 @ 18:05 by Collette Lombardo PA-C) Social History: Surrogate medical decision maker: Code status: Full code. Smoking status: Never smoker Second hand tobacco smoke exposure: Yes Alcohol intake: never Substance use: never Substance use type: does not use Do You Feel Safe in your Home?: Yes Lack of Transportation: No Lack of Food: Never True Current Housing: I Have Housing Concerned About Future Housing: No Difficulty Paying Gas/Electric Bills: No Difficulty Paying for Meds: No Currently Unemployed: No Education: Bachelor's Degree Difficulty w/ Childcare or Family Care: No Living arrangements: with family Occupation/Education: retired Additional occupation/education comments: [employer] Spiritual care concerns: No Exam 2 Narrative: APPEARANCE: Well appearing, no pain, no distress, well-nourished. HEAD: normocephalic, atraumatic. EYES: PERRLA/EOMI, conjunctivae clear. NOSE: Normal no drainage EARS:TMS clear with good light reflex. THROAT: Pharynx clear, no exudate. NECK: Supple. No adenopathy, no masses. RESPIRATORY: Airway patent, respirations nonlabored. Clear to auscultation bilaterally, no rales, rhonchi, wheezing. CARDIOVASCULAR: Regular rate and rhythm without murmurs rubs or gallops. ABDOMINAL: Soft, nontender, nondistended, normal bowel sounds MUSCULOSKELETAL: Bilateral lower extremity edema NEURO: Alert. Cranial nerves II through XII intact. Good gait. Good coordination SKIN: Warm, dry. Normal Color Course Vital Signs Vital signs: Vital Signs Temperature 97.6 F 02/06/25 11:22 Pulse Rate 57 L 02/06/25 11:22 Respiratory Rate 22 H 02/06/25 11:22 Blood Pressure 109/58 L 02/06/25 11:22 Pulse Oximetry 98 02/06/25 11:22 Oxygen Delivery Room Air 02/06/25 11:22 Temperature 98.4 F 02/06/25 14:48 Pulse Rate 102 H 02/06/25 17:15 Respiratory Rate 16 02/06/25 17:15 Blood Pressure 111/56 L 02/06/25 17:15 Pulse Oximetry 100 02/06/25 17:15 Oxygen Delivery Room Air 02/06/25 17:48 Medical Decision Making [facility] Narrative Medical decision making narrative: 79-year-old female presents to the emergency department for evaluation for worsening exertional shortness of breath. Patient has no O2 requirement at rest but patient did desaturate to mid 80s with ambulation. Patient does not have oxygen at home. Patient is afebrile with no leukocytosis and hemoglobin 11.0. Patient's INR is 1.5 and patient's D-dimer 0.43. Patient is on Eliquis. Patient does have an elevated BUN of 33 and a creatinine of 1.44. This creatinine is higher than her baseline. Patient does have an elevated proBNP of 1140. Chest x-ray shows no acute cardiopulmonary abnormality. Patient's lungs are clear to auscultation. Patient does have some lower extremity edema. Patient will need to be admitted for her hypoxia with ambulation. Patient was treated with IV Lasix in the emergency department. Case was discussed with hospitalist patient was accepted for admission. Critical Care Procedure Note Authorized and Performed by: Braden Gutierrez Total critical care time: Approximately 36 minutes Due to a high probability of clinically significant, life threatening deterioration, the patient required my highest level of preparedness to intervene emergently and I personally spent this critical care time directly and personally managing the patient. This critical care time included obtaining a history; examining the patient; pulse oximetry; ordering and review of studies; arranging urgent treatment with development of a management plan; evaluation of patient's response to treatment; frequent reassessment; and, discussions with other providers. This critical care time was performed to assess and manage the high probability of imminent, life-threatening deterioration that could result in multi-organ failure. It was exclusive of separately billable procedures and treating other patients and teaching time. Please see MDM section and the rest of the note for further information on patient assessment and treatment. Vital Signs Vital Signs: Vital Signs Temperature 97.6 F 02/06/25 11:22 Pulse Rate 57 L 02/06/25 11:22 Respiratory Rate 22 H 02/06/25 11:22 Blood Pressure 109/58 L 02/06/25 11:22 Pulse Oximetry 98 02/06/25 11:22 Oxygen Delivery Room Air 02/06/25 11:22 Temperature 98.4 F 02/06/25 14:48 Pulse Rate 102 H 02/06/25 17:15 Respiratory Rate 16 02/06/25 17:15 Blood Pressure 111/56 L 02/06/25 17:15 Pulse Oximetry 100 02/06/25 17:15 Oxygen Delivery Room Air 02/06/25 17:48 Lab Data Lab results reviewed: Yes I reviewed the patient's lab results. 02/06/25 12:42 02/06/25 12:42 Labs: Lab Results 02/06/25 02/06/25 Range/Units 12:42 15:08 WBC 5.8 (4.5-10.0) K/mm3 RBC 4.10 L (4.2-5.4) M/mm3 Hgb 11.0 L (12.0-15.0) g/dL Hct 35.7 L (37.0-47.0) % MCV 87.1 (80-100) fl MCH 26.8 (26-34) pg MCHC 30.8 L (32-36) g/dl RDW 14.0 (11.5-14.5) % Plt Count 216 (150-375) k/mm3 MPV 10.3 (7.4-10.4) fl Immature Gran % (Auto) 0.5 (0-0.5) % Neut % (Auto) 67.7 (45.5-73.1) % Lymph % (Auto) 24.1 (18.3-44.2) % [place] % (Auto) 5.6 (2.6-8.5) % Eos % (Auto) 1.2 (0-4.4) % Baso % (Auto) 0.9 (0.2-1.2) % Lymph # (Auto) 1.39 (0.9-3.2) K/mm3 [place] # (Auto) 0.3 (0.1-0.6) K/mm3 Eos # (Auto) 0.1 (0-0.3) K/mm3 Baso # (Auto) 0.1 (0.0-0.1) K/mm3 Abs Immat Gran (auto) 0.03 (0.00-0.031) K/mm3 Absolute Neuts (auto) 3.9 (1.3-6.7) K/mm3 Absolute Nucleated RBC 0.000 (0.0-0.012) K/mm3 Nucleated RBC % 0.0 (0.0-0.2) % PT 17.5 H (11.1-14.7) Seconds INR 1.5 APTT 28.2 (22.3-36.8) Seconds D-Dimer 0.43 (<0.48) ug/mL Sodium 137 (137-145) mmol/L Potassium 4.9 (3.4-5.0) mmol/L Chloride 108 H (98-107) mmol/L Carbon Dioxide 19 L (22-30) mmol/L Anion Gap 10 (4-12) mmol/L BUN 33 H (7-17) mg/dL Creatinine 1.44 H (0.7-1.0) mg/dL Estim Creat Clear Calc 32 ml/min Estimated GFR 35 L (59 - ) Glucose 188 H (65-110) mg/dL Calcium 9.1 (8.4-10.2) mg/dL Total Bilirubin 0.9 (0.2-1.3) mg/dL AST 34 (14-36) U/L ALT 52 H (6-35) U/L Alkaline Phosphatase 113 (38-126) U/L NT-Pro-B Natriuret Pep 1140 H (19.9-100) pg/mL Total Protein 6.5 (6.3-8.2) g/dL Albumin 3.9 (3.5-5.1) g/dL Urine Color Yellow (Yellow) Urine Appearance Clear (Clear) Urine pH 6.0 (5.0-9.0) Ur Specific [place] 1.016 (1.001-1.035) Urine Protein Negative (Negative) mg/dL Urine Glucose (UA) Negative (Negative) mg/dL Urine Ketones Negative (Negative) mg/dL Ur Blood (Man) Negative (Negative) Urine Nitrate Negative (Negative) Urine Bilirubin Negative (Negative) Urine Urobilinogen 1.0 (<2.0) mg/dL Add Ur Microanalysis Reviewed Leukocyte Esterase Rfl 1+ H (Negative) CHRIS/UL Urine RBC 0-2 (0-2) /hpf Urine WBC 0-5 (0-3) /hpf Ur Squamous Epith Cells None seen (Few) /hpf Urine Bacteria None seen /hpf Urine Casts 0-2 Imaging Data Radiologist's impression: Impressions Chest X-Ray 02/06/25 12:38 IMPRESSION: 1: NO ACUTE CARDIOPULMONARY DISEASE. ECG Data EKG #1: EKG Interpretation: sinus rhythm, atrial fibrillation, atrial flutter, non-specific ST changes, normal QRS and NL axis Critical Care Time Critical Care Time Critical Care Time: Yes Total Critical Care Time: 36 Discharge Plan Discharge Clinical Impression: Exertional shortness of breath, Edema of left lower extremity, Elevated brain natriuretic peptide (BNP) level, Hypoxia, BLANCA (acute kidney injury) Patient Disposition: Still a Patient Condition: Stable
[2025-02-06 12:52] LABS: Hematocrit 35.7 % (37.0-47.0); Hemoglobin 11.0 g/dL (12.0-15.0); Immature Granulocyte Percent A 0.5 % (0-0.5); Lymphocytes Absolute Auto 1.39 K/mm3 (0.9-3.2); Mean Corpuscular HGB Conc 30.8 g/dl (32-36); Mean Corpuscular Hemoglobin 26.8 pg (26-34); Mean Corpuscular Volume 87.1 fl (80-100); Nucleated Red Blood Cells Absolute Auto 0.000 K/mm3 (0.0-0.012); Nucleated Red Blood Cells Perc 0.0 % (0.0-0.2); Platelet Count Result 216 k/mm3 (150-375); Red Blood Count 4.10 M/mm3 (4.2-5.4); White Blood Count 5.8 K/mm3 (4.5-10.0)
[2025-02-06 13:19] LABS: INR 1.5; Partial Thromboplastin Time 28.2 Seconds (22.3-36.8); Prothrombin Time 17.5 Seconds (11.1-14.7)
[2025-02-06 13:23] LABS: Alanine Aminotransferase 52 U/L (6-35); Albumin Level 3.9 g/dL (3.5-5.1); Alkaline Phosphatase 113 U/L (38-126); Anion Gap 10 mmol/L (4-12); Aspartate Amino Transferase 34 U/L (14-36); Bilirubin,Total 0.9 mg/dL (0.2-1.3); Blood Urea Nitrogen 33 mg/dL (7-17); Calcium 9.1 mg/dL (8.4-10.2); Carbon Dioxide 19 mmol/L (22-30); Chloride 108 mmol/L (98-107); Estimated CRCL calculation 32 ml/min; Estimated Glomerular Filt Rate 35; Glucose 188 mg/dL (65-110); Potassium 4.9 mmol/L (3.4-5.0); Sodium 137 mmol/L (137-145); Total Protein 6.5 g/dL (6.3-8.2)
[2025-02-06 13:32] LABS: NT Pro B Type Natriuretic Pept 1140 pg/mL (19.9-100)
--- NOTE | 2025-02-06 14:11 | PC.NURSE ---
Patient has attempted to provide a urine sample, states that if she doesn't get something to drink she's not going to give a urine sample. Patient educated that we need a urine sample and test results to come back before getting anything to eat or drink and that we will need to get a straight cath if we can't get a clean catch urine sample
--- NOTE | 2025-02-06 14:12 | PC.NURSE ---
Addendum entered by Effie Ramirez RN 02/06/25 14:16: Patient ambulated with a steady gait with moderate shortness of breath, with O2 hovering around 85-88% Original Note: Patient ambulated appropriately with a steady gait with no decrease in SPO2.
--- NOTE | 2025-02-06 14:53 | PC.NURSE ---
Patient states unable to provide a urine sample, patient was bladder scanned, 300ML present in the bladder, going to attempt to ambulate the patient to the bathroom again
[2025-02-06] MEDS: FUROSEMIDE INJ 40 MG/4 ML VIAL IV PUSH (15:22)
[2025-02-06 15:38] LABS: Add Urine Microscopic? YES; Appearance Urine Clear (Clear); Glucose Urine UA Negative (Negative); Leukocyte Esterase Ur 1+ LEU/UL (Negative); Need Manual Microscopic Reviewed; Nitrate Urine Negative (Negative); Non Pathogenic Casts 0-2; Specific Grav Ur 1.016 (1.001-1.035)
--- NOTE | 2025-02-06 17:16 | ADMGEN ---
This patient, Emmy Billings, was admitted to [facility] Surg Room 331-02. Patient/family oriented to hospital policies and general routines including ID bracelet, bed and alarms, visiting hours, pain management, procedures, bathroom and other care routines, personal items, smoking policy, room service/diet, and visiting hours. Information on how to activate the Rapid Response Team has been discussed. Patient/Family are encouraged to report perceived risks to care and to ask questions if they do not understand what they are told or what they should do.
--- NOTE | 2025-02-06 17:55 | P.HP_ITS ---
H&P: HPI History of Present Illness Date/Time: 02/06/25 19:00 Chief Complaint: Shortness of breath. Narrative: This is a pleasant 79-year-old female with history of myocardial infarction in 2012 at which time a cardiac catheterization reportedly showed some blockage with what sounds like collateral vessels and no intervention was undertaken, paroxysmal atrial fibrillation on apixaban, hypertension, hyperlipidemia, and type 2 diabetes mellitus who presented to the emergency department via private vehicle with complaints of shortness of breath. She has been getting short of breath when walking from the car to a store for some time however over the last couple of weeks she has noticed slight breathlessness when walking from the bedroom to the kitchen as well as increasing lower extremity edema. She has been wearing compression stockings for the edema with mild benefit. Atrial fibrillation is really asymptomatic and she cannot tell when she is in it. She denies syncope, near syncope, exertional chest pain, pleuritic pain, palpitations, orthopnea, paroxysmal nocturnal dyspnea, calf pain, nausea, vomiting, and sweats. She denies recent illnesses. In the ED: Vital signs on arrival include a temperature of 97.6?, blood pressure 1 air 58, pulse 57, respiratory 22, SpO2 98% on room air. SpO2 dropped to 86% with ambulation. Labs were significant for a hemoglobin of 11.0, chloride 108, carbon dioxide 19, BUN 33, creatinine 1.44, glucose 188, proBNP 1140. Chest x- ray showed no acute cardiopulmonary disease. EKG showed atrial fibrillation with rate of 66. She was given furosemide 40 mg IV and has had good response with that. She is being admitted in this setting for further treatment and evaluation. Review of Systems Review of Systems: 12 systems were reviewed and are negativ e except for as per HPI. [facility] Past Medical History Medical History (Updated 02/06/25 @ 22:58 by Collette Lombardo PA-C) Vitamin D deficiency Mixed hyperlipidemia Atrial fibrillation Hypertension Type 2 diabetes mellitus History of myocardial infarction (2012) Surgical History Surgical History (Updated 02/06/25 @ 22:56 by Collette Lombardo PA-C) History of cardiac catheterization No intervention however per patient report there was blockage with what sounds like collaterals. History of hysterectomy History of carpal tunnel release History of back surgery Family History Family History Sibling Diabetes mellitus Malignant neoplasm of prostate Mother Diabetes mellitus, Onset Age: 67 Acute myocardial infarction, Onset Age: 67 Heart disease Father Diabetes mellitus, Onset Age: 71 Cerebrovascular accident, Onset Age: 71 Social History Social History (Updated 02/06/25 @ 22:56 by Collette Lombardo PA-C) Social History: Surrogate medical decision maker: Zac Billings, spouse. Code status: Full code. Smoking status: Never smoker Second hand tobacco smoke exposure: Yes Alcohol intake: never Substance use: never Substance use type: does not use Do You Feel Safe in your Home?: Yes Lack of Transportation: No Lack of Food: Never True Current Housing: I Have Housing Concerned About Future Housing: No Difficulty Paying Gas/Electric Bills: No Difficulty Paying for Meds: No Currently Unemployed: No Education: Bachelor's Degree Difficulty w/ Childcare or Family Care: No Living arrangements: with family Additional living arrangements comments: Lives with in [place]. Occupation/Education: retired Additional occupation/education comments: [employer]. Spiritual care concerns: No Meds Home Medications and Allergies Home Medications ?Medication ?Instructions ?Recorded ?Confirmed ?Type pregabalin 150 mg capsule 150 mg PO TID #90 caps 08/12/21 02/06/25 Rx pantoprazole 40 mg tablet,delayed 40 mg PO DIRECTED 06/10/22 02/06/25 History release apixaban 5 mg tablet (Eliquis) 5 mg PO .q12hr 02/17/24 02/06/25 History atorvastatin 40 mg tablet 40 mg PO HS 02/17/24 02/06/25 History glipizide 5 mg tablet 5 mg PO DAILY 02/17/24 02/06/25 History valsartan 320 1 tablet PO DAILY 02/17/24 02/06/25 History mg-hydrochlorothiazide 12.5 mg tablet Lactobacillus 40-Bifidobact 1 cap PO DAILY 04/28/24 02/06/25 History 3-S.thermophilus 100 billion cell capsule (Probiotic) magnesium 500 mg tablet 500 mg PO BID 04/28/24 02/06/25 History finerenone 10 mg tablet (Kerendia) 10 mg PO DAILY 11/21/24 02/06/25 History metoprolol succinate 25 mg 25 mg PO DAILY 02/06/25 02/06/25 History tablet,extended release 24 hr sennosides 8.6 mg tablet (senna) 8.6 mg PO DAILY 02/06/25 02/06/25 History Allergies Allergy/AdvReac Type Severity Reaction Status Date / Time prednisone AdvReac Intermediate Unknown Verified 02/06/25 17:10 pneumonia vaccine AdvReac Intermediate Swelling Uncoded 02/06/25 17:10 Vital Signs Vital Signs - 24 hr 02/06/25 11:22 02/06/25 11:34 02/06/25 11:35 Temperature 97.6 F Pulse Rate 57 L 73 79 Respiratory Rate 22 H 13 18 Blood Pressure 109/58 L 109/83 Pulse Oximetry 98 99 100 Oxygen Delivery Room Air 02/06/25 11:45 02/06/25 12:05 02/06/25 12:07 Temperature Pulse Rate 73 67 69 Respiratory Rate 16 16 15 Blood Pressure 93/56 L Pulse Oximetry 100 Oxygen Delivery 02/06/25 12:15 02/06/25 12:30 02/06/25 12:31 Temperature Pulse Rate 69 67 84 Respiratory Rate 25 H 13 18 Blood Pressure 97/49 L Pulse Oximetry 97 Oxygen Delivery 02/06/25 12:51 02/06/25 13:04 02/06/25 13:23 Temperature Pulse Rate 84 75 Respiratory Rate 26 H 28 H 19 Blood Pressure Pulse Oximetry 96 Oxygen Delivery 02/06/25 13:30 02/06/25 13:45 02/06/25 14:00 Temperature Pulse Rate 66 72 77 Respiratory Rate 17 31 H 18 Blood Pressure Pulse Oximetry 100 92 100 Oxygen Delivery 02/06/25 14:15 02/06/25 14:41 02/06/25 14:45 Temperature Pulse Rate 75 79 Respiratory Rate 25 H 15 15 Blood Pressure Pulse Oximetry 95 99 97 Oxygen Delivery 02/06/25 14:48 02/06/25 14:51 02/06/25 14:52 Temperature 98.4 F Pulse Rate 84 80 Respiratory Rate 14 18 Blood Pressure 131/100 H 131/100 H Pulse Oximetry 94 100 100 Oxygen Delivery Room Air Room Air 02/06/25 15:05 02/06/25 15:15 02/06/25 15:16 Temperature Pulse Rate 79 64 Respiratory Rate 15 14 Blood Pressure 112/94 H Pulse Oximetry 86 L 91 100 Oxygen Delivery 02/06/25 15:30 02/06/25 15:31 02/06/25 15:47 Temperature Pulse Rate 75 86 88 Respiratory Rate 15 17 21 H Blood Pressure 116/73 Pulse Oximetry 98 100 Oxygen Delivery 02/06/25 16:05 02/06/25 16:15 02/06/25 16:17 Temperature Pulse Rate 95 80 87 Respiratory Rate 26 H 17 15 Blood Pressure 151/97 H Pulse Oximetry 97 Oxygen Delivery 02/06/25 17:15 02/06/25 17:48 Temperature Pulse Rate 102 H Respiratory Rate 16 Blood Pressure 111/56 L Pulse Oximetry 100 Oxygen Delivery Room Air Exam Narrative: General: Well-developed, nontoxic-appearing female sitting up in bed in no acute distress. Weight: 78.02 kg. BMI: 24.7. HEENT: PERRL, EOMI. Sclera anicteric. Oral mucosa moist. Neck: Supple. No JVD. Respiratory: Lungs are clear to auscultation bilaterally. Cardiovascular: Irregularly irregular rate and rhythm. Gastrointestinal: Abdomen is soft, nontender, and nondistended with positive bowel sounds. Skin: Warm and dry. No rash or lesions on limited exam. There is a healing wound on the right medial calf where she had a basal cell carcinoma excised fairly recently. Extremities: No cyanosis or clubbing. Pitting edema of the lower legs, right greater than left. No palpable knots or cords. Neurological: Alert. Cranial nerves grossly intact. No gross focal deficits to casual conversation. Psychiatric: Pleasant and cooperative with normal mood and affect. Judgment and insight intact. H&P: Results Labs Labs: Short CBC 02/06/25 Range/Units 12:42 WBC 5.8 (4.5-10.0) K/mm3 Hgb 11.0 L (12.0-15.0) g/dL Hct 35.7 L (37.0-47.0) % Plt Count 216 (150-375) k/mm3 BMP 02/06/25 12:42 Sodium 137 Potassium 4.9 Chloride 108 H Carbon Dioxide 19 L BUN 33 H Creatinine 1.44 H Glucose 188 H Calcium 9.1 Liver Function 02/06/25 Range/Units 12:42 Total Bilirubin 0.9 (0.2-1.3) mg/dL AST 34 (14-36) U/L ALT 52 H (6-35) U/L Alkaline Phosphatase 113 (38-126) U/L Albumin 3.9 (3.5-5.1) g/dL Urine 02/06/25 Range/Units 15:08 Urine Color Yellow (Yellow) Urine Appearance Clear (Clear) Urine pH 6.0 (5.0-9.0) Ur Specific [place] 1.016 (1.001-1.035) Urine Protein Negative (Negative) mg/dL Urine Glucose (UA) Negative (Negative) mg/dL Imaging Chest X-Ray 02/06/25 12:38 IMPRESSION: 1: NO ACUTE CARDIOPULMONARY DISEASE. Assessment and Plan Assessment and plan (1) Hypoxia: Code(s): R09.02 - Hypoxemia Status: Acute (2) Renal insufficiency: Code(s): N28.9 - Disorder of kidney and ureter, unspecified Status: Acute (3) Suspected congestive heart failure: Code(s): R09.89 - Other specified symptoms and signs involving the circulatory and respiratory systems Status: Acute (4) Atrial fibrillation: Code(s): I48.91 - Unspecified atrial fibrillation Status: Acute (5) Hypertension: Code(s): I10 - Essential (primary) hypertension Status: Acute (6) Type 2 diabetes mellitus: Code(s): E11.9 - Type 2 diabetes mellitus without complications Status: Acute Plan The patient presented to the emergency department for evaluation of dyspnea on exertion and increasing lower extremity edema over the last couple of weeks as detailed in HPI. Vital signs were stable on arrival although her oxygen level dropped to 85% on room air with ambulation. Etiology is not entirely clear. Her chest x-ray was read as no acute cardiopulmonary disease. Pulmonary embolism is considered to be less likely as she has been on apixaban without break. Given her increasing lower extremity edema, dyspnea with exertion, and elevated proBNP, she may very well have underlying congestive heart failure. She has put out quite a bit of urine with furosemide 40 mg IV given in the ED. Hold on scheduling further diuretics given renal insufficiency. Creatinine today was 1.44 and the last creatinine she had in this computer nearly 4 years ago was 0.60. Echocardiogram has been ordered. She will be monitored on telemetry overnight. At this time she is in atrial fibrillation and is rate controlled on metoprolol. Blood pressures have been running at the lower end of normal and will be monitored closely. For now we will hold valsartan-hydrochlorothiazide given increasing creatinine, pending records from her doctor. Initiate sliding scale insulin, Accu-Cheks, and hypoglycemic protocol. Her home medications will be reviewed and resumed as appropriate. Findings and treatment plan were discussed with the patient. Questions were solicited and answered to satisfaction. The patient's medical management will be taken over by the hospitalist team in a.m. Quality VTE Prophylaxis VTE prophylaxis: pharmacologic ordered (on apixaban) The patient has been admitted under observation status. Hospitalist MIPS Advance Care Plan I have confirmed that the patient's Advanced Care Plan is present, code status is documented, or surrogate decision maker is listed in patient medical record.: Yes Medication Reconciliation I have utilized all available resources to obtain, update and review the pa emilianonts current medications (includes all prescriptions, OTC, herbals, cannabis, and nutritional supplements).: Yes
[2025-02-07] VITALS (9 sets, daily range): BP systolic 91–126; BP diastolic 61–76; PULSE 51–128; RESP 18–20; TEMP 36–36.6; O2SAT 98–100
[2025-02-07 05:37] LABS: Hematocrit 37.4 % (37.0-47.0); Hemoglobin 11.8 g/dL (12.0-15.0); Mean Corpuscular HGB Conc 31.6 g/dl (32-36); Mean Corpuscular Hemoglobin 26.8 pg (26-34); Mean Corpuscular Volume 85.0 fl (80-100); Platelet Count Result 212 k/mm3 (150-375); Red Blood Count 4.40 M/mm3 (4.2-5.4); White Blood Count 6.0 K/mm3 (4.5-10.0)
[2025-02-07 05:56] LABS: Hemoglobin A1C 6.6 % (<5.7)
[2025-02-07 06:02] LABS: Anion Gap 9 mmol/L (4-12); Blood Urea Nitrogen 30 mg/dL (7-17); Calcium 9.1 mg/dL (8.4-10.2); Carbon Dioxide 23 mmol/L (22-30); Chloride 107 mmol/L (98-107); Estimated CRCL calculation 36 ml/min; Estimated Glomerular Filt Rate 42; Glucose 108 mg/dL (65-110); Magnesium 1.3 mg/dL (1.6-2.3); Potassium 4.1 mmol/L (3.4-5.0); Sodium 139 mmol/L (137-145)
[2025-02-07 06:19] LABS: Thyroid Stimulating Hormone Reflex 2.320 uIU/mL (0.465-4.68)
--- NOTE | 2025-02-07 08:08 | PM.IMPN ---
Progress Note: A&P Assessment and Plan (1) Hypoxia: Code(s): R09.02 - Hypoxemia Status: Acute (2) Renal insufficiency: Code(s): N28.9 - Disorder of kidney and ureter, unspecified Status: Acute (3) Suspected congestive heart failure: Code(s): R09.89 - Other specified symptoms and signs involving the circulatory and respiratory systems Status: Acute (4) Atrial fibrillation: Code(s): I48.91 - Unspecified atrial fibrillation Status: Acute (5) Hypertension: Code(s): I10 - Essential (primary) hypertension Status: Acute (6) Type 2 diabetes mellitus: Code(s): E11.9 - Type 2 diabetes mellitus without complications Status: Acute Plan Acute respiratory failure dyspnea on exertion and increased LE edema over the a couple of weeks. Sats dropped to 85% with activity Chest x-ray clear. Has been on apixaban. Improved with diuresis Treatment of LE edema as noted Afib with RVR Rates intermittently 120's-130's, then normalize --Cardiology consulted, appreciate recommendations --Increased metoprolol from 25 to 37.5mg daily --Magnesium low, replaced LE edema NT-proBNP elevated. Symptoms improving with furosemide 40 mg IV given in the ED. --Holding further diuretics given renal insufficiency. CKD Creatinine today was 1.44 and the last creatinine she had in this computer nearly 4 years ago was 0.60. Echocardiogram has been ordered. She will be monitored on telemetry overnight. At this time she is in atrial fibrillation and is rate controlled on metoprolol. Blood pressures have been running at the lower end of normal and will be monitored closely. HTN hold valsartan-hydrochlorothiazide given increasing creatinine, pending further records DMII Initiate sliding scale insulin, Accu-Cheks, and hypoglycemic protocol. Home medications reviewed and resumed as appropriate. Time Spent With Patient Time: 57 minutes Subjective Date/time seen: 02/07/25 09:14 Interval history: Reports shortness of breath and swelling is a new problem for her Had a cardiac cath in 2012 and hasn't had heart failure symptoms with it Had been on metoprolol for years, recently switched to diltiazem but switched back to metoprolol because she wasn't tolerating it. Magnesium was low, 1.3, repleting today, 4G IV TTE pending Would prefer to go home today. Heart rate still 120's intermittently. Consult cardiology for recommendations Review of Systems Review of Systems: 12 systems were reviewed and are negative except for as per HPI. Exam Narrative: General: Well-developed, nontoxic-appearing female sitting up in bed in no acute distress. Weight: 78.02 kg. BMI: 24.7. HEENT: PERRL, EOMI. Sclera anicteric. Oral mucosa moist. Neck: Supple. No JVD. Respiratory: Lungs are clear to auscultation bilaterally. Cardiovascular: Irregularly irregular rate and rhythm. Gastrointestinal: Abdomen is soft, nontender, and nondistended with positive bowel sounds. Skin: Warm and dry. No rash or lesions on limited exam. There is a healing wound on the right medial calf where she had a basal cell carcinoma excised fairly recently. Extremities: No cyanosis or clubbing. Pitting edema of the lower legs, right greater than left. No palpable knots or cords. Neurological: Alert. Cranial nerves grossly intact. No gross focal deficits to casual conversation. Psychiatric: Pleasant and cooperative with normal mood and affect. Judgment and insight intact. Objective Data Vital Signs Vital Signs: Vital Signs - 24 hr 02/06/25 11:22 02/06/25 11:34 02/06/25 11:35 Temperature 97.6 F Pulse Rate 57 L 73 79 Respiratory Rate 22 H 13 18 Blood Pressure 109/58 L 109/83 Pulse Oximetry 98 99 100 Oxygen Delivery Room Air 02/06/25 11:45 02/06/25 12:05 02/06/25 12:07 Temperature Pulse Rate 73 67 69 Respiratory Rate 16 16 15 Blood Pressure 93/56 L Pulse Oximetry 100 Oxygen Delivery 02/06/25 12:15 02/06/25 12:30 02/06/25 12:31 Temperature Pulse Rate 69 67 84 Respiratory Rate 25 H 13 18 Blood Pressure 97/49 L Pulse Oximetry 97 Oxygen Delivery 02/06/25 12:51 02/06/25 13:04 02/06/25 13:23 Temperature Pulse Rate 84 75 Respiratory Rate 26 H 28 H 19 Blood Pressure Pulse Oximetry 96 Oxygen Delivery 02/06/25 13:30 02/06/25 13:45 02/06/25 14:00 Temperature Pulse Rate 66 72 77 Respiratory Rate 17 31 H 18 Blood Pressure Pulse Oximetry 100 92 100 Oxygen Delivery 02/06/25 14:15 02/06/25 14:41 02/06/25 14:45 Temperature Pulse Rate 75 79 Respiratory Rate 25 H 15 15 Blood Pressure Pulse Oximetry 95 99 97 Oxygen Delivery 02/06/25 14:48 02/06/25 14:51 02/06/25 14:52 Temperature 98.4 F Pulse Rate 84 80 Respiratory Rate 14 18 Blood Pressure 131/100 H 131/100 H Pulse Oximetry 94 100 100 Oxygen Delivery Room Air Room Air 02/06/25 15:05 02/06/25 15:15 02/06/25 15:16 Temperature Pulse Rate 79 64 Respiratory Rate 15 14 Blood Pressure 112/94 H Pulse Oximetry 86 L 91 100 Oxygen Delivery 02/06/25 15:30 02/06/25 15:31 02/06/25 15:47 Temperature Pulse Rate 75 86 88 Respiratory Rate 15 17 21 H Blood Pressure 116/73 Pulse Oximetry 98 100 Oxygen Delivery 02/06/25 16:05 02/06/25 16:15 02/06/25 16:17 Temperature Pulse Rate 95 80 87 Respiratory Rate 26 H 17 15 Blood Pressure 151/97 H Pulse Oximetry 97 Oxygen Delivery 02/06/25 17:15 02/06/25 17:48 02/06/25 20:00 Temperature Pulse Rate 102 H 97 Respiratory Rate 16 Blood Pressure 111/56 L Pulse Oximetry 100 Oxygen Delivery Room Air 02/06/25 21:20 02/07/25 04:00 02/07/25 04:45 Temperature 96.1 F L 96.8 F L Pulse Rate 71 128 H 51 L Respiratory Rate 16 20 Blood Pressure 123/76 126/76 Pulse Oximetry 99 98 Oxygen Delivery Intake/Output Intake/Output: Intake & Output 02/04/25 02/05/25 02/06/25 02/07/25 23:59 23:59 23:59 23:59 Intake Total 120 1060 Balance 120 1060 Meds/Results Medications: Active Medications Generic Name Dose Route Start Last Admin Trade Name Freq PRN Reason Stop Dose Admin Acetaminophen 650 mg 02/06/25 23:05 Acetaminophen 325 Mg Tablet PO Q6H PRN Mild Pain (1-3) or Fever Apixaban 5 mg 02/07/25 08:05 Apixaban 5 Mg Tablet PO .q12hr [facility] Dextrose 12.5 gm 02/06/25 23:05 Dextrose 50% 25 Gm/50 Ml Syringe IV PUSH PRN PRN Hypoglycemia Protocol Glucagon 1 mg 02/06/25 23:05 Glucagon For Inj 1 Mg Vial IM PRN PRN Hypoglycemia Protocol Glucose 15 gm 02/06/25 23:05 Glucose Oral Gel 15 Gm Of Glucse In 37.5 Gm Tube PO PRN PRN Hypoglycemia Protocol Dextrose 1,000 mls @ 100 mls/hr 02/06/25 23:05 Dextrose 5% 1,000 Ml IVPB PRN PRN Hypoglycemia Protocol Insulin Aspart 2 - 5 units 02/07/25 08:00 Insulin Aspart (*Bkc) 100 Units/Ml SUB-Q TIDWM CLAUDIA Protocol Insulin Aspart 1 - 2 units 02/06/25 23:10 02/07/25 01:45 Insulin Aspart (*Bkc) 100 Units/Ml SUB-Q Not Given HS [facility] Protocol Metoprolol Succinate 25 mg 02/07/25 09:00 Metoprolol Succinate Ext Rel 25 Mg Tabcr PO DAILY CLAUDIA Non-Formulary Medication 10 mg 02/07/25 09:00 Finerenone [Kerendia] PO 03/09/25 08:59 DAILY CLAUDIA Non-Formulary Medication 1 cap 02/07/25 09:00 Lactobac 40-Bifido 3-S.Thermop [Probiotic] PO 03/09/25 08:59 DAILY [facility] Pantoprazole Sodium 40 mg 02/07/25 08:05 Pantoprazole 40 Mg Tablet PO DIRECTED CLAUDIA Perflutren Lipid Microsphere 0 ml 02/06/25 23:05 Perflutren Lipid Microspheres 1.5 Ml Vial Diluted To 10 Ml Total Volume IV PUSH 02/09/25 23:05 ONCE PRN adequate visualization Protocol Pregabalin 150 mg 02/07/25 09:00 Pregabalin (*Crx) 75 Mg Capsule PO TID [facility] Senna 8.6 mg 02/07/25 09:00 Sennosides 8.6 Mg Tablet PO DAILY [facility] Radiology Results: ITS Impressions Chest X-Ray 02/06/25 12:38 IMPRESSION: 1: NO ACUTE CARDIOPULMONARY DISEASE. Labs Labs: Laboratory Results - last 24 hr 02/06/25 02/06/25 02/07/25 12:42 15:08 05:25 WBC 5.8 6.0 RBC 4.10 L 4.40 Hgb 11.0 L 11.8 L Hct 35.7 L 37.4 MCV 87.1 85.0 MCH 26.8 26.8 MCHC 30.8 L 31.6 L RDW 14.0 13.8 Plt Count 216 212 MPV 10.3 10.0 Immature Gran % (Auto) 0.5 Neut % (Auto) 67.7 Lymph % (Auto) 24.1 [place] % (Auto) 5.6 Eos % (Auto) 1.2 Baso % (Auto) 0.9 Lymph # (Auto) 1.39 [place] # (Auto) 0.3 Eos # (Auto) 0.1 Baso # (Auto) 0.1 Abs Immat Gran (auto) 0.03 Absolute Neuts (auto) 3.9 Absolute Nucleated RBC 0.000 Nucleated RBC % 0.0 PT 17.5 H INR 1.5 APTT 28.2 D-Dimer 0.43 Sodium 137 139 Potassium 4.9 4.1 Chloride 108 H 107 Carbon Dioxide 19 L 23 Anion Gap 10 9 BUN 33 H 30 H Creatinine 1.44 H 1.25 H Estim Creat Clear Calc 32 36 Estimated GFR 35 L 42 L Glucose 188 H 108 Hemoglobin A1c Calcium 9.1 9.1 Magnesium 1.3 L Total Bilirubin 0.9 AST 34 ALT 52 H Alkaline Phosphatase 113 NT-Pro-B Natriuret Pep 1140 H Total Protein 6.5 Albumin 3.9 TSH (Reflex) 2.320 Urine Color Yellow Urine Appearance Clear Urine pH 6.0 Ur Specific [place] 1.016 Urine Protein Negative Urine Glucose (UA) Negative Urine Ketones Negative Ur Blood (Man) Negative Urine Nitrate Negative Urine Bilirubin Negative Urine Urobilinogen 1.0 Add Ur Microanalysis Reviewed Leukocyte Esterase Rfl 1+ H Urine RBC 0-2 Urine WBC 0-5 Ur Squamous Epith Cells None seen Urine Bacteria None seen Urine Casts 0-2 02/07/25 05:26 WBC RBC Hgb Hct MCV MCH MCHC RDW Plt Count MPV Immature Gran % (Auto) Neut % (Auto) Lymph % (Auto) [place] % (Auto) Eos % (Auto) Baso % (Auto) Lymph # (Auto) [place] # (Auto) Eos # (Auto) Baso # (Auto) Abs Immat Gran (auto) Absolute Neuts (auto) Absolute Nucleated RBC Nucleated RBC % PT INR APTT D-Dimer Sodium Potassium Chloride Carbon Dioxide Anion Gap BUN Creatinine Estim Creat Clear Calc Estimated GFR Glucose Hemoglobin A1c 6.6 H Calcium Magnesium Total Bilirubin AST ALT Alkaline Phosphatase NT-Pro-B Natriuret Pep Total Protein Albumin TSH (Reflex) Urine Color Urine Appearance Urine pH Ur Specific [place] Urine Protein Urine Glucose (UA) Urine Ketones Ur Blood (Man) Urine Nitrate Urine Bilirubin Urine Urobilinogen Add Ur Microanalysis Leukocyte Esterase Rfl Urine RBC Urine WBC Ur Squamous Epith Cells Urine Bacteria Urine Casts Quality VTE Prophylaxis VTE prophylaxis: pharmacologic ordered (on apixaban) Hospitalist MIPS Advance Care Plan I have confirmed that the patient's Advanced Care Plan is present, code status is documented, or surrogate decision maker is listed in patient medical record.: Yes Medication Reconciliation I have utilized all available resources to obtain, update and review the patients current medications (includes all prescriptions, OTC, herbals, cannabis, and nutritional supplements).: Yes
[2025-02-07] MEDS: METOPROLOL SUCCINATE EXT REL 25 MG TABCR PO (09:45)
[2025-02-07] MEDS: APIXABAN 5 MG TABLET PO ×2 (09:45→22:23)
[2025-02-07] MEDS: SENNOSIDES 8.6 MG TABLET PO (09:45)
[2025-02-07] MEDS: PANTOPRAZOLE 40 MG TABLET PO (09:45)
[2025-02-07] MEDS: PREGABALIN (*CRX) 75 MG CAPSULE 150 MG PO ×3 (09:46→17:27)
--- NOTE | 2025-02-07 10:58 | P.CONCA_ITS ---
Assessment and Plan Assessment and plan (1) Atrial fibrillation: Code(s): I48.91 - Unspecified atrial fibrillation Status: Acute Assessment and Plan: Paroxysmal atrial fibrillation. Heart rate generally above goal on telemetry review. Will increase metoprolol to 37.5mg daily. Continue anticuagulation with apixaban 5mg p.o. b.i.d. (2) Suspected congestive heart failure: Code(s): R09.89 - Other specified symptoms and signs involving the circulatory and respiratory systems Status: Acute Assessment and Plan: Shortness of breath and edema improved with IV furosemide. Will schedule one more dose of IV furosemide today but likely will not need much more IV diuretic. Echo has been ordered and is pending - further recommendations to follow review of those results. (3) Mixed hyperlipidemia: Code(s): E78.2 - Mixed hyperlipidemia Status: Acute Assessment and Plan: Continue statin (4) CAD (coronary artery disease): Code(s): I25.10 - Atherosclerotic heart disease of [place] coronary artery without angina pectoris Status: Acute Assessment and Plan: Seems stable, however, if echo shows reduced LV function would recommend coronary angiogram to redefine her coronary anatomy. History of Present Illness History of Present Illness Consult date/time: 02/07/25 10:58 Requesting physician: Pita Arroyo APRN Consult reason: atrial fibrillation and congestive heart failure Reason For Visit: hypoxia,paul,edema Narrative: Emmy Billings is a 79 year old female with coronary artery disease (STEMI in 2013, distal occlusion to the RCA treated medically because of extensive right to left collaterals), hypertension, atrial fibrillation, and type 2 diabetes mellitus. This is a patient who presents with complaints of shortness of breath and lower extremity edema. Cardiology is consulted for atrial fibrillation and CHF. Patient reports progressive dyspnea with exertion and lower extremity edema. She states that her shortness of breath became so significant that she could not walk from her car in the parking lot in to [employer] without having to stop to rest. This has been going on for the past few weeks. She denies having any chest pain, palpitations, syncope, presyncope. She is not aware of being in atrial fibrillation-she states that she underwent a cardioversion in June of last year and to her knowledge has not been back in atrial fibrillation however, difficult to assess since she is asymptomatic even with RVR. She has been given IV furosemide and his already noted significant improvement in her breathing and lower extremity swelling. Review of Systems 2 Review of Systems: All systems reviewed & are unremarkable except as noted in HPI and below PMFSH Past Medical History Medical History Vitamin D deficiency Mixed hyperlipidemia Atrial fibrillation Hypertension Type 2 diabetes mellitus History of myocardial infarction (2012) Surgical History Surgical History History of cardiac catheterization No intervention however per patient report there was blockage with what sounds like collaterals. History of hysterectomy History of carpal tunnel release History of back surgery Family History Family History Sibling Diabetes mellitus Malignant neoplasm of prostate Mother Diabetes mellitus, Onset Age: 67 Acute myocardial infarction, Onset Age: 67 Heart disease Father Diabetes mellitus, Onset Age: 71 Cerebrovascular accident, Onset Age: 71 Social History Social History Social History: Surrogate medical decision maker: Zac Billings, spouse. Code status: Full code. Smoking status: Never smoker Second hand tobacco smoke exposure: Yes Alcohol intake: never Substance use: never Substance use type: does not use Do You Feel Safe in your Home?: Yes Lack of Transportation: No Lack of Food: Never True Current Housing: I Have Housing Concerned About Future Housing: No Difficulty Paying Gas/Electric Bills: No Difficulty Paying for Meds: No Currently Unemployed: No Education: Bachelor's Degree Difficulty w/ Childcare or Family Care: No Living arrangements: with family Additional living arrangements comments: Lives with in [place]. 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 Spiritual care concerns: No Meds Home Medications and Allergies Home Medications ?Medication ?Instructions ?Recorded ?Confirmed ?Type pregabalin 150 mg capsule 150 mg PO TID #90 caps 08/12/21 02/06/25 Rx pantoprazole 40 mg tablet,delayed 40 mg PO DIRECTED 06/10/22 02/06/25 History release apixaban 5 mg tablet (Eliquis) 5 mg PO .q12hr 02/17/24 02/06/25 History atorvastatin 40 mg tablet 40 mg PO HS 02/17/24 02/06/25 History glipizide 5 mg tablet 5 mg PO DAILY 02/17/24 02/06/25 History valsartan 320 1 tablet PO DAILY 02/17/24 02/06/25 History mg-hydrochlorothiazide 12.5 mg tablet Lactobacillus 40-Bifidobact 1 cap PO DAILY 04/28/24 02/06/25 History 3-S.thermophilus 100 billion cell capsule (Probiotic) magnesium 500 mg tablet 500 mg PO BID 04/28/24 02/06/25 History finerenone 10 mg tablet (Kerendia) 10 mg PO DAILY 11/21/24 02/06/25 History metoprolol succinate 25 mg 25 mg PO DAILY 02/06/25 02/06/25 History tablet,extended release 24 hr sennosides 8.6 mg tablet (senna) 8.6 mg PO DAILY 02/06/25 02/06/25 History Allergies Allergy/AdvReac Type Severity Reaction Status Date / Time prednisone AdvReac Intermediate Unknown Verified 02/06/25 17:10 pneumonia vaccine AdvReac Intermediate Swelling Uncoded 02/06/25 17:10 Vital Signs Vital Signs - 24 hr 02/06/25 11:22 02/06/25 11:34 02/06/25 11:35 Temperature 36.4 C Pulse Rate 57 L 73 79 Respiratory Rate 22 H 13 18 Blood Pressure 109/58 L 109/83 Pulse Oximetry 98 99 100 Oxygen Delivery Room Air 02/06/25 11:45 02/06/25 12:05 02/06/25 12:07 Temperature Pulse Rate 73 67 69 Respiratory Rate 16 16 15 Blood Pressure 93/56 L Pulse Oximetry 100 Oxygen Delivery 02/06/25 12:15 02/06/25 12:30 02/06/25 12:31 Temperature Pulse Rate 69 67 84 Respiratory Rate 25 H 13 18 Blood Pressure 97/49 L Pulse Oximetry 97 Oxygen Delivery 02/06/25 12:51 02/06/25 13:04 02/06/25 13:23 Temperature Pulse Rate 84 75 Respiratory Rate 26 H 28 H 19 Blood Pressure Pulse Oximetry 96 Oxygen Delivery 02/06/25 13:30 02/06/25 13:45 02/06/25 14:00 Temperature Pulse Rate 66 72 77 Respiratory Rate 17 31 H 18 Blood Pressure Pulse Oximetry 100 92 100 Oxygen Delivery 02/06/25 14:15 02/06/25 14:41 02/06/25 14:45 Temperature Pulse Rate 75 79 Respiratory Rate 25 H 15 15 Blood Pressure Pulse Oximetry 95 99 97 Oxygen Delivery 02/06/25 14:48 02/06/25 14:51 02/06/25 14:52 Temperature 36.9 C Pulse Rate 84 80 Respiratory Rate 14 18 Blood Pressure 131/100 H 131/100 H Pulse Oximetry 94 100 100 Oxygen Delivery Room Air Room Air 02/06/25 15:05 02/06/25 15:15 02/06/25 15:16 Temperature Pulse Rate 79 64 Respiratory Rate 15 14 Blood Pressure 112/94 H Pulse Oximetry 86 L 91 100 Oxygen Delivery 02/06/25 15:30 02/06/25 15:31 02/06/25 15:47 Temperature Pulse Rate 75 86 88 Respiratory Rate 15 17 21 H Blood Pressure 116/73 Pulse Oximetry 98 100 Oxygen Delivery 02/06/25 16:05 02/06/25 16:15 02/06/25 16:17 Temperature Pulse Rate 95 80 87 Respiratory Rate 26 H 17 15 Blood Pressure 151/97 H Pulse Oximetry 97 Oxygen Delivery 02/06/25 17:15 02/06/25 17:48 02/06/25 20:00 Temperature Pulse Rate 102 H 97 Respiratory Rate 16 Blood Pressure 111/56 L Pulse Oximetry 100 Oxygen Delivery Room Air 02/06/25 21:20 02/07/25 04:00 02/07/25 04:45 Temperature 35.6 C L 36.0 C L Pulse Rate 71 128 H 51 L Respiratory Rate 16 20 Blood Pressure 123/76 126/76 Pulse Oximetry 99 98 Oxygen Delivery 02/07/25 09:45 Temperature Pulse Rate 92 Respiratory Rate Blood Pressure Pulse Oximetry Oxygen Delivery Exam 2 Const: General: comfortable, no acute distress, alert and awake O rientation/consciousness: patient oriented x3 HENMT: Head: normal to inspection Eyes: General: appearance normal, both eyes and all related structures P upils: Equal, round and reactive pupils present Neck: Neck: normal visual inspection, supple and no JVD Carotids: normal carotid upstroke Resp: Effort & Inspection: normal respiratory effort Auscultation: crackles bilateral at the base Cardio: Rate: tachycardic Rhythm: abnormal rhythm irregularly irregular Heart sounds: S1 normal heart sound present, S2 normal heart sound present and no murmurs GI: Auscultation: normal bowel sounds Skin: General skin exam: normal color Neuro: General: patient oriented x3 Cranial nerves: Yes Equal, round and reactive pupils present Extrem: General: edema and pedal edema Other: mild edema Psych: Appearance: grossly normal Mental Status: mental status grossly normal Results Labs and Meds 02/07/25 05:25 02/07/25 05:25 Lab results: Cardiac Enzymes 02/06/25 Range/Units 12:42 AST 34 (14-36) U/L Coagulation 02/06/25 Range/Units 12:42 PT 17.5 H (11.1-14.7) Seconds APTT 28.2 (22.3-36.8) Seconds CBC 02/06/25 02/07/25 Range/Units 12:42 05:25 WBC 5.8 6.0 (4.5-10.0) K/mm3 RBC 4.10 L 4.40 (4.2-5.4) M/mm3 Hgb 11.0 L 11.8 L (12.0-15.0) g/dL Hct 35.7 L 37.4 (37.0-47.0) % Plt Count 216 212 (150-375) k/mm3 Lymph # (Auto) 1.39 (0.9-3.2) K/mm3 [place] # (Auto) 0.3 (0.1-0.6) K/mm3 Eos # (Auto) 0.1 (0-0.3) K/mm3 Baso # (Auto) 0.1 (0.0-0.1) K/mm3 Comprehensive Metabolic Panel 02/06/25 02/07/25 Range/Units 12:42 05:25 Sodium 137 139 (137-145) mmol/L Potassium 4.9 4.1 (3.4-5.0) mmol/L Chloride 108 H 107 (98-107) mmol/L Carbon Dioxide 19 L 23 (22-30) mmol/L BUN 33 H 30 H (7-17) mg/dL Creatinine 1.44 H 1.25 H (0.7-1.0) mg/dL Glucose 188 H 108 (65-110) mg/dL Calcium 9.1 9.1 (8.4-10.2) mg/dL AST 34 (14-36) U/L ALT 52 H (6-35) U/L Alkaline Phosphatase 113 (38-126) U/L Total Protein 6.5 (6.3-8.2) g/dL Albumin 3.9 (3.5-5.1) g/dL Intake and Output 02/06/25 02/07/25 02/07/25 23:59 07:59 15:59 Intake Total 120 1060 240 Balance 120 1060 240 Intake: Oral 120 1060 240 Other: # Unmeasured Voids 0 12 Number of Bowel Movements Today 0 Patient Weight 02/07/25 23:59 Weight 77.6 kg
[2025-02-07] MEDS: PERFLUTREN LIPID MICROSPHERES 1.5 ML VIAL DILUTED TO 10 ML TOTAL VOLUME IV PUSH (11:11)
--- NOTE | 2025-02-07 12:13 | IVDEFINITY ---
Prior to administration of IV Definity the patient was educated on the risks and benefits of the imaging enhancing agent including potential adverse side effects. The patient verbalized understanding. Allergies were verified. No exclusion criteria were identified and at least one of the following inclusion criteria were met: 1) physician request, 2) patient technically difficult to image (per the [place] [employer]ocardi[employer] guidelines of two or more segments not discernable within the apical view), or 3) questionable left ventricular function. ?
[2025-02-07] MEDS: METOPROLOL TARTRATE 12.5 MG TABLET PO (13:10)
[2025-02-07] MEDS: MAGNESIUM SULF 4 GM/WATER100ML 4 GM/100 ML BAG IVPB (13:12)
--- NOTE | 2025-02-07 17:55 | PHAR ---
PT'S HOME MED KERENDIA 10 MG TABLET VERIFIED BY PHARMACY
[2025-02-07] MEDS: ATORVASTATIN 40 MG TABLET PO (22:23)
--- NOTE | 2025-02-07 23:05 | ECHO_ITS ---
Patient Info Name: Emmy Billings Age: 79 years : 1945 Gender: Female Ht: 70 in Wt: 172 lbs BSA: 1.97 m2 HR: 71 bpm BP: 123 / 76 mmHg Heart Rhythm: Atrial Fibrillation Technical Quality: Fair Exam Date: 02/07/2025 10:38 AM Patient Status: I Admit Date: 02/07/2025 Exam Type: CA echo dop color flow w con Complete two-dimensional, color flow and Doppler transthoracic echocardiogram is performed with contrast to opacify the left ventricle and to improve the deliniation of the left ventricle endocardial borders. Staff Referring Physician: Collette Lombardo PAC Scenic Designer: Kay Lowry Attending Provider: Vladimir Ayala Contrast/Agitated Saline Contrast/Ag. Saline: Definity Amount: 8.00 ml Administered By: Kay Lowry Existing IV Access: Yes IV Access Condition: patent with no signs of infiltration Summary 1. Technically difficult study with limited views. 2. Left ventricular chamber dimension is normal. 3. Left ventricular systolic function is normal, estimated at 55-60. 4. There is mildly increased left ventricular wall thickness. 5. Right ventricular systolic function is normal. 6. Left atrial chamber dimension is moderately enlarged. 7. Right atrial chamber dimension is mildly enlarged. 8. There is mild aortic valve stenosis. 9. There is mild aortic valve regurgitation. 10. There is mild mitral valve regurgitation. 11. There is mild tricuspid valve regurgitation. Left Ventricle Left ventricular chamber dimension is normal. Left ventricular systolic function is normal, estimated at 55-60. There is mildly increased left ventricular wall thickness. The left ventricular diastolic function is indeterminate. Right Ventricle Right ventricular chamber dimension is normal. Right ventricular systolic function is normal. Left Atria Left atrial chamber dimension is moderately enlarged. Right Atria Right atrial chamber dimension is mildly enlarged. Atrial Septum Intact interatrial septum visualized by color flow imaging. Aortic Valve The aortic valve is trileaflet. There is mild aortic valve stenosis. There is mild aortic valve regurgitation. There is mild aortic valve calcification. Pulmonic Valve The pulmonic valve is not well visualized. There is trace pulmonic regurgitation. Mitral Valve There is mild mitral valve regurgitation. Tricuspid Valve There is mild tricuspid valve regurgitation. Pericardium/Pleural There is no pericardial effusion. Inferior Vena Cava Normal inferior vena cava with >50% collapse upon inspiration consistent with normal right atrial pressure, 3 mmHg. Aorta The aortic root size at the sinus of Valsalva is normal. Left Ventricular Outflow Tract Name Value Normal LVOT 2D LVOT Diameter 1.9 cm LVOT Doppler LVOT Peak Velocity 100 cm/s LVOT Peak Gradient 3 mmHg LVOT Mean Gradient 2 mmHg LVOT VTI 16 cm LVOT VTI/AV VTI Ratio 0.7 LVOT Stroke Volume 45 ml LVOT CO 3.6 l/min LVOT CI 1.8 l/min/m2 Pulmonic Valve Name Value Normal PV Doppler PV Peak Velocity 89 cm/s PV Peak Gradient 3 mmHg Mitral Valve Name Value Normal MV Doppler MV Peak Gradient 6 mmHg MV Mean Gradient 1 mmHg MV Area (Cont Eq VTI) 1.8 cm2 MV Regurgitation Doppler MR Peak Gradient 77 mmHg Tricuspid Valve Name Value Normal TV Regurgitation Doppler TR Peak Velocity 209 cm/s TR Peak Gradient 18 mmHg Estimated PAP/RSVP RA Pressure 3 mmHg <=5 PA Systolic Pressure 21 mmHg <36 RV Systolic Pressure 21 mmHg <36 TV Annular TDI TV Lateral Nanette s' Velocity 10.9 cm/s >=9.5 Aortic Valve Name Value Normal AV Doppler AV Peak Velocity 127 cm/s AV Peak Gradient 6 mmHg AV Mean Gradient 4 mmHg AV VTI 24 cm AV Area (Cont Eq VTI) 1.9 cm2 >=3.0 AV Area (Cont Eq Yasmani) 2.2 cm2 AV DI (Yasmani) 0.79 AV Regurgitation 2D LVOT Area 2.8 cm2 Ventricles Name Value Normal LV Dimensions 2D/MM IVS Diastolic Thickness (2D) 1.0 cm 0.6-1.0 LVID Diastole (2D) 4.6 cm 3.8-5.2 LVIW Diastolic Thickness (2D) 1.0 cm 0.6-0.9 LVID Systole (2D) 3.7 cm 2.2-3.5 LVOT Diameter 1.9 cm LV Mass (2D Cubed) 161.50 g 67.00-162.00 LV Mass Index (2D Cubed) 82 g/m2 43-95 Relative Wall Thickness (2D) 0.43 <=0.42 LV Fractional Shortening/Ejection Fraction 2D/MM LV Fractional Shortening (2D) 21 % 27-45 LV EF (2D Teichholz) 42 % LV Diastolic Volume (4C MOD) 101 ml LV EF (4C MOD) 52 % LV Diastolic Length (4C) 7.2 cm LV Systolic Length (4C) 6.0 cm LV Stroke Volume (4C MOD) 52 ml Atria Name Value Normal LA Dimensions LA Volume (4C A-L) 63 ml LA Volume (BP A-L) 68 ml RA Dimensions RA Systolic Major [place] Length (4C) 5.5 cm 2.2-2.8 RA Area (4C) 18.2 cm2 <=18.0 Report Signatures
[2025-02-08 06:00] VITALS: BP 109/64; PULSE 65; RESP 16; TEMP 36.6; O2SAT 100
[2025-02-08 06:03] LABS: Hematocrit 42.8 % (37.0-47.0); Hemoglobin 13.1 g/dL (12.0-15.0); Immature Granulocyte Percent A 0.4 % (0-0.5); Lymphocytes Absolute Auto 2.53 K/mm3 (0.9-3.2); Mean Corpuscular HGB Conc 30.6 g/dl (32-36); Mean Corpuscular Hemoglobin 26.5 pg (26-34); Mean Corpuscular Volume 86.6 fl (80-100); Nucleated Red Blood Cells Absolute Auto 0.000 K/mm3 (0.0-0.012); Nucleated Red Blood Cells Perc 0.0 % (0.0-0.2); Platelet Count Result 251 k/mm3 (150-375); Red Blood Count 4.94 M/mm3 (4.2-5.4); White Blood Count 8.0 K/mm3 (4.5-10.0)
[2025-02-08 06:28] LABS: Anion Gap 10 mmol/L (4-12); Blood Urea Nitrogen 29 mg/dL (7-17); Calcium 9.4 mg/dL (8.4-10.2); Carbon Dioxide 22 mmol/L (22-30); Chloride 103 mmol/L (98-107); Estimated CRCL calculation 37 ml/min; Estimated Glomerular Filt Rate 42; Glucose 145 mg/dL (65-110); Magnesium 2.4 mg/dL (1.6-2.3); Potassium 4.2 mmol/L (3.4-5.0); Sodium 135 mmol/L (137-145)
[2025-02-08 08:00] VITALS: PULSE 89
--- NOTE | 2025-02-08 08:23 | PM.PNCARD ---
Progress Note: A&P Assessment and Plan (1) Atrial fibrillation: Code(s): I48.91 - Unspecified atrial fibrillation Status: Acute Assessment and Plan: Paroxysmal atrial fibrillation. Heart rate better on telemetry. Continue metoprolol and Eliquis for anticoagulation. Continue metoprolol 37.5 mg. (2) Suspected congestive heart failure: Code(s): R09.89 - Other specified symptoms and signs involving the circulatory and respiratory systems Status: Acute Assessment and Plan: Echo shows preserved ejection fraction. Volume overload likely secondary to AFib with RVR at the time. (3) Mixed hyperlipidemia: Code(s): E78.2 - Mixed hyperlipidemia Status: Acute Assessment and Plan: Continue statin (4) CAD (coronary artery disease): Code(s): I25.10 - Atherosclerotic heart disease of [place] coronary artery without angina pectoris Status: Acute Assessment and Plan: EF normal. Known CAD. Continue risk factor modification including atorvastatin, beta-samantha and ARB Plan Okay for discharge from my perspective Subjective Date/time seen: 02/08/25 08:23 Interval history: 79-year-old admitted for CHF, atrial fibrillation Date of service 02/08/2025: Feels much better. Wants to go home. No chest pain or shortness of breath. No swelling Review of Systems Review of Systems: All systems reviewed & are unremarkable except as noted in HPI and below Constitutional: Constitutional: Denies body ache(s) Eyes: Eyes: Denies blurry vision ENT: Reports Normal hearing present Cardiovascular: Cardiovascular: Denies chest pain Respiratory: Respiratory: Denies dyspnea Gastrointestinal: Gastrointestinal: Denies abdominal pain Genitourinary: Genitourinary: Denies hematuria Musculoskeletal: Musculoskeletal: Denies back pain Integumentary/Breasts: Skin/Breast: Denies erythema Neurologic: Denies Abnormal speech present Psychiatric: Psychiatric: Denies behavioral changes Endocrine: Endocrine: Denies change in body appearance Hematologic/Lymphatic: Hematologic/Lymphatic: Denies easy bleeding Allergic/Immunologic: Allergic/Immunologic: Denies GI upset with certain foods Exam Narrative: Alert oriented appears stated age Const: General: comfortable, no acute distress, alert and awake Orientation/consciousness: patient oriented x3 HENMT: Head: normal to inspection Face/Nose/Sinus: Normal nares present Eyes: General: appearance normal, both eyes and all related structures Sclera: sclerae normal Neck: Neck: normal visual inspection, supple and no JVD Thyroid: thyroid normal Resp: Effort & Inspection: normal respiratory effort Auscultation: no crackles Cardio: Rate: tachycardic Rhythm: abnormal rhythm irregularly irregular Heart sounds: S1 normal heart sound present, S2 normal heart sound present and no murmurs GI: Auscultation: normal bowel sounds Skin: General skin exam: normal color Neuro: General: patient oriented x3 and gait normal Speech: normal speech Motor exam (neuro): 5/5 motor strength present throughout Extrem: General: no edema and no pedal edema Other: mild edema Psych: Appearance: grossly normal Mental Status: mental status grossly normal Objective Data Vital Signs Vital Signs: Vital Signs - 24 hr 02/07/25 09:45 02/07/25 09:45 02/07/25 12:00 Temperature Pulse Rate 92 106 H 79 Respiratory Rate Blood Pressure Pulse Oximetry Oxygen Delivery Room Air 02/07/25 13:10 02/07/25 14:00 02/07/25 16:00 Temperature 36.6 C Pulse Rate 106 H 79 79 Respiratory Rate 18 Blood Pressure 91/61 L Pulse Oximetry 100 Oxygen Delivery 02/07/25 22:00 02/08/25 06:00 Temperature 36.6 C 36.6 C Pulse Rate 70 65 Respiratory Rate 18 16 Blood Pressure 105/61 109/64 Pulse Oximetry 98 100 Oxygen Delivery Intake/Output Intake/Output: Intake & Output 02/05/25 02/06/25 02/07/25 02/08/25 23:59 23:59 23:59 23:59 Intake Total 120 2310 550 Balance 120 2310 550 Meds/Results Medications: Active Medications Generic Name Dose Route Start Last Admin Trade Name Freq PRN Reason Stop Dose Admin Acetaminophen 650 mg 02/06/25 23:05 Acetaminophen 325 Mg Tablet PO Q6H PRN Mild Pain (1-3) or Fever Apixaban 5 mg 02/07/25 09:00 02/07/25 22:23 Apixaban 5 Mg Tablet PO 5 mg Q12HR CLAUDIA Administration Atorvastatin Calcium 40 mg 02/07/25 21:00 02/07/25 22:23 Atorvastatin 40 Mg Tablet PO 40 mg HS CLAUDIA Administration Dextrose 12.5 gm 02/06/25 23:05 Dextrose 50% 25 Gm/50 Ml Syringe IV PUSH PRN PRN Hypoglycemia Protocol Glucagon 1 mg 02/06/25 23:05 Glucagon For Inj 1 Mg Vial IM PRN PRN Hypoglycemia Protocol Glucose 15 gm 02/06/25 23:05 Glucose Oral Gel 15 Gm Of Glucse In 37.5 Gm Tube PO PRN PRN Hypoglycemia Protocol Dextrose 1,000 mls @ 100 mls/hr 02/06/25 23:05 Dextrose 5% 1,000 Ml IVPB PRN PRN Hypoglycemia Protocol Insulin Aspart 2 - 5 units 02/07/25 08:00 02/07/25 17:26 Insulin Aspart (*Bkc) 100 Units/Ml SUB-Q Not Given TIDWM CLAUDIA Protocol Insulin Aspart 1 - 2 units 02/06/25 23:10 02/07/25 21:23 Insulin Aspart (*Bkc) 100 Units/Ml SUB-Q Not Given HS CLAUDIA Protocol Metoprolol Succinate 12.5 mg/ 37.5 mg 02/08/25 09:00 Metoprolol Succinate 25 mg PO QAM CLAUDIA Non-Formulary: 1 each 02/08/25 09:00 Kerendia (Finerenone PO 03/10/25 08:59 10 Mg Oral Tablet) DAILY CLAUDIA Pantoprazole Sodium 40 mg 02/07/25 09:00 02/07/25 09:45 Pantoprazole 40 Mg Tablet PO 40 mg DAILY CLAUDIA Administration Pregabalin 150 mg 02/07/25 09:00 02/07/25 17:27 Pregabalin (*Crx) 75 Mg Capsule PO 150 mg TID CLAUDIA Administration Senna 8.6 mg 02/07/25 09:00 02/07/25 09:45 Sennosides 8.6 Mg Tablet PO 8.6 mg DAILY CLAUDIA Administration Radiology Results: ITS Impressions Chest X-Ray 02/06/25 12:38 IMPRESSION: 1: NO ACUTE CARDIOPULMONARY DISEASE. Venous Doppler Study 02/07/25 09:30 IMPRESSION: 1: No lower extremity deep venous thrombosis. Labs Labs: Laboratory Results - last 24 hr 02/07/25 02/07/25 02/07/25 12:12 16:48 21:16 WBC RBC Hgb Hct MCV MCH MCHC RDW Plt Count MPV Immature Gran % (Auto) Neut % (Auto) Lymph % (Auto) Hand % (Auto) Eos % (Auto) Baso % (Auto) Lymph # (Auto) Hand # (Auto) Eos # (Auto) Baso # (Auto) Abs Immat Gran (auto) Absolute Neuts (auto) Absolute Nucleated RBC Nucleated RBC % Sodium Potassium Chloride Carbon Dioxide Anion Gap BUN Creatinine Estim Creat Clear Calc Estimated GFR Glucose POC Capillary Glucose 109 H 91 107 H Calcium Magnesium 02/08/25 02/08/25 05:47 07:55 WBC 8.0 RBC 4.94 Hgb 13.1 Hct 42.8 MCV 86.6 MCH 26.5 MCHC 30.6 L RDW 13.8 Plt Count 251 MPV 10.2 Immature Gran % (Auto) 0.4 Neut % (Auto) 57.2 Lymph % (Auto) 31.7 Hand % (Auto) 7.8 Eos % (Auto) 1.9 Baso % (Auto) 1.0 Lymph # (Auto) 2.53 Hand # (Auto) 0.6 Eos # (Auto) 0.2 Baso # (Auto) 0.1 Abs Immat Gran (auto) 0.03 Absolute Neuts (auto) 4.6 Absolute Nucleated RBC 0.000 Nucleated RBC % 0.0 Sodium 135 L Potassium 4.2 Chloride 103 Carbon Dioxide 22 Anion Gap 10 BUN 29 H Creatinine 1.23 H Estim Creat Clear Calc 37 Estimated GFR 42 L Glucose 145 H POC Capillary Glucose 142 H Calcium 9.4 Magnesium 2.4 H ECHO 2. Left ventricular chamber dimension is normal. 3. Left ventricular systolic function is normal, estimated at 55-60. 4. There is mildly increased left ventricular wall thickness. 5. Right ventricular systolic function is normal. 6. Left atrial chamber dimension is moderately enlarged. 7. Right atrial chamber dimension is mildly enlarged. 8. There is mild aortic valve stenosis. 9. There is mild aortic valve regurgitation. 10. There is mild mitral valve regurgitation. 11. There is mild tricuspid valve regurgitation.
[2025-02-08 09:07] VITALS: PULSE 81
[2025-02-08] MEDS: PREGABALIN (*CRX) 75 MG CAPSULE 150 MG PO (09:07)
[2025-02-08] MEDS: SENNOSIDES 8.6 MG TABLET PO (09:07)
[2025-02-08] MEDS: METOPROLOL SUCCINATE EXT REL 12.5 MG, METOPROLOL SUCCINATE EXT REL 25 MG 37.5 MG PO (09:07)
[2025-02-08] MEDS: APIXABAN 5 MG TABLET PO (09:09)
[2025-02-08] MEDS: PANTOPRAZOLE 40 MG TABLET PO (09:09)
[2025-02-08] MEDS: KERENDIA 1 EACH PO (09:11)
[2025-02-08 09:27] VITALS: O2SAT 97
--- NOTE | 2025-02-08 09:45 | P.CDI_ITS ---
CDI Query Clarification Request 1) Please clarify if CHF has been ruled in or ruled out 2)Please review the clinical information below and clarify the respiratory diagnosis the patient is being treated for: Hypoxia or hypoxemia without respiratory failure Respiratory distress without respiratory failure Acute respiratory failure with hypoxia Acute respiratory failure with hypercapnia Acute respiratory failure with hypoxia and hypercapnia Acute on chronic respiratory failure with hypoxia Acute on chronic respiratory failure with hypercapnia Acute on chronic respiratory failure with hypoxia and hypercapnia Acute respiratory distress syndrome (ARDS) Chronic respiratory failure with hypoxia Chronic respiratory failure with hypercapnia Chronic respiratory failure with hypoxia and hypercapnia Other explanation clinical findings, please specify Unable to determine The medical chart reflects the followin-year-old female with prior history of [place] presents emergency department for evaluation for worsening exertional shortness of breath. patient states that over the course of the last few weeks she has had some worsening lower extremity edema, patient denies any prior history congestive heart failure does not take a water pill. In the ED: Vital signs on arrival include a temperature of 97.6?, blood pressure 1 air 58, pulse 57, respiratory 22, SpO2 98% on room air. SpO2 dropped to 86% with ambulation. Labs were significant for a hemoglobin of 11.0, chloride 108, carbon dioxide 19, BUN 33, creatinine 1.44, glucose 188, proBNP 1140. Chest x- ray showed no acute cardiopulmonary disease. EKG showed atrial fibrillation with rate of 66. She was given furosemide 40 mg IV and has had good response with that. She is being admitted in this setting for further treatment and evaluation Acute respiratory failure dyspnea on exertion and increased LE edema over the a couple of weeks. Sats dropped to 85% with activity Chest x-ray clear. Has been on apixaban. Improved with diuresis Treatment of LE edema as noted (1) Atrial fibrillation: Code(s): I48.91 - Unspecified atrial fibrillation Status: Acute Assessment and Plan: Paroxysmal atrial fibrillation. Heart rate generally above goal on telemetry review. Will increase metoprolol to 37.5mg daily. Continue anticuagulation with apixaban 5mg p.o. b.i.d. (2) Suspected congestive heart failure: Code(s): R09.89 - Other specified symptoms and signs involving the circulatory and respiratory systems Status: Acute Assessment and Plan: Shortness of breath and edema improved with IV furosemide. Will schedule one more dose of IV furosemide today but likely will not need much more IV diuretic. Echo has been ordered and is pending - further recommendations to follow review of those results. echo: Summary 1. Technically difficult study with limited views. 2. Left ventricular chamber dimension is normal. 3. Left ventricular systolic function is normal, estimated at 55-60. 4. There is mildly increased left ventricular wall thickness. 5. Right ventricular systolic function is normal. 6. Left atrial chamber dimension is moderately enlarged. 7. Right atrial chamber dimension is mildly enlarged. 8. There is mild aortic valve stenosis. 9. There is mild aortic valve regurgitation. 10. There is mild mitral valve regurgitation. 11. There is mild tricuspid valve regurgitation IV lasix 40 mg x1 02/06 BNP 1140 <Mary Herman RN - Last Filed: 02/08/25 09:54> Clarified Diagnosis Clarified Diagnosis: Acute respiratory failure with hypoxia as well as CHF exacerbation --Both are second to afib with RVR <Pita Arroyo APRN - Last Filed: 02/13/25 23:13>
--- NOTE | 2025-02-08 10:09 | PM.DS ---
DS: Admitting Diagnosis Discharge Date 02/08/2025 Admitting Diagnosis Shortness of breath DS: Discharge Diagnosis Discharge Diagnosis (1) Suspected congestive heart failure: Code(s): R09.89 - Other specified symptoms and signs involving the circulatory and respiratory systems Status: Acute (2) Elevated brain natriuretic peptide (BNP) level: Code(s): R79.89 - Other specified abnormal findings of blood chemistry Status: Acute (3) Atrial fibrillation with RVR: Code(s): I48.91 - Unspecified atrial fibrillation Status: Acute (4) BLANCA (acute kidney injury): Code(s): N17.9 - Acute kidney failure, unspecified Status: Acute DS: Summary Hospital Course Reason for hospitalization: Copied from [facility] 02/06: This is a pleasant 79-year-old female with history of myocardial infarction in 2012 at which time a cardiac catheterization reportedly showed some blockage with what sounds like collateral vessels and no intervention was undertaken, paroxysmal atrial fibrillation on apixaban, hypertension, hyperlipidemia, and type 2 diabetes mellitus who presented to the emergency department via private vehicle with complaints of shortness of breath. She has been getting short of breath when walking from the car to a store for some time however over the last couple of weeks she has noticed slight breathlessness when walking from the bedroom to the kitchen as well as increasing lower extremity edema. She has been wearing compression stockings for the edema with mild benefit. Atrial fibrillation is really asymptomatic and she cannot tell when she is in it. She denies syncope, near syncope, exertional chest pain, pleuritic pain, palpitations, orthopnea, paroxysmal nocturnal dyspnea, calf pain, nausea, vomiting, and sweats. She denies recent illnesses. In the ED: Vital signs on arrival include a temperature of 97.6?, blood pressure 1 air 58, pulse 57, respiratory 22, SpO2 98% on room air. SpO2 dropped to 86% with ambulation. Labs were significant for a hemoglobin of 11.0, chloride 108, carbon dioxide 19, BUN 33, creatinine 1.44, glucose 188, proBNP 1140. Chest x-ray showed no acute cardiopulmonary disease. EKG showed atrial fibrillation with rate of 66. She was given furosemide 40 mg IV and has had good response with that. She is being admitted in this setting for further treatment and evaluation. Hospital Course: Acute respiratory failure dyspnea on exertion and increased LE edema over the a couple of weeks. Sats dropped to 85% with activity Chest x-ray clear. Has been on apixaban. Improved with diuresis Treatment of LE edema as noted. Acute exacerbation of CHF LE edema NT-proBNP elevated. CHF likely 2/2 afib with RVR. Symptoms improving with furosemide 40 mg IV given in the ED. --Did not require additional diuretics. Discharged with 40mg daily prn with instructions to contact PCP if using frequently. Afib with RVR Rates intermittently 120's-130's, then normalized --Cardiology consulted, appreciate recommendations. Increased metoprolol from 25 to 37.5mg daily 02/07 Echo 1. Technically difficult study with limited views. 2. Left ventricular chamber dimension is normal. 3. Left ventricular systolic function is normal, estimated at 55-60. 4. There is mildly increased left ventricular wall thickness. 5. Right ventricular systolic function is normal. 6. Left atrial chamber dimension is moderately enlarged. 7. Right atrial chamber dimension is mildly enlarged. 8. There is mild aortic valve stenosis. 9. There is mild aortic valve regurgitation. 10. There is mild mitral valve regurgitation. 11. There is mild tricuspid valve regurgitation. Hypomagnesemia --Magnesium low, 1.3 replaced. Follow up labs in a week --Discharged with magnesium for home. Reported she usually takes magnesium regularly CKD Creatinine today was 1.23-1.44 during admission. Last creatinine she had in this computer nearly 4 years ago was 0.60. She was monitored on telemetry overnight. At this time she is in atrial fibrillation and is rate controlled on metoprolol. Blood pressures have been running at the lower end of normal and will be monitored closely. HTN Held valsartan-hydrochlorothiazide given increasing creatinine, resumed for discharge DMII Initiate sliding scale insulin, Accu-Cheks, and hypoglycemic protocol. Status at Discharge Cognitive/behavioral status at discharge: A&Ox4 Time Spent with Patient Time attestation: Total time spent providing and/or coordinating discharge services:48 minutes Exam Narrative: General: Well-deve loped, nontoxic-ap pearing female sit ting up in bed in no acute distress. Weight: 78.02 kg. BMI: 24.7. HEENT : PERRL, EOMI. Sc kelsy anicteric. O ral mucosa moist. Neck: Supple. No JVD. Respiratory: Lungs are clear t o auscultation yamil aterally. Cardiova scular: Irregularl y irregular rate a nd rhythm. Gastroi ntestinal: Abdome n is soft, nontend er, and nondistend ed with positive b owel sounds. Skin: Warm and dry. N o rash or lesions on limited exam. T here is a healing wound on the right medial calf where she had a basal c ell carcinoma exci sed fairly recentl y. Extremities: N o cyanosis or club chevy. Pitting roseanne a of the lower leg s, right greater t cosme left. No palpa ble knots or cords . Neurological: A lert. Cranial ner ves grossly intact . No gross focal d eficits to casual conversation. Psyc hiatric: Pleasant and cooperative w ith normal mood an d affect. Judgmen t and insight inta ct. DS: Data Data Completed and Pending Labs on day of discharge: Labs from last 24 hours 02/08/25 02/08/25 02/07/25 07:55 05:47 21:16 WBC 8.0 RBC 4.94 Hgb 13.1 Hct 42.8 MCV 86.6 MCH 26.5 MCHC 30.6 L RDW 13.8 Plt Count 251 MPV 10.2 Immature Gran % (Auto) 0.4 Neut % (Auto) 57.2 Lymph % (Auto) 31.7 Pender % (Auto) 7.8 Eos % (Auto) 1.9 Baso % (Auto) 1.0 Lymph # (Auto) 2.53 Pender # (Auto) 0.6 Eos # (Auto) 0.2 Baso # (Auto) 0.1 Abs Immat Gran (auto) 0.03 Absolute Neuts (auto) 4.6 Absolute Nucleated RBC 0.000 Nucleated RBC % 0.0 Sodium 135 L Potassium 4.2 Chloride 103 Carbon Dioxide 22 Anion Gap 10 BUN 29 H Creatinine 1.23 H Estim Creat Clear Calc 37 Estimated GFR 42 L Glucose 145 H POC Capillary Glucose 142 H 107 H Calcium 9.4 Magnesium 2.4 H 02/07/25 02/07/25 16:48 12:12 WBC RBC Hgb Hct MCV MCH MCHC RDW Plt Count MPV Immature Gran % (Auto) Neut % (Auto) Lymph % (Auto) Pender % (Auto) Eos % (Auto) Baso % (Auto) Lymph # (Auto) Pender # (Auto) Eos # (Auto) Baso # (Auto) Abs Immat Gran (auto) Absolute Neuts (auto) Absolute Nucleated RBC Nucleated RBC % Sodium Potassium Chloride Carbon Dioxide Anion Gap BUN Creatinine Estim Creat Clear Calc Estimated GFR Glucose POC Capillary Glucose 91 109 H Calcium Magnesium Discharge Plan Discharge Attending physician on discharge: Pita Arroyo Consulting providers: Yudy Braga; Reza Damian; Kingsley Azar; Kenton Edmonds; Collette Lombardo; Emerson Greenfield Discharging Clinician: Pita Arroyo Anticipated Discharge Date/Time: 02/08/25 10:09 Patient Disposition: Home Activity: november shower Diet: heart healthy Wound Care Instructions: follow printed instructions Discharge Instructions: Follow up with your PCP in 1-2 weeks. Follow up with cardiology in 1 month Ok to take a dose of furosemide (lasix) if you gain more than 2-3 pounds in a day or 5-7 pounds in a week. If you need to take it regularly, you should contact your PCP or Cardiology. You will need more frequent labs. Have your magnesium and potassium rechecked in 1-[address] Edmonds's office is [phone] Patient Instructions: Antibiotic Form Patient Language: Maltese Stand Alone Forms: General Discharge Information Follow-up/Referrals: Tal,MD Annmarie [Primary Care Provider] - 2 Weeks Discharge Medications: New metoprolol succinate [Toprol XL] 25 mg tablet extended release 24 hr 37.5 mg PO QAM Qty: 60 2RF furosemide [Lasix] 40 mg tablet 40 mg PO DAILY PRN (Reason: weight gain) Qty: 30 0RF magnesium 200 mg tablet 200 mg PO DAILY Qty: 30 0RF Continued pantoprazole 40 mg tablet,delayed release (DR/EC) 40 mg PO DIRECTED Rx Instructions: Takes daily tramadol 50 mg tablet 100 mg PO .qhs PRN (Reason: pain) Qty: 60 0RF Kerendia 10 mg tablet 10 mg PO DAILY Eliquis 5 mg tablet 5 mg PO .q12hr atorvastatin 40 mg tablet 40 mg PO HS glipizide 5 mg tablet 5 mg PO DAILY valsartan-hydrochlorothiazide 320-12.5 mg tablet 1 tablet PO DAILY Probiotic 100 billion cell Capsule 1 cap PO DAILY sennosides [senna] 8.6 mg tablet 8.6 mg PO DAILY pregabalin 150 mg capsule 150 mg PO TID Qty: 90 2RF Discontinued magnesium 500 mg Tablet 500 mg PO BID metoprolol succinate 25 mg tablet extended release 24 hr 25 mg PO DAILY Other Ambulatory Orders: Basic Metabolic Panel (Routine) Timeframe: 1 Week Location: Determined by Patient Ordered By: Pita Arroyo Magnesium (Routine) Timeframe: 1 Week Location: Determined by Patient Ordered By: Pita Arroyo Date of admission: 02/07/25 14:53 Primary Care Provider: TalAnnmarie Admitting Provider: Vladimir Ayala Attending physician on admission: Pita Arroyo Condition: Stable Quality VTE Prophylaxis VTE prophylaxis: pharmacologic ordered Hospitalist MIPS Heart Failure (Exclusion) Patient has history of Heart Transplant or Left Ventricular Assistive Device?: No IF YES, STOP HERE Heart Failure (Qualifier) Patient has current or prior documentation of LVEF less than or equal to 40%, or mod/servere depressed LVSF?: No IF NO, STOP HERE
== END 2025-02-08 11:45 | disposition home or self-care (01) | DRG 308 ==
LOC: ANHED 12:25 → ANH3MEDSUR 16:06
PROVIDERS: Physician Assistant; Admitting Provider Internal Medicine; Emergency Provider Emergency Medicine; PCP Internal Medicine; Visit Provider Nurse Practitioner Acute Care
DX: I48.0 Paroxysmal atrial fibrillation (principal); J96.00 Acute respiratory failure, unspecified whether with hypoxia or hypercapnia; I13.0 Hypertensive heart and chronic kidney disease with heart failure and stage 1 through stage 4 chronic kidney disease, or unspecified chronic kidney disease; E11.22 Type 2 diabetes mellitus with diabetic chronic kidney disease; N18.9 Chronic kidney disease, unspecified; I50.9 Heart failure, unspecified; E78.2 Mixed hyperlipidemia; I25.10 Atherosclerotic heart disease of native coronary artery without angina pectoris; E83.42 Hypomagnesemia; I25.2 Old myocardial infarction; Z79.01 Long term (current) use of anticoagulants; Z90.710 Acquired absence of both cervix and uterus
CPT/HCPCS: 36415; 71045; 80048; 80053; 81001; 82948; 83036; 83735; 83880; 84443; 85025; 85027; 85380; 85610; 85730; 87086; 93005; 93970; 96365; 96366; 96374; 96375; 99285; A9270; C8929; G0378; J1938; J3475; Q9957

== ENCOUNTER 2025-06-01 12:26 | Outpatient (CLI) | payer MEDICARE, SELFPAY ==
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
--- NOTE | ~2025-06-01 | MM_ITS ---
EXAMINATION: MM screening darcy BI w eulalio HISTORY: Screening TECHNIQUE: Craniocaudal and mediolateral oblique 3-D tomosynthesis images were obtained and synthetic 2-D images were generated. CAD analysis was submitted and interpreted. COMPARISON: Comparison to multiple prior studies sequentially, with oldest reviewed study dated 09/26/2016. BREAST PARENCHYMAL COMPOSITION: Dense: The breasts are extremely dense, which lowers the sensitivity of mammography. FINDINGS: There is no evidence of suspicious mass, calcification, or architectural distortion to suggest malignancy in either breast. There has been no suspicious interval change. IMPRESSION: 1. No mammographic evidence of malignancy. 2. Recommend routine screening mammography in one year. BI-RADS Category 1: Negative Reviewed, dictated and finalized at location B. UP WORKER
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
--- OUTSIDE RECORDS SUMMARY | 2025-06-01 13:04 | XMS_ITS | Clinical Summary ---
Author Organization [facility] Address [address] [place] [address] Care Team Providers Care Sticker Operator Name Role Phone Jose Maria Hernandez MD [...] Dyspnea 02/16/2020 Coronary artery disease invo lving [place] coronary artery of [place] heart without angina pectoris 02/16/2020 Sensorineural hearing [...] 1 Diabetes Mellit us - (Added by Conv) Diabetes Brother 2 Diabetes Mellit us - (Added by Conv) Coronary artery disease Father Marcell nary [...] Marcell nary Artery Disease - (Added by Conv) Stroke Other 4 Stroke Syndrome - (Added by Conv) Diabetes Sister Diabetes Mellit us - (Added by Conv) Relation Name Status Comments Brother 1 [...] on file Legal Sex Female 11:31 PM CORPORATE COUNSEL Gender Identity Female 11/10/2019 9:28 AM CDT Sexual Orientation Not on file Last Filed Vital Signs Vital Sign Reading Time Taken Comments Blood Pressure 131/68 07/17/2020 11:24 AM CORPORATE COUNSEL Pulse 73 07/17/2020 11:24 AM CORPORATE COUNSEL Temperature 36.3 C (97.3 F) 02/16/2020 9:49 AM CDT Respiratory Rate - - Oxygen Saturation 100% 02/16/2020 9:49 AM CDT Inhaled Oxygen Concentration - - Weight 76.7 kg (169 lb) 07/17/2020 11:24 AM CORPORATE COUNSEL Height 180.3 cm (5' 11) 07/17/2020 11:24 AM CORPORATE COUNSEL Body Mass Index 23.57 07/17/2020 11:24 AM CORPORATE COUNSEL Plan of Treatment Not on file Insurance [employer] MEDICARE [facility] Address: [address] [address] [place] [address] [facility] MEDIC[facility] Address: [address] [address] [place] [address] [facility] MEDIC[facility] Care Teams Sticker Operator Relationship Specialty Start Date End Date Jose Maria Hernandez MD [address] [place], [place] [id number] PCP - General 11/10/16
--- OUTSIDE RECORDS SUMMARY | 2025-06-01 13:04 | XMS_ITS | Encounter Summary ---
Author Organization 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 ILE COLORIST DYER * Tara Wallace RN - 07/10/2020 11:59 PM CST 2/: spoke w/ pt informing her. She will discuss w/ PCP. ILE COLORIST DYER documented in this encounter Plan of Treatment Not on file documented as of this encounter Procedures Procedure Name Priority Date/Time Associated Diagnosis Comments SCAN - LABS 07/10/2020 documented in this encounter Results * SCAN - LABS (07/10/2020) us Provider Scanning Final Result documented in this encounter Visit Diagnoses Not on filedocumented in this encounter Care Teams Litigation Support Analyst Relationship Specialty Start Date End Date Jose Maria Hernandez MD [address] [place] [address] PCP - General 11/10/16 documented as of this encounter
== END 2025-06-01 12:27 | disposition home or self-care (01) ==
PROVIDERS: PCP Internal Medicine; Visit Provider Internal Medicine
DX: Z12.31 Encounter for screening mammogram for malignant neoplasm of breast (principal); Z78.0 Asymptomatic menopausal state
CPT/HCPCS: 77063; 77067; 77080